=== PATIENT | male | born 1960 | race Caucasian/White ===

== ENCOUNTER 2019-12-11 08:20 | Outpatient (CLI) | payer MEDICARE, OTHER, SELFPAY ==
--- NOTE | 2019-12-11 08:29 | USCV_ITS ---
James Yen Age: 59 Gender: M : 1960 Exam Date: 12/11/2019 08:32 Ordering Phys: Mina Santo MD (Andy) ([email or web address] [place]) Technologist: Ronnie Pak [place] [facility] [place]: STEN[place] Risk Factors: Previous Vascular Surgery: Right Brachial BP: / Left Brachial BP: / Right Left Velocity (cm/s) Spectral Plaque Velocity (cm/s) Spectral Plaque Syst/Diast Broadening Syst/Diast Broadening 109.20/36.40 Prox CCA / 120.20/43.00 Mid CCA / 170.90/53.90 Distal CCA / 232.10/102.50 Prox ICA / 206.90/88.10 Mid ICA / 124.10/52.20 Distal ICA / 140.70 ECA 1.93 ICA/CCA Antegrade Vertebral Antegrade 25.20/ 5.00 cm/s 63.10/ 18.40 cm/s Tri Subclavian Tri 64.10 99.10 FINDINGS Comparison:. 05/04/19 Known occluded left CCA and ICA. Elevated velocities and mild turbulence right carotid artery. Slight increase in velocity since the prior exam. Diffuse elevation of velocity therefore probably due to occluded left carotid. Mild atherosclerosis. CONCLUSIONS Known occluded left carotid. Diffuse elevation of velocity on the right, in part due to occluded left carotid. Mild progression since the prior exam. Right ICA stenosis 50-69%. Dr. Rocio Reynolds DO (Electronically Signed) Final Date: 11 December 2019 09:15 S
== END 2019-12-11 08:21 | disposition home or self-care (01) ==
LOC: US 08:24
PROVIDERS: Visit Provider Thoracic Surgery (Cardiothoracic Vascular Surgery)
DX: I65.23 Occlusion and stenosis of bilateral carotid arteries (principal)
CPT/HCPCS: 93880

== ENCOUNTER 2020-02-24 08:02 | Observation (INO) | payer MEDICARE, OTHER, SELFPAY ==
[2020-02-24] VITALS (19 sets, daily range): BP systolic 122–171; BP diastolic 72–119; PULSE 15–94; RESP 16–22; TEMP 36.2–36.9; O2SAT 90–100; BMI 33.4
--- NOTE | 2020-02-24 08:09 | W.ED.ABDPA2 ---
HPI - Abdominal Pain General: Chief Complaint: Abdominal Pain Stated Complaint: ABD PAIN Time Seen by Provider: 02/24/20 08:09 Source: patient Mode of arrival: ambulatory Limitations: no limitations History of Present Illness: HPI narrative: Patient comes in today with right periumbilical abdominal pain x 2days. Patient denies any fever. Patient denies any diarrhea. Patient denies any difficulty with urination. Patient reports nausea due to pain. Patient reports that the pain is colicky at times. Patient has a history of coronary artery disease and atherosclerosis, seasonal allergies, hyperlipidemia, GERD. Patient denies any chest pain or shortness of breath. Last meal was soup at 2100 last evening, had a diet soda this morning. Associated Symptoms: Reports nausea Review of Systems General: Reports: 10 or more systems reviewed and unremarkable except in HPI and below GI: Reports: abdominal pain and nausea PFSH ED PFSH: Social History Smoking and tobacco status: never smoked Alcohol intake: never Physical Exam Const: COMMON NORMALS: no apparent distress and oriented x3 GENERAL APPEARANCE: cooperative HENMT: COMMON NORMALS: normocephalic, TM's normal bilaterally and external nose normal HEAD & SCALP: normal to inspection and normocephalic NOSE: external nose normal TYMPANIC MEMBRANE: TM's normal bilaterally MOUTH: oral and palatal mucosa normal THROAT: posterior oropharynx normal Eye: GENERAL EYE: normal appearance of both eyes Neck/C-Spine: COMMON NORMALS: full ROM Lymph: LYMPHATIC: no lymphadenopathy noted Chest: COMMONS NORMALS: inspection of chest normal Resp: COMMON NORMALS: normal respiratory effort EFFORT & INSPECTION: Yes able to speak in complete sentences Cardio: COMMON NORMALS: regular rate and regular rhythm RATE: regular rate RHYTHM: regular rhythm GI: AUSCULTATION: Yes normoactive bowel sounds PALPATION: Yes tender Details: RLQ : COMMON NORMALS: Yes no CVA tenderness BLADDER/KIDNEY EXAM: Yes no CVA tenderness Back/Pelvis: COMMON NORMALS: no CVA tenderness and thoracic and lumbar spine normal to inspection Extremity: COMMON NORMALS: normal to inspection Neuro: COMMON NORMALS: oriented x3 and moves all extremities Psych: COMMON NORMALS: mental status grossly normal and cooperative Skin: COMMON NORMALS: no rashes or lesions noted GENERAL SKIN EXAM: no rashes or lesions noted Course ED course: 929, reviewed patient CT scan with Dr. Rehman after discussion with Mr. Yen. Patient needs further evaluation of surgery for acute appendicitis. wjw Vital Signs: Vital signs: Vital Signs Temperature 98.3 F 02/24/20 08:10 Pulse Rate 94 02/24/20 08:10 Respiratory Rate 16 02/24/20 08:19 Blood Pressure 138/84 02/24/20 08:10 Pulse Oximetry 97 02/24/20 08:10 MDM - Abdominal Pain MDM Narrative: Medical decision making narrative: Patient comes in with right periumbilical abdominal pain for the last 2 days. Patient came in today due to the pain persisting and him starting to feel nauseous. Patient reports poor appetite. Exam notes right periumbilical tenderness on palpation. Vital signs are normal. Differential diagnosis includes prostatitis, urinary tract infection, appendicitis, colitis. Laboratory values noted a 12,000 white count, some renal dysfunction with a creatinine 1.5, urinalysis with positive white and red blood cells. CT scan of the abdomen and pelvis noted a tender left with inflamed acute appendicitis. Patient needs surgical evaluation with further treatment. Dr. Cruz was consulted and agreed with plan and will see patient for admission. Lab Data: Labs: Lab Results 02/24/20 02/24/20 02/24/20 Range/Units 08:15 08:15 08:20 WBC 12.8 H (4.0-10.0) 10^3/ uL RBC 5.13 (4.1-5.3) 10^6/u L Hgb 15.5 (11.7-16.6) g/dL Hct 47.1 (42.0-52.0) % MCV 91.8 (80-94) fL MCH 30.2 (28.0-34.0) pg MCHC 32.9 (30.0-36.0) g/dL RDW 12.2 (12.1-15.1) % Plt Count 242 (130-400) 10^3/c mm MPV 10.1 (7.4-10.4) fL Neut % (Auto) 74.5 % Lymph % (Auto) 15.1 % [place] % (Auto) 8.5 % Eos % (Auto) 1.0 % Baso % (Auto) 0.5 % Neut # (Auto) 9.5 H (1.8-7.7) 10^3/u L Lymph # (Auto) 1.9 (0.8-4.8) 10^3/u L [place] # (Auto) 1.1 H (0.2-0.9) 10^3/u L Eos # (Auto) 0.1 (0.0-0.8) 10^3/u L Baso # (Auto) 0.1 (0.0-0.1) 10^3/u L Nucleated RBC % (a uto) 0 % Nucleated RBCs # 0.0 /100WBC Sodium 139 (136-145) mmol/L Potassium 4.6 (3.5-5.1) mmol/L Chloride 103 (98-107) mmol/L Carbon Dioxide 23 (22-29) mmol/L Anion Gap 17.6 (5-19) BUN 14 (8-23) mg/dL Creatinine 1.5 H (0.7-1.2) mg/dL GFR Calculation 47.7 L (90-130) mL/min Glucose 111 (65-115) mg/dL Calculated Osmolal ity 285 (285-295) mOsm/k g Calcium 9.8 (8.5-10.5) mg/dL Total Bilirubin 0.5 (0.15-1.2) mg/dL AST 15 (0-40) U/L ALT 13 (0-41) U/L Alkaline Phosphata se 107 (40-130) IU/L Total Protein 8.1 (6.6-8.7) g/dL Albumin 4.3 (3.5-5.2) g/dL Globulin 3.8 (1.3-4.6) g/dL Lipase 23 (13-60) U/L Urine Color Dark yellow (Yellow) Urine Appearance Clear (CLEAR) Urine pH 5 (5-7) Ur Specific Gravit y 1.020 (1.005-1.030) Urine Protein 1+ H (Negative) Urine Glucose (UA) Norm (Normal) Urine Ketones Negative (Negative) Urine Blood 3+ H (Negative) Urine Nitrate Negative (Negative) Urine Bilirubin 1+ H (NEGATIVE) Urine Urobilinogen 1 H (Negative) mg/dL Ur Leukocyte Bernadette ase Negative (Negative) Urine RBC 5-10 H (0-2) /hpf Urine WBC 5-10 H (0-5) /hpf Ur Squamous Epith Cells None (0-5) Urine Bacteria Trace (NONE) Urine Mucus 3+ Discharge Plan Discharge Prescriptions: No Action ranolazine [Ranexa] 500 mg tablet extended release 12 hr 500 mg PO BID RF: 0 clopidogrel [Plavix] 75 mg tablet 75 mg PO DAILY RF: 0 rosuvastatin [Crestor] 20 mg tablet 20 mg PO DAILY RF: 0 loratadine 10 mg tablet 10 mg PO DAILY RF: 0 omeprazole 40 mg capsule,delayed release(DR/EC) 40 mg PO DAILY RF: 0 topiramate 100 mg capsule,extended release 24hr 100 mg PO DAILY RF: 0 fluticasone propion-salmeterol [Advair Diskus] 250-50 mcg/dose blister with device 1 inh INHALATION BID RF: 0 olopatadine [Pataday] 0.1 % drops 1 drop ophthalmic (eye) BID RF: 0 olopatadine [Patanase] 0.6 % spray,non-aerosol 2 spray INTRANASAL BID RF: 0 ropinirole 1 mg tablet 1 mg PO DAILY RF: 0 montelukast [Singulair] 10 mg tablet 10 mg PO DAILY RF: 0 aspirin 325 mg tablet 325 mg PO DAILY RF: 0 ezetimibe 10 mg tablet 10 mg PO DAILY RF: 0 albuterol sulfate [Ventolin HFA] 90 mcg/actuation HFA aerosol inhaler 2 puff INHALATION Q6H PRNRF: 0 Entresto 49-51 mg tablet 1 tab PO BID 30 Days Qty: 60 RF: 5 Coding Level of Care Code ED Computer Numerical Control Grinder for Chg Fwd Exam Comprehensive
[2020-02-24 08:20] LABS: Basophils # 0.1 10^3/uL (0.0-0.1); Basophils % 0.5 %; Eosinophils # 0.1 10^3/uL (0.0-0.8); Hematocrit 47.1 % (42.0-52.0); Hemoglobin 15.5 g/dL (11.7-16.6); Lymphocytes # 1.9 10^3/uL (0.8-4.8); Lymphocytes % 15.1 %; Mean Corpuscular HGB Conc 32.9 g/dL (30.0-36.0); Mean Corpuscular Hemoglobin 30.2 pg (28.0-34.0); Mean Corpuscular Volume 91.8 fL (80-94); Mean Platelet Volume 10.1 fL (7.4-10.4); Monocytes # 1.1 10^3/uL (0.2-0.9); Monocytes % 8.5 %; Neutrophils # 9.5 10^3/uL (1.8-7.7); Neutrophils % 74.5 %; Nucleated Red Blood Cells % 0 %; Platelet Count 242 10^3/cmm (130-400); Red Blood Count 5.13 10^6/uL (4.1-5.3); Red Cell Distribution Width 12.2 % (12.1-15.1); White Blood Count 12.8 10^3/uL (4.0-10.0)
--- NOTE | 2020-02-24 08:20 | CTR_ITS ---
PROCEDURE INFORMATION: Exam: CT Abdomen And Pelvis Without Contrast Exam date and time: 02/24/2020 8:29 AM Age: 59 years old Clinical indication: Abdominal pain; Localized; Right lower quadrant (rlq); Additional info: Right periumbilical pain, nausea TECHNIQUE: Imaging protocol: Computed tomography of the abdomen and pelvis without contrast. Radiation optimization: All CT scans at this facility use at least one of these dose optimization techniques: automated exposure control; mA and/or kV adjustment per patient size (includes targeted exams where dose is matched to clinical indication); or iterative reconstruction. COMPARISON: No relevant prior studies available. RADIATION DOSE METRICS: Total DLP: 1615.96 mGy-cm FINDINGS: Detailed evaluation of the abdominal and pelvic viscera is somewhat limited in the absence of intravenous contrast. Lungs: Interstitial prominence and mild left lower lobe airspace disease. 4 mm left lower lobe nodule.For patients at low risk (minimal or absent history of smoking and of other known risk factors), no routine follow-up is indicated. For patients at high risk (history of smoking or of other known risk factors), consider optional CT Chest at 12 months. [place] H, Fleischner Society, 2017. AICD. Liver: Fatty infiltration of the liver. Gallbladder and bile ducts: No cholelithiasis or biliary ductal dilatation. Pancreas: No pancreatic mass or ductal dilatation. Spleen: No splenomegaly. Adrenals: 13 mm right adrenal adenoma. Kidneys and ureters: 1- 2 mm nonobstructing bilateral renal calculi. Mild bilateral infiltration of perinephric fat. Stomach and bowel: Mild wall thickening in the nondistended stomach. No significant small bowel dilatation. Prominent stool and diverticula, without pericolonic inflammation. Appendix: Appendicolith in the enlarged appendix measuring 14 mm in maximum diameter with prominent infiltration of periappendiceal fat, consistent with acute appendicitis. Intraperitoneal space: Trace free fluid in the right lower quadrant. Vasculature: Vascular calcification. Normal caliber of the abdominal aorta. Lymph nodes: Subcentimeter lymph nodes. Bladder: Circumferential wall thickening in the nondistended bladder. Reproductive: Unremarkable as visualized. Bones/joints: Schmorl's nodes, degenerative change, and disc bulging. CT/CT kidney stone [id number] IMPRESSION: 1. Appendicolith in the enlarged appendix measuring 14 mm in maximum diameter with prominent infiltration of periappendiceal fat, consistent with acute appendicitis. 2. 1- 2 mm nonobstructing bilateral renal calculi. 3. Additional findings as described above. COMMENTS: Consistent with the [employer]'s Incidental Findings Committee white paper (J Am Kathy Radiol 2017): For any incidental adrenal lesion greater than 1.0 cm but less than or equal to 4.0 cm classified in this report as benign or likely benign (including classification as an adenoma or myelolipoma), no follow-up imaging is recommended per consensus recommendations based on imaging criteria. Further lab evaluation could be pursued if warranted based on clinical findings. Radiation Dose CTDIVOL = (mGy): DLP = 1615.96 (mGy-cm)
[2020-02-24 08:35] LABS: Alanine Aminotransferase 13 U/L (0-41); Albumin Level 4.3 g/dL (3.5-5.2); Alkaline Phosphatase 107 IU/L (40-130); Anion Gap 17.6 (5-19); Aspartate Amino Transferase 15 U/L (0-40); Blood Urea Nitrogen 14 mg/dL (8-23); Calcium 9.8 mg/dL (8.5-10.5); Carbon Dioxide 23 mmol/L (22-29); Chloride 103 mmol/L (98-107); Globulin 3.8 g/dL (1.3-4.6); Glomerular Filtration Rate 47.7 mL/min (90-130); Glucose 111 mg/dL (65-115); Lipase 23 U/L (13-60); Osmolality Calculated 285 mOsm/kg (285-295); Potassium 4.6 mmol/L (3.5-5.1); Sodium 139 mmol/L (136-145); Total Bilirubin 0.5 mg/dL (0.15-1.2); Total Protein 8.1 g/dL (6.6-8.7)
[2020-02-24 08:39] LABS: Add Urine Microscopic? YES; Bilirubin Urine 1+ (NEGATIVE); Blood Urine 3+ (Negative); Glucose Urine UA Norm (Normal); Ketones Urine Negative (Negative); Leukocyte Esterase Urine Negative (Negative); Nitrate Urine Negative (Negative); Protein Urine 1+ (Negative); Urine Appearance Clear (CLEAR); Urine Color Dark Yellow (Yellow); Urobilinogen Urine 1 mg/dL (Negative); pH Urine 5 (5-7)
[2020-02-24 08:40] LABS: Add Urine Culture? No; Bacteria Urine TRACE; Mucus Urine 3+
--- NOTE | 2020-02-24 09:30 | ECG_ITS ---
Measurements Intervals [place]ahan Rate: 88 P: 5 CO: 161 QRS: -18 QRSD: 118 T: 86 QT: 348 QTc: 422 SINUS RHYTHM MINIMAL VOLTAGE CRITERIA FOR LVH, CONSIDER NORMAL VARIANT [MEETS CRITERIA IN ONE OF: R(aVL), S(V1), R(V5), R(V5/V6)+S(V1)] INFERIOR MYOCARDIAL INFARCTION , PROBABLY OLD WITH POSTERIOR EXTENSION [40+ ms WAVE AND/OR ST/T ABNORMALITY IN II/aVFPROMINE Compared to ECG 07/15/2017 13:29:02 T-wave abnormality no longer present Possible ischemia no longer present Myocardial infarct finding still present Electronically Signed On 02-24-2020 16:20:50 CDT by Dalton Mireles M.D. [email or web address]
--- NOTE | 2020-02-24 09:30 | XRR_ITS ---
PROCEDURE INFORMATION: Exam: XR Chest, 1 View Exam date and time: 02/24/2020 9:31 AM Age: 59 years old Clinical indication: Other: Rlq pain; Prior surgery; Surgery date: 6+ months; Surgery type: Pacemaker, heart; Additional info: Appendacitis TECHNIQUE: Imaging protocol: XR of the chest Views: 1 view. COMPARISON: CR Chest 2 views* [id number] 09/25/2018 11:33 AM FINDINGS: Lungs: Emphysematous change and mild interstitial prominence. Pleural space: Stable blunting of the left costophrenic angle. Heart/Mediastinum: No cardiomegaly. AICD. Bones/joints: Median sternotomy. Degenerative change. Soft tissues: Surgical clips overlying the left thyroid. When correlating with the previous study, no significant interval changes are present. XR/XR chest 1V portable [id number] IMPRESSION: Stable appearance of the chest, not significantly changed from 09/25/18.
[2020-02-24] MEDS: sodium chloride 0.9% 1,000 ML 999 ML IV (09:45)
[2020-02-24] MEDS: piperacillin-tazobactam 3.375 GM in sodium chloride 0.9% (plus) 50 ML IV ×3 (09:45→23:05)
[2020-02-24] MEDS: morphine 4 mg/mL SDV 1 mL 2 MG IVP ×2 (09:53→17:19)
[2020-02-24] MEDS: ondansetron 2 mg/ML SDV 2 mL 4 MG IVP (09:53)
[2020-02-24] MEDS: sodium chlor 0.9% + KCl 20 mEq 20 MEQ/1,000 ML BAG 125 MEQ IV (10:37)
--- NOTE | 2020-02-24 10:41 | P.ANESASSM_ITS ---
Pre-Anesthetic Assessment Pre-Anesthetic Assessment: Height/Weight: Height 1.73 m Weight 99.79 kg Temp Pulse Resp BP Pulse Ox 98.3 F 94 17 138/84 96 02/24/20 08:10 02/24/20 08:10 02/24/20 09:53 02/24/20 08:10 02/24/20 09:53 Preop Diagnosis: acute appendicitis Proposed Procedure: Operation Date: 02/24/20 10:50 Proposed Procedures p Laparoscopic Appendectomy(Not Applicable) - Isaiah Michelle MD Familial anesthetic complications: None Was Beta Luis Alfredo taken within 24 hours: N/A Last intake: Intake Dr. Bajwa at 729 Last Liquid Date 02/24/20 Last Liquid Time 07:30 Last Solid Date 02/23/20 Last Solid Time 20:30 Social: Social History: No alcohol and No tobacco Exam: Pre-Anes Outpt Exam: alert, oriented x 3, clear to auscultation bilaterally and regular rate & rhythm Airway: Cervical ROM: WNL MP: 3 Additional comments: chipped, missing, dentures Pulmonary: Pulmonary: COPD Comments: 2nd hand smoke exposure on inhalers CV/HEM: CV/HEM: CAD, HTN and MN Comments: CABG X2 Mitral valve repair CHF/cardiomyopathy EF 36% ICD Plavix 2 days ago > 4 METS achievable - can walk up 5 or 6 flights of stairs : Comments: Scr 1.5 Hepatic: Hepatic: None reported GI: GI: GERD Metabolic: Metabolic: Hyperlipidemia Musc/skel: Musc/skel: None reported Neuropsych: Comments: B/L carotid artery stenosis - totally occluded LICA after CEA Anesthetic Plan: ASA status: 4E Anesthesia: General Risk of > 500 ml blood loss (7ml/kg in children): No Meds/Allergies Current Medications: Current Medications Generic Name Dose Route Start Last Admin Trade Name Freq PRN Reason Stop Dose Admin Potassium Chloride /Sodium Chloride 20 meq in 1,000 m ls @ 125 mls/hr 02/24/20 09:45 02/24/20 10:37 Sodium Chlor 0.9 % + Kcl 20 Meq IV 125 mls/hr .Q8H SARAH Administration PFSH Anesthesia PFSH: Social History Smoking and tobacco status: never smoked Alcohol intake: never Data Anesthesia CBC & Chem 7: 02/24/20 08:15 02/24/20 08:15 Other Labs: Laboratory Results - last 48 hr 02/24/20 02/24/20 02/24/20 08:15 08:15 08:20 WBC 12.8 H RBC 5.13 Hgb 15.5 Hct 47.1 MCV 91.8 MCH 30.2 MCHC 32.9 RDW 12.2 Plt Count 242 MPV 10.1 Neut % (Auto) 74.5 Lymph % (Auto) 15.1 [place] % (Auto) 8.5 Eos % (Auto) 1.0 Baso % (Auto) 0.5 Neut # (Auto) 9.5 H Lymph # (Auto) 1.9 [place] # (Auto) 1.1 H Eos # (Auto) 0.1 Baso # (Auto) 0.1 Nucleated RBC % (auto) 0 Nucleated RBCs # 0.0 Sodium 139 Potassium 4.6 Chloride 103 Carbon Dioxide 23 Anion Gap 17.6 BUN 14 Creatinine 1.5 H GFR Calculation 47.7 L Glucose 111 Calculated Osmolality 285 Calcium 9.8 Total Bilirubin 0.5 AST 15 ALT 13 Alkaline Phosphatase 107 Total Protein 8.1 Albumin 4.3 Globulin 3.8 Lipase 23 Urine Color Dark yellow Urine Appearance Clear Urine pH 5 Ur Specific [place] 1.020 Urine Protein 1+ H Urine Glucose (UA) Norm Urine Ketones Negative Urine Blood 3+ H Urine Nitrate Negative Urine Bilirubin 1+ H Urine Urobilinogen 1 H Ur Leukocyte Esterase Negative Urine RBC 5-10 H Urine WBC 5-10 H Ur Squamous Epith Cells None Urine Bacteria Trace Urine Mucus 3+ Cardiac Studies: No Data to Display
[2020-02-24] MEDS: sodium chloride 0.9% 1,000 ML 30 ML IV (10:47)
--- NOTE | 2020-02-24 10:54 | P.HP_ITS ---
Providers/Chief Complaint Admitting Physician: Dr. Michelle Chief Complaint: APPENDECTOMY History of Present Illness James Yen is a 59 year old male who presented to the ER with 1 week history of right lower quadrant pain and nausea but no vomiting. Patient states that his pain progressively got worse yesterday and he had a low-grade fever and therefore he presented to the ER for further evaluation. No prior abdominal surgeries in the past. No prior colonoscopy. He has had a CABG and mitral valve replacement and carotid endarterectomy in the past and is currently on aspirin and Plavix. Review of Systems General: Reports: 10 or more systems reviewed and unremarkable except in HPI and below Medications/Allergies Home Medications Medication Instructions Recorded Confirmed Last Taken Type albuterol sulfate 90 mcg/actuation 2 puff INHALATION Q6H PRN 02/19/20 02/24/20 Unknown History aerosol inhaler aspirin 325 mg tablet 325 mg PO DAILY 02/19/20 02/24/20 02/23/20 History clopidogrel 75 mg tablet 75 mg PO DAILY 02/19/20 02/24/20 02/23/20 History fluticasone 250 mcg-salmeterol 50 1 inh INHALATION BID 02/19/20 02/24/20 02/23/20 History mcg/dose blistr powdr for inhalation montelukast 10 mg tablet 10 mg PO DAILY 02/19/20 02/24/20 02/23/20 History omeprazole 40 mg capsule,delayed 40 mg PO DAILY 02/19/20 02/24/20 02/22/20 History release ranolazine 500 mg tablet,extended 500 mg PO BID 02/19/20 02/24/20 02/23/20 H istory release,12 hr rosuvastatin 20 mg tablet 20 mg PO DAILY 02/19/20 02/24/20 02/22/20 History sacubitril 49 mg-valsartan 51 mg 1 tab PO BID 30 Days #60 tab 02/19/20 02/24/20 02/23/20 Rx tablet topiramate 100 mg capsule,extended 100 mg PO DAILY 02/19/20 02/24/20 02/23/20 History release 24 hr Allergies Allergy/AdvReac Type Severity Reaction Status Date / Time No Known Allergies Allergy Unverified 02/24/20 08:12 PFSH Acute PFSH: Medical History ASHD (arteriosclerotic heart disease) Bilateral carotid artery stenosis Cardiomyopathy CHF (congestive heart failure) GERD (gastroesophageal reflux disease) HTN (hypertension), benign Hyperlipidemia ICD (implantable cardioverter-defibrillator) in place Surgical History H/O right wrist surgery History of ankle surgery History of CEA (carotid endarterectomy) History of mitral valve repair Hx of CABG Family History Other CAD (coronary artery disease) Hypertension Social History Smoking and tobacco status: never smoked Alcohol intake: never Vitals/I&O/Wt Last Vital Signs Temp 98.3 F 02/24/20 08:10 Pulse 15 L 02/24/20 10:41 Resp 16 02/24/20 10:41 BP 124/73 02/24/20 10:41 Pulse Ox 96 02/24/20 10:41 02/23/20 02/24/20 02/24/20 22:59 06:59 14:59 Intake Total 1050 / 1050 Balance 1050 / 1050 Weight last 48 hrs Weight 220 lb Physical Exam Narrative: EXAM NARRATIVE: HEENT: Normocephalic Eye: Sclera /conjunctiva normal Respiratory and chest: Bilateral clear breath sounds on auscultation Cardiovascular: Normal S1 and S2 heart sounds Abdomen: Soft to palpation, tender right lower quadrant, no guarding or rigidity Neurological: Oriented to place person and time Skin: Intact, no lesions appreciated on gross exam Data : 02/24/20 08:15 02/24/20 08:15 CT Abd/Pel: Radiologist's impression: 1. Appendicolith in the enlarged appendix measuring 14 mm in maximum diameter with prominent infiltration of periappendiceal fat, consistent with acute appendicitis. 2. 1- 2 mm nonobstructing bilateral renal calculi. 3. Additional findings as described above. A&P Assessment and plan (1) Acute appendicitis: 59-year-old gentleman with 1 week history of lower abdominal pain currently on aspirin and Plavix due to significant cardiac history. CT abdomen pelvis today showed acute appendicitis no evidence of perforation. Patient is hemodynamically stable with no peritonitis Plan for laparoscopic possible open appendectomy today Procedure, risks, benefits and alternatives have been discussed with the patient who wishes to proceed with surgery. Status: Acute Attestations Medical Necessity Statement*: Acute appendicitis Coding Level of Care Code Acute Patient Transport Orderly for [facility] Claudia Diagnoses Acute appendicitis K35.80
[2020-02-24] MEDS: fentaNYL 50 mcg/mL INJ 2mL 100 MCG IVP (12:35)
[2020-02-24] MEDS: labetalol 5 mg/mL SDV 20mL IVP (12:39)
--- NOTE | 2020-02-24 12:39 | P.OP_ITS ---
Operative Report Date of procedure: February 24, 2020 Pre-op Diagnosis: acute appendicitis Post-op Diagnosis: Acute perforated appendicitis Procedure Done: Laparoscopic appendectomy Specimens removed/disposition: Appendix Surgeon: Isaiah Michelle Anesthesia: General Estimated blood loss (mL): 10 Condition: stable Disposition: PACU Procedure: The patient was taken to the Operating Room and intubated under ge neral anesthesia after antibiotic had been administered. Using a 15 blade, a 1- cm infraumbilical incision was made and using open Rosemary technique, the peritoneal cavity was entered. A 12mm port with balloon was placed and 14 mm of pneumoperitoneum was created and 10-mm 30 degree scope was introduced. Two separate 5mm ports were placed in the left and right lower quadrant under direct visualization. The appendix was noted in the right lower quadrant and appeared acutely inflamed with suppuration.. Using [place] forceps, an opening was made in the mesoappendix near the base of the appendix. An Endo FERMIN stapler 45mm long 3.5mm blue load was introduced to divide the appendix at it's base. Using electrocautery, the mesoappendix including the appendicular artery was divided. And the level of the appendicolith there appeared to be a small perforation. There was no bleeding noted and the staple line appeared intact. The right lower quadrant was irrigated with saline and an EndoCatch bag was introduced to remove the appendix and appendicolith. All three ports were removed under direct visualization and there was no bleeding noted on the port sites. 10cc of 0.5% Marcaine was infiltrated at the port sites. The fascia at the umbilical port was closed using figure of eight 0-Vicryl sutures and subcutaneous tissue was approximated using 3-0 Vicryl and skin at all 3 port sites was closed using 4-0 Monocryl and Dermabond.
--- NOTE | 2020-02-24 13:44 | SUR.PHASEI ---
1226 pt awakes on arrival to pacu oral airway out pt drowsy restless states (i need to pee) 1235 pt now complains of abd pain of 7 see med given pt also given urinal, unable to void at this time.pt BP remains elevated 1239 see Labetol ivip given as ordered 1250 pt BP much improved. 1304 pt awake alert talkative denie pain and nausea, pt unable to use urinal, wants to get up to BR. pt taking sips of sprite, report called to floor and pt has his cell phone , the only belonging he had from ER. pt to floor per cart 1320 pt up and walked to bed no complaints , pt talkative to staff in room. bp 143/87, hr 77, resp 18, sats 96% on RA.
[2020-02-24] MEDS: topiramate 100 mg Tablet PO (14:10)
[2020-02-24] MEDS: lactated ringers 1,000 ML 75 ML IV (14:10)
[2020-02-24] MEDS: HYDROcodone-acetaminophen 5-325 mg Tablet 1 TAB PO (14:10)
[2020-02-24] MEDS: montelukast sodium 10 mg Tablet PO (14:10)
[2020-02-24] MEDS: docusate sodium 100 mg Capsule PO (17:42)
[2020-02-24] MEDS: ranolazine (12HR) 500 mg Tablet PO (17:43)
[2020-02-24] MEDS: sacubitril/valsartan 24-26 mg Tablet 1 EACH PO (17:43)
--- NOTE | 2020-02-24 19:02 | PC.NURSE ---
patient has only urinated a small amount since surgery, bladder scan showed 365mL. patient stated that he did not want to be straight cathed. he asked that we wait about 20 minutes and let him try to pee. passed on to night nurse
--- NOTE | 2020-02-24 21:05 | PC.NURSE ---
Patient walked three laps around the med/surg floor. Had no pain afterwards, wanting to walk more laps throughout the night. Still having pain while urination, has the urge to urinate, but does not want to.
[2020-02-24] MEDS: lidocaine 2% Urojet 20 mL TOPICAL (21:25)
[2020-02-25] MEDS: lactated ringers 1,000 ML 75 ML IV (04:17)
[2020-02-25 07:58] VITALS: BP 152/90; PULSE 83; RESP 17; TEMP 36.3; O2SAT 93
[2020-02-25] MEDS: piperacillin-tazobactam 3.375 GM in sodium chloride 0.9% (plus) 50 ML IV (08:10)
[2020-02-25] MEDS: sacubitril/valsartan 24-26 mg Tablet 1 EACH PO (08:10)
[2020-02-25] MEDS: ranolazine (12HR) 500 mg Tablet PO (08:10)
[2020-02-25] MEDS: montelukast sodium 10 mg Tablet PO (08:10)
[2020-02-25] MEDS: docusate sodium 100 mg Capsule PO (08:11)
[2020-02-25] MEDS: atorvastatin 40 mg Tablet 80 MG PO (08:11)
[2020-02-25] MEDS: pantoprazole DR 40 mg Tablet PO (08:11)
[2020-02-25] MEDS: topiramate 100 mg Tablet PO (08:11)
[2020-02-25] MEDS: albuterol 8 gm MDI 2 PUFF INHALATION (09:14)
[2020-02-25 09:16] VITALS: PULSE 63; RESP 18; O2SAT 96
--- NOTE | 2020-02-25 10:48 | PC.NURSE ---
Pt refused cardiac monitoring, removed leads, reported to Dr. Michelle
[2020-02-25 11:01] VITALS: BP 130/78; PULSE 81; RESP 17; TEMP 36.8; O2SAT 92
[2020-02-25 11:57] VITALS: BP 130/78; PULSE 81; RESP 17; TEMP 36.8; O2SAT 92
[2020-02-25 12:00] VITALS: BP 142/70; PULSE 98; RESP 18; TEMP 36.7; O2SAT 93
--- NOTE | 2020-02-25 12:08 | P.PN_ITS ---
Subjective Subjective: Interval history: Patient has been doing well, no nausea or vomiting still complaining of pain with urination Vitals/I&O/Wt Last Vital Signs Temp 98.3 F 02/25/20 11:57 Pulse 81 02/25/20 11:57 Resp 17 02/25/20 11:57 BP 130/78 02/25/20 11:57 Pulse Ox 92 02/25/20 11:57 02/24/20 02/25/20 02/25/20 22:59 06:59 14:59 Intake Total 410 / 2990 1530 / 2990 Output Total 620 / 1855 1025 / 1855 Balance -210 / 1135 505 / 1135 Weight last 48 hrs Weight 220 lb Physical Exam Narrative: EXAM NARRATIVE: Abdomen: Soft, minimally tender, incision clean dry and intact Urinary Catheter Management^: [place]: Cath Placed During This Visit: yes, but has since been removed by the nurse Urinary Catheter Date of Insertion: 02/24/20 Urinary Catheter Time of Insertion: 11:15 Date Urinary Catheter Removed: 02/24/20 Time Urinary Catheter Discontinued: 12:25 Data : 02/24/20 08:15 02/24/20 08:15 A&P Assessment and plan (1) S/P laparoscopic appendectomy: Status post laparoscopic appendectomy doing well DC home today Status: Acute Attestations Medical Necessity Statement*: Acute appendicitis DC home today Coding Level of Care Code Acute Dip Stand Loader for Crystal Taylor Diagnoses S/P laparoscopic appendectomy Z90.49
--- NOTE | 2020-02-25 12:09 | PM.DCS ---
Discharge Providers Date of Admission: 02/24/20 12:08 Date of Discharge: February 25, 2020 Attending Provider at Admission: Isaiah Michelle MD Attending Provider at Discharge: Isaiah Michelle MD Primary Care Provider: Roger Howe PA-C Diagnoses at Discharge Discharge Diagnosis (1) S/P laparoscopic appendectomy: Status: Acute Reason for Visit Reason for Visit: Reason For Visit: APPENDECTOMY Hospital Course Hospital Course: This is a 59-year-old male who presented to the ER with 1 week history of right lower quadrant pain and CT scan showed acute appendicitis. Patient underwent laparoscopic appendectomy. He was admitted overnight for IV antibiotics since there was concern for possible perforation. Patient also has significant cardiac comorbidities and therefore was monitored overnight. At time of discharge is tolerating a regular diet, ambulating and his pain is well controlled. His vital signs are stable. Physical Exam Narrative: EXAM NARRATIVE: Abdomen: Soft, minimally tender, nondistended, incisions clean dry and intact Urinary Catheter Management^: [place]: Cath Placed During This Visit: yes, but has since been removed by the nurse Urinary Catheter Date of Insertion: 02/24/20 Urinary Catheter Time of Insertion: 11:15 Date Urinary Catheter Removed: 02/24/20 Time Urinary Catheter Discontinued: 12:25 Discharge Data Data Completed and Pending: Completed Studies During Hospitalization Category Date Time Status CT kidney stone 7 4176 Urgent Cat Scan 02/24/20 08:20 Completed XR chest 1V nikolay ble [id number] Stat Exams 02/24/20 09:30 Completed Pending at discharge Category Date Time Status ES surgery / GI i mages Routine Exams 02/24/20 11:14 Taken Pathology: Surgic al [PTH] Routine Pth 02/24/20 12:14 Ordered Vitals: Last Vital Signs Temp 98.3 F 02/25/20 11:57 Pulse 81 02/25/20 11:57 Resp 17 02/25/20 11:57 BP 130/78 02/25/20 11:57 Pulse Ox 92 02/25/20 11:57 Discharge Plan Discharge Patient Disposition: Home, Self-Care Condition: Stable Prescriptions: [place] 5-325 mg tablet 1 tab PO Q6H 7 Days Qty: 20 RF: 0 Colace 100 mg capsule 100 mg PO BID Qty: 30 RF: 0 Continued ranolazine [Ranexa] 500 mg tablet extended release 12 hr 500 mg PO BID RF: 0 clopidogrel [Plavix] 75 mg tablet 75 mg PO DAILY RF: 0 rosuvastatin [Crestor] 20 mg tablet 20 mg PO DAILY RF: 0 omeprazole 40 mg capsule,delayed release(DR/EC) 40 mg PO DAILY RF: 0 topiramate 100 mg capsule,extended release 24hr 100 mg PO DAILY RF: 0 fluticasone propion-salmeterol [Advair Diskus] 250-50 mcg/dose blister with device 1 inh INHALATION BID RF: 0 montelukast [Singulair] 10 mg tablet 10 mg PO DAILY RF: 0 aspirin 325 mg tablet 325 mg PO DAILY RF: 0 albuterol sulfate [Ventolin HFA] 90 mcg/actuation HFA aerosol inhaler 2 puff INHALATION Q6H PRN (Reason: Shortness Of Breath) RF: 0 Entresto 49-51 mg tablet 1 tab PO BID 30 Days Qty: 60 RF: 5 Discharge Orders: Discharge Order (Routine); Ordered 02/25/20 Ordered By: Isaiah Michelle Referrals: Isaiah Michelle MD [Physician] - 2 weeks Activity Restrictions/Additional Instructions: 1. Up and walking as tolerated. 2. Ok to shower in 48 hours after surgery. 3. Remove Dermabond dressing in 7-10 days. 4. Do not lift more than 10 pounds. 5. Do not operate heavy machinery or drive while using pain medications. 6. Advised to return to ER or contact my office if there are any signs of infection like, increasing pain, fevers, chills, redness or drainage of pus. Discharge Attestations Time Spent in Discharge Care*: less than 30 min Quality Metrics Clinical Quality Measures During this hospital stay, did patient experience: None Coding Level of Care Code Acute Geospatial Technician for Chg Fwd Diagnoses S/P laparoscopic appendectomy Z90.49
--- NOTE | 2020-02-25 13:25 | PC.NURSE ---
Discharge Discharge instructions given and reviewed with patient, patient signed release paperwork, verbalized understanding. IV removed, tip intact, patient tolerated well, scripts sent to pharmacy. Went to patients room to walk him down to his ride and he was no longer in there.
== END 2020-02-25 13:32 | disposition home or self-care (01) ==
LOC: ER 09:50 → OPS 09:52 → MEDSURG 13:32
PROVIDERS: Nurse Practitioner Family; Admitting Provider Surgery; Emergency Provider Family Medicine; Visit Provider Surgery
PROC: 0DTJ4ZZ Resection of Appendix, Percutaneous Endoscopic Approach (ICD-10-PCS; CPT 44970; principal; 2020-02-24 10:50)
DX: K35.80 Unspecified acute appendicitis (principal); Z79.82 Long term (current) use of aspirin; J44.9 Chronic obstructive pulmonary disease, unspecified; I11.0 Hypertensive heart disease with heart failure; I25.10 Atherosclerotic heart disease of native coronary artery without angina pectoris; I25.2 Old myocardial infarction; Z95.1 Presence of aortocoronary bypass graft; Z79.02 Long term (current) use of antithrombotics/antiplatelets; K21.9 Gastro-esophageal reflux disease without esophagitis; E78.5 Hyperlipidemia, unspecified
CPT/HCPCS: 44970; 12345; 51702; 71045; 74176; 80053; 81001; 83690; 85025; 88304; 93005; 94640; 96361; 96365; 96366; 96375; 99283; 99285; A9270; G0378; J1100; J2001; J2250; J2270; J2370; J2405; J2543; J3010; J3490; J7030

== ENCOUNTER → 2020-02-28 13:14 | Outpatient (BNVA) | payer MEDICARE, OTHER, SELFPAY | PROVIDERS: Visit Provider Emergency Medicine | DX: Z90.49 Acquired absence of other specified parts of digestive tract (principal); R05 Cough | CPT/HCPCS: 71046 ==

== ENCOUNTER 2020-02-29 18:41 | Emergency (ER) | payer MEDICARE, OTHER, SELFPAY ==
[2020-02-29 18:43] VITALS: BMI 31.0
--- NOTE | 2020-02-29 18:45 | W.ED.ABDPA2 ---
HPI - Abdominal Pain General: Chief Complaint: Abdominal Pain Stated Complaint: UPPER ABD PAIN Time Seen by Provider: 02/29/20 18:45 Source: patient Mode of arrival: ambulatory Limitations: no limitations History of Present Illness: HPI narrative: Patient comes in for reevaluation of some increased shortness of breath and chest congestion status post surgery 1 week ago. Patient recently gone under procedure for a appendicitis. Patient reports no fever or chills. Patient was seen at primary care today and diagnosed with bronchitis but had some increased difficulty with breathing and some chest discomfort and was recommended to come to the emergency room for further evaluation. Patient appears well. Patient appears in no pain at rest. Patient states that the pain is under his right rib area and seems worse when he is laying on that side. Patient does not appear in significant pain at this time. Review of Systems General: Reports: 10 or more systems reviewed and unremarkable except in HPI and below Card: Reports: chest pain Resp: Reports: shortness of breath (mild) PFS ED PFSH: Medical History (Updated 02/29/20 @ 21:36 by RONAN Lorenzo) ASHD (arteriosclerotic heart disease) Bilateral carotid artery stenosis Bronchitis after surgery Cardiomyopathy CHF (congestive heart failure) GERD (gastroesophageal reflux disease) HTN (hypertension), benign Hyperlipidemia ICD (implantable cardioverter-defibrillator) in place Surgical History H/O right wrist surgery History of ankle surgery History of CEA (carotid endarterectomy) History of mitral valve repair Hx of CABG S/P laparoscopic appendectomy (~02/24/20) Social History Smoking and tobacco status: never smoked Alcohol intake: never Physical Exam Const: COMMON NORMALS: no apparent distress and oriented x3 GENERAL APPEARANCE: cooperative HENMT: COMMON NORMALS: normocephalic, TM's normal bilaterally and external nose normal HEAD & SCALP: normal to inspection and normocephalic NOSE: external nose normal TYMPANIC MEMBRANE: TM's normal bilaterally MOUTH: oral and palatal mucosa normal THROAT: posterior oropharynx normal Eye: GENERAL EYE: normal appearance of both eyes Neck/C-Spine: COMMON NORMALS: full ROM Lymph: LYMPHATIC: no lymphadenopathy noted Chest: COMMONS NORMALS: inspection of chest normal Resp: COMMON NORMALS: normal respiratory effort EFFORT & INSPECTION: Yes able to speak in complete sentences Cardio: COMMON NORMALS: regular rate and regular rhythm RATE: regular rate RHYTHM: regular rhythm GI: COMMON NORMALS: non-tender : COMMON NORMALS: Yes no CVA tenderness BLADDER/KIDNEY EXAM: Yes no CVA tenderness Back/Pelvis: COMMON NORMALS: no CVA tenderness and thoracic and lumbar spine normal to inspection Extremity: COMMON NORMALS: normal to inspection Neuro: COMMON NORMALS: oriented x3 and moves all extremities Psych: COMMON NORMALS: mental status grossly normal and cooperative Skin: COMMON NORMALS: no rashes or lesions noted GENERAL SKIN EXAM: no rashes or lesions noted Course Vital Signs: Vital signs: Vital Signs Temperature 98.3 F 02/29/20 18:46 Pulse Rate 92 02/29/20 21:52 Respiratory Rate 20 H 02/29/20 21:52 Blood Pressure 108/69 02/29/20 21:52 Pulse Oximetry 96 02/29/20 21:52 MDM - Abdominal Pain MDM Narrative: Medical decision making narrative: Patient comes in today for concerns of right side chest discomfort and shortness of breath. Patient states that he is 1 week postop for appendicitis. Patient is seen his primary care today and he recommended that he come to the emergency room for further evaluation, to rule out possible PE. Exam notes lungs clear to auscultation. Vital signs are normal. Skin is warm and dry. Abdomen soft nontender to palpation. Differential diagnosis includes PE, postsurgical pain, ACS. CT scan of the chest for PE protocol was negative for PE, patient did show some bowel gas that may be secondary to surgery. Laboratory values noted a white count of 14,000, glucose 134, sodium 141 and potassium 4.5. Troponin was less than 15 on the first and less than 15 on the second draw. EKG showed no significant changes. Feel that pain is probably due to abdominal gas secondary to surgery. Recommended patient drink plenty of fluids and stay as active as possible and use Tylenol as needed for pain. Patient was accepting of the diagnosis at this time. Recommend return to the ER for high fever or worsening pain. Patient reported understanding agreed to plan. Lab Data: Labs: Lab Results 02/29/20 02/29/20 02/29/20 Range/Units 19:08 19:08 19:08 WBC 14.6 H (4.0-10.0) 10^3/ uL RBC 4.58 (4.1-5.3) 10^6/u L Hgb 14.3 (11.7-16.6) g/dL Hct 42.6 (42.0-52.0) % MCV 93.0 (80-94) fL MCH 31.2 (28.0-34.0) pg MCHC 33.6 (30.0-36.0) g/dL RDW 12.2 (12.1-15.1) % Plt Count 348 (130-400) 10^3/c mm MPV 10.3 (7.4-10.4) fL Neut % (Auto) 87.1 % Lymph % (Auto) 7.2 % Stone % (Auto) 4.0 % Eos % (Auto) 0.5 % Baso % (Auto) 0.3 % Neut # (Auto) 12.8 H (1.8-7.7) 10^3/u L Lymph # (Auto) 1.1 (0.8-4.8) 10^3/u L Stone # (Auto) 0.6 (0.2-0.9) 10^3/u L Eos # (Auto) 0.1 (0.0-0.8) 10^3/u L Baso # (Auto) 0.1 (0.0-0.1) 10^3/u L Nucleated RBC % (a uto) 0 % Nucleated RBCs # 0.0 /100WBC Sodium 141 (136-145) mmol/L Potassium 4.5 (3.5-5.1) mmol/L Chloride 108 H (98-107) mmol/L Carbon Dioxide 22 (22-29) mmol/L Anion Gap 15.5 (5-19) BUN 19 (8-23) mg/dL Creatinine 1.1 (0.7-1.2) mg/dL GFR Calculation 68.3 L (90-130) mL/min Glucose 134 H (65-115) mg/dL Calculated Osmolal ity 290 (285-295) mOsm/k g Calcium 9.7 (8.5-10.5) mg/dL Total Bilirubin 0.2 (0.15-1.2) mg/dL AST 27 (0-40) U/L ALT 27 (0-41) U/L Alkaline Phosphata se 102 (40-130) IU/L Troponin T Baselin e 14 (0-15) ng/mL Troponin T 120 Min nadya (0-15) ng/mL Delta Troponin T (0-10) ABS# Total Protein 7.2 (6.6-8.7) g/dL Albumin 3.7 (3.5-5.2) g/dL Globulin 3.5 (1.3-4.6) g/dL Urine Color (Yellow) Urine Appearance (CLEAR) Urine pH (5-7) Ur Specific Gravit y (1.005-1.030) Urine Protein (Negative) Urine Glucose (UA) (Normal) Urine Ketones (Negative) Urine Blood (Negative) Urine Nitrate (Negative) Urine Bilirubin (NEGATIVE) Urine Urobilinogen (Negative) mg/dL Ur Leukocyte Bernadette ase (Negative) Urine RBC (0-2) /hpf Urine WBC (0-5) /hpf Ur Squamous Epith Cells (0-5) Ur Transition Epit h Cell /hpf Urine Bacteria (NONE) 02/29/20 02/29/20 Range/Units 20:44 21:23 WBC (4.0-10.0) 10^3/ uL RBC (4.1-5.3) 10^6/u L Hgb (11.7-16.6) g/dL Hct (42.0-52.0) % MCV (80-94) fL MCH (28.0-34.0) pg MCHC (30.0-36.0) g/dL RDW (12.1-15.1) % Plt Count (130-400) 10^3/c mm MPV (7.4-10.4) fL Neut % (Auto) % Lymph % (Auto) % Stone % (Auto) % Eos % (Auto) % Baso % (Auto) % Neut # (Auto) (1.8-7.7) 10^3/u L Lymph # (Auto) (0.8-4.8) 10^3/u L Stone # (Auto) (0.2-0.9) 10^3/u L Eos # (Auto) (0.0-0.8) 10^3/u L Baso # (Auto) (0.0-0.1) 10^3/u L Nucleated RBC % (a uto) % Nucleated RBCs # /100WBC Sodium (136-145) mmol/L Potassium (3.5-5.1) mmol/L Chloride (98-107) mmol/L Carbon Dioxide (22-29) mmol/L Anion Gap (5-19) BUN (8-23) mg/dL Creatinine (0.7-1.2) mg/dL GFR Calculation (90-130) mL/min Glucose (65-115) mg/dL Calculated Osmolal ity (285-295) mOsm/k g Calcium (8.5-10.5) mg/dL Total Bilirubin (0.15-1.2) mg/dL AST (0-40) U/L ALT (0-41) U/L Alkaline Phosphata se (40-130) IU/L Troponin T Baselin e (0-15) ng/mL Troponin T 120 Min nadya 12.29 (0-15) ng/mL Delta Troponin T -1.71 L (0-10) ABS# Total Protein (6.6-8.7) g/dL Albumin (3.5-5.2) g/dL Globulin (1.3-4.6) g/dL Urine Color Yellow (Yellow) Urine Appearance Clear (CLEAR) Urine pH 7 (5-7) Ur Specific Gravit y 1.005 (1.005-1.030) Urine Protein 1+ H (Negative) Urine Glucose (UA) Norm (Normal) Urine Ketones Negative (Negative) Urine Blood 2+ H (Negative) Urine Nitrate Negative (Negative) Urine Bilirubin Neg (NEGATIVE) Urine Urobilinogen 1 H (Negative) mg/dL Ur Leukocyte Bernadette ase Negative (Negative) Urine RBC 0-4 H (0-2) /hpf Urine WBC Rare (0-5) /hpf Ur Squamous Epith Cells Rare (0-5) Ur Transition Epit h Cell Rare /hpf Urine Bacteria Trace (NONE) EKG Data ^: EKG 1: Attestation: I personally reviewed and interpreted this EKG as follows: (1899, regular rate 89 bpm, no ectopy noted, no ST elevation noted) EKG 2: Attestation: I personally reviewed and interpreted this EKG as follows: (2035, 86 bpm regular rate, no ectopy, no ST elevation, no change from prior ekg. wjw) Discharge Plan Discharge Patient Disposition: Home, Self-Care Clinical Impression: Atypical chest pain Condition: Stable Prescriptions: No Action ranolazine [Ranexa] 500 mg tablet extended release 12 hr 500 mg PO BID RF: 0 clopidogrel [Plavix] 75 mg tablet 75 mg PO DAILY RF: 0 rosuvastatin [Crestor] 20 mg tablet 20 mg PO DAILY RF: 0 omeprazole 40 mg capsule,delayed release(DR/EC) 40 mg PO DAILY RF: 0 topiramate 100 mg capsule,extended release 24hr 100 mg PO DAILY RF: 0 fluticasone propion-salmeterol [Advair Diskus] 250-50 mcg/dose blister with device 1 inh INHALATION BID RF: 0 montelukast [Singulair] 10 mg tablet 10 mg PO DAILY RF: 0 aspirin 325 mg tablet 325 mg PO DAILY RF: 0 albuterol sulfate [Ventolin HFA] 90 mcg/actuation HFA aerosol inhaler 2 puff INHALATION Q6H PRN (Reason: Shortness Of Breath) RF: 0 Entresto 49-51 mg tablet 1 tab PO BID 30 Days Qty: 60 RF: 5 amoxicillin-pot clavulanate 875-125 mg tablet 1 tab PO BID 7 Days Qty: 14 RF: 0 guaifenesin 600 mg tablet extended release 12hr 600 mg PO Q12H Qty: 20 RF: 0 prednisone 10 mg tablet 10 mg PO DAILY 5 Days Qty: 5 RF: 0 [place] 5-325 mg tablet 1 tab PO Q6H 7 Days Qty: 20 RF: 0 Colace 100 mg capsule 100 mg PO BID Qty: 30 RF: 0 Discharge Orders: Discharge Order (Routine); Ordered 02/29/20 Ordered By: Mina Taylor Discharge Diet: Usual diet Discharge Activity: Increase activity as tolerated Patient Instructions: Chest Pain (ED) Activity Restrictions/Additional Instructions: Drink plenty of water. Activity as tolerated. Use acetaminophen as needed for pain. Healthy diet. Monitor for fever. Follow-up with primary care in 1 week. Return to the ER with worsening chest pain and shortness of breath, high fever, or new concerns. Discharge Date/Time: 02/29/20 21:54 Coding Level of Care Code ED Experiential Therapist for Crystal Fwd Exam Comprehensive
[2020-02-29 18:46] VITALS: BP 132/83; PULSE 88; RESP 16; TEMP 36.8; O2SAT 96
--- NOTE | 2020-02-29 18:46 | XR_ITS ---
WS: [id number] XR chest 1V portable [id number] REASON FOR EXAM: upper abd pain, cough FINDINGS: No free air under the diaphragms. Single electrode pacemaker extends from the left side of the electrode is satisfactory. Previous coronary bypass. No pneumonia, pleural effusion, pulmonary edema. XR/XR chest 1V portable [id number] IMPRESSION: Previous coronary bypass. Single electrode pacemaker extends from the left Negative chest for active pathology.
--- NOTE | 2020-02-29 18:47 | ECG_ITS ---
Measurements Intervals [place] Rate: 86 P: 0 DC: 161 QRS: -27 QRSD: 114 T: 124 QT: 362 QTc: 434 SINUS RHYTHM VOLTAGE CRITERIA FOR LVH INFERIOR MYOCARDIAL INFARCTION , OF INDETERMINATE AGE MODERATE T-WAVE ABNORMALITY, CONSIDER LATERAL ISCHEMIA Compared to ECG 02/24/2020 09:49:04 No significant changes Electronically Signed On 03-01-2020 15:23:26 CDT by Deja Szymanski M.D. [email or web address]
--- NOTE | 2020-02-29 19:07 | CTR_ITS ---
PROCEDURE INFORMATION: Exam: CT Angiography Chest With Contrast Exam date and time: 02/29/2020 7:20 PM Age: 59 years old Clinical indication: Shortness of breath; Right-sided chest pain; Prior surgery; Surgery date: 3-7 days post-operative; Surgery type: Gb last sat. , Also previous surgery for open heart and pacer; Additional info: Chest pain, mild dyspnea, S/P surger 1 week TECHNIQUE: Imaging protocol: Computed tomographic angiography of the chest with intravenous contrast. 3D rendering: MIP and/or 3D reconstructed images were created by the technologist. Radiation optimization: All CT scans at this facility use at least one of these dose optimization techniques: automated exposure control; mA and/or kV adjustment per patient size (includes targeted exams where dose is matched to clinical indication); or iterative reconstruction. Contrast material: VISI 320; Contrast volume: 76 ml; Contrast route: IV; COMPARISON: CR XR chest 1V portable [id number] 02/29/2020 6:53 PM FINDINGS: The the patient is status post median sternotomy. There are degenerative changes of the spine. There is a pacemaker over the left hemithorax causing streak artifact. There is scarring and atelectasis within the lung bases. There is some scarring throughout the left lower lobe. There is no focal consolidation. There is no pleural effusion. There is no pneumothorax. There are no suspicious pulmonary nodules. The central airways are normal in caliber. The thyroid gland is unremarkable. There is no axillary adenopathy. There is no mediastinal adenopathy. There is no hilar adenopathy. Interrogation of the pulmonary arteries in multiple planes shows no evidence for pulmonary embolism. The aorta is normal in caliber with no evidence for aneurysm or dissection. The heart is normal in size. There is no evidence for right heart failure. There is a 16 mm right adrenal adenoma similar to the previous CT of the abdomen. The history states recent gallbladder surgery. There does appear to be a cystic structure in the gallbladder fossa which may represent a gallbladder. No surgical clips are seen. There is a small amount of air and fat stranding within the soft tissues near the gallbladder fundus. Did the patient have previous cholecystostomy? CT/CT angio chest PE protcl [id number] IMPRESSION: 1. No evidence for pulmonary embolism. 2. No focal infiltrates. Scarring atelectasis within the lung bases. 3. What is thought to be a contracted gallbladder is seen in the gallbladder fossa. There is also some fat stranding as well as some extraluminal air adjacent to the gallbladder fossa. Did the patient have prior cholecystostomy? Please correlate clinically. Radiation Dose CTDIVOL = (mGy): DLP = 1218.43 (mGy-cm)
[2020-02-29] MEDS: iodixanol 320 mg/mL 100mL Btl IV (19:31)
[2020-02-29 19:37] LABS: Basophils # 0.1 10^3/uL (0.0-0.1); Basophils % 0.3 %; Eosinophils # 0.1 10^3/uL (0.0-0.8); Eosinophils % 0.5 %; Hematocrit 42.6 % (42.0-52.0); Hemoglobin 14.3 g/dL (11.7-16.6); Lymphocytes # 1.1 10^3/uL (0.8-4.8); Lymphocytes % 7.2 %; Mean Corpuscular HGB Conc 33.6 g/dL (30.0-36.0); Mean Corpuscular Hemoglobin 31.2 pg (28.0-34.0); Mean Platelet Volume 10.3 fL (7.4-10.4); Monocytes # 0.6 10^3/uL (0.2-0.9); Neutrophils # 12.8 10^3/uL (1.8-7.7); Neutrophils % 87.1 %; Nucleated Red Blood Cells % 0 %; Platelet Count 348 10^3/cmm (130-400); Red Blood Count 4.58 10^6/uL (4.1-5.3); Red Cell Distribution Width 12.2 % (12.1-15.1); White Blood Count 14.6 10^3/uL (4.0-10.0)
[2020-02-29 20:03] LABS: Alanine Aminotransferase 27 U/L (0-41); Albumin Level 3.7 g/dL (3.5-5.2); Alkaline Phosphatase 102 IU/L (40-130); Anion Gap 15.5 (5-19); Aspartate Amino Transferase 27 U/L (0-40); Blood Urea Nitrogen 19 mg/dL (8-23); Calcium 9.7 mg/dL (8.5-10.5); Carbon Dioxide 22 mmol/L (22-29); Chloride 108 mmol/L (98-107); Globulin 3.5 g/dL (1.3-4.6); Glomerular Filtration Rate 68.3 mL/min (90-130); Glucose 134 mg/dL (65-115); Osmolality Calculated 290 mOsm/kg (285-295); Potassium 4.5 mmol/L (3.5-5.1); Sodium 141 mmol/L (136-145); Total Bilirubin 0.2 mg/dL (0.15-1.2); Total Protein 7.2 g/dL (6.6-8.7)
[2020-02-29 20:37] LABS: Troponin(5th) Baseline 14 ng/mL (0-15)
--- NOTE | 2020-02-29 20:47 | ECG_ITS ---
Measurements Intervals [place] Rate: 89 P: 10 NH: 162 QRS: -27 QRSD: 113 T: 120 QT: 351 QTc: 429 SINUS RHYTHM MODERATE VOLTAGE CRITERIA FOR LVH, CONSIDER NORMAL VARIANT INFERIOR MYOCARDIAL INFARCTION , PROBABLY OLD MODERATE T-WAVE ABNORMALITY, CONSIDER LATERAL ISCHEMIA Compared to ECG 02/24/2020 09:49:04 T-wave abnormality now present Possible ischemia now present Myocardial infarct finding still present Electronically Signed On 03-01-2020 15:27:50 CDT by Deja Szymanski M.D. [email or web address]
[2020-02-29 20:48] VITALS: BP 107/70; PULSE 87; RESP 18; O2SAT 98
[2020-02-29 21:32] LABS: Protein Urine 1+ (Negative); Specific Gravity, Urine 1.005 (1.005-1.030); Urine Appearance Clear (CLEAR); Urine Color Yellow (Yellow); pH Urine 7 (5-7)
[2020-02-29 21:33] LABS: Add Urine Microscopic? YES; Bacteria Urine TRACE; Bilirubin Urine Neg (NEGATIVE); Blood Urine 2+ (Negative); Glucose Urine UA Norm (Normal); Ketones Urine Negative (Negative); Leukocyte Esterase Urine Negative (Negative); Nitrate Urine Negative (Negative); RBC Urine 0-4 /hpf (0-2); Squamous Epithelial Cell Urine RARE (0-5); Transitional Epi Cells Urine RARE /hpf; Urobilinogen Urine 1 mg/dL (Negative); WBC Urine RARE /hpf (0-5)
[2020-02-29 21:42] LABS: Troponin 5 2HR 12.29 ng/mL (0-15)
[2020-02-29 21:44] LABS: Troponin 5 2HR Delta -1.71 ABS# (0-10)
[2020-02-29 21:52] VITALS: BP 108/69; PULSE 92; RESP 20; O2SAT 96
== END 2020-02-29 21:54 | disposition home or self-care (01) ==
PROVIDERS: Emergency Provider Nurse Practitioner Family
DX: R07.89 Other chest pain (principal); Z79.82 Long term (current) use of aspirin; I11.0 Hypertensive heart disease with heart failure; I50.9 Heart failure, unspecified; E78.5 Hyperlipidemia, unspecified; Z95.810 Presence of automatic (implantable) cardiac defibrillator; Z95.1 Presence of aortocoronary bypass graft
CPT/HCPCS: 12345; 36415; 71045; 71275; 80053; 81001; 84484; 85025; 93005; 99283; Q9967

== ENCOUNTER → 2020-03-20 10:39 | Outpatient (BNVA) | payer MEDICARE, OTHER, SELFPAY | PROVIDERS: Visit Provider Emergency Medicine | DX: E78.2 Mixed hyperlipidemia (principal); I50.22 Chronic systolic (congestive) heart failure; R10.9 Unspecified abdominal pain; Z90.49 Acquired absence of other specified parts of digestive tract; R11.0 Nausea; R50.9 Fever, unspecified | CPT/HCPCS: 80053; 80061; 83880; 85025 ==

== ENCOUNTER 2020-03-26 12:12 | Emergency (ER) | payer MEDICARE, OTHER, SELFPAY ==
[2020-03-26] VITALS (9 sets, daily range): BP systolic 72–112; BP diastolic 40–61; PULSE 71–103; RESP 14–22; TEMP 36.7; O2SAT 18–97; BMI 28.8
--- NOTE | 2020-03-26 13:11 | CT_ITS ---
WS: [id number] CT abdomen pelvis w con* [id number] REASON FOR EXAM: abdominal pain s/p appendectomy IV CONTRAST ADMINISTERED: Omnipaque 300, 95 mL TOTAL EXAM DLP: 792.[address] scans at [facility] use at least one of these dose optimization techniques: automat ed exposure control; mA and/or kV adjustment per patient size (includes targeted exams where dose is matched to clinical indication); or iterative reconstruction. FINDINGS: Lower lung shows scattered benign nodules centimeters previous coronary bypass changes. Along the superior surface of the right lobe of the liver is a hypodense lesion with edema surroundin g the lesion there is a small amount of air in the surface of the lesion and abscesses to be excluded . The gallbladder wasn't adjacent to this area appeared to be normal. The pancreas was normal. The spleen was normal The stomach showed no abnormalities. Right adrenal gland shows a hypodense mass measures 1.65 cm. The left side was normal. The right and left kidneys are normal. There is again noted small calculi in both kidneys. The appendix is enlarged but shows no Interval inflammatory changes. There is a calcified area in the region of the appendix. The colon showed no definite lesions. The bladder was normal. The prostate measured 4.65 cm. IMPRESSION: A prominent mass is seen over the right lobe of the liver appears to be predominantly along the surfa ce the liver most likely an abscess although a neoplasm could produce similar findings. The appendix shows a little calcified density and is slightly prominent but no periappendiceal fluid is seen. Note the abscess changes in the liver were not seen on previous exam of February 24, 2020.
--- NOTE | 2020-03-26 13:13 | ED_ITS ---
HPI - General Adult General: Chief complaint: General Medical Stated complaint: sent by dr andersen Time Seen by Provider: 03/26/20 12:53 Source: patient Mode of arrival: ambulatory Limitations: no limitations History of Present Illness: HPI narrative: Patient is a 59-year-old gentleman who had an appendectomy about a month ago and has not gotten over his illness since then. He has been feeling increasing fatigue, low-grade fevers, nausea which started yesterday, no vomiting, no change in his bowel habits. He was apparently also recently diagnosed with congestive heart failure and has been on Lasix for a few days. His main issues today right-sided abdominal pain, low-grade fever, extreme fatigue. He has had several tick bites. MD complaint: abdominal pain Associated symptoms: Reports nausea; Deny dyspnea, headache(s), rash, palpitations or vomiting Review of Systems General: Reports: 10 or more systems reviewed and unremarkable except in HPI and below Const: Reports: fever(s) and fatigue; Denies: chills or body aches Eyes: Denies: change in vision or blurry vision ENMT: Denies: throat pain, enlarged tonsils, odynophagia, hoarseness, mouth pain or swelling of lips/tongue Card: Denies: palpitations, irregular heart rhythm, edema or swelling of feet/ankles Resp: Denies: dyspnea, productive cough or non-productive cough GI: Reports: abdominal pain and nausea; Denies: vomiting : Denies: flank pain, dysuria, urinary frequency, urinary urgency or urinary hesitancy Musc: Denies: neck pain, back pain or extremity swelling Skin/Breast: Denies: rash, pruritus or erythema Neuro: Denies: headache(s), numbness in extremities or weakness in extremities Endo: Denies: polyuria, polydipsia or tired all the time PFSH ED PFSH: Medical History (Updated 03/26/20 @ 16:31 by Jade Bingham MD, [facility] – [place], [place]) ASHD (arteriosclerotic heart disease) Bilateral carotid artery stenosis Bronchitis after surgery Cardiomyopathy CHF (congestive heart failure) GERD (gastroesophageal reflux disease) HTN (hypertension), benign Hyperlipidemia ICD (implantable cardioverter-defibrillator) in place Surgical History H/O right wrist surgery History of ankle surgery History of CEA (carotid endarterectomy) History of mitral valve repair Hx of CABG S/P laparoscopic appendectomy (~02/24/20) Family History Other CAD (coronary artery disease) Hypertension Social History Smoking and tobacco status: never smoked Alcohol intake: never Physical Exam Const: COMMON NORMALS: no acute distress, average body habitus, patient oriented x3, no limitations, healthy appearing, alert and well nourished HENMT: COMMON NORMALS: normocephalic, atraumatic and moist oral mucous membranes HEAD & SCALP: normocephalic and atraumatic Eye: COMMON NORMALS: Equal, round and reactive pupils present, EOMs intact bilaterally, conjunctivae normal and no scleral icterus CONJUNCTIVA: Yes conjunctivae normal PUPIL: Yes Equal, round and reactive pupils present Neck/C-Spine: COMMON NORMALS: full ROM, supple, no meningeal signs, no JVD and No carotid bruits Chest: COMMONS NORMALS: normal inspection of the chest and normal palpation of entire chest wall Resp: COMMON NORMALS: normal respiratory effort, No retractions, No use of accessory muscles, clear to auscultation bilaterally and percussion normal AUSCULTATION: clear to auscultation bilaterally PERCUSSION: percussion normal Cardio: COMMON NORMALS: no JVD, regular rate, regular rhythm, S1 normal heart sound present, S2 normal heart sound present, No gallops present (Cardio), No clicks present (Cardio), No murmurs present (Cardio), No rub (Cardio) and Peripheral pulses 2+ throughout RATE: regular rate RHYTHM: regular rhythm HEART SOUNDS: S1 normal heart sound present and S2 normal heart sound present PERIPHERAL PULSES: Peripheral pulses 2+ throughout GI: COMMON NORMALS: Normal to inspection, nondistended, normoactive bowel sounds present, Soft to palpation, non-tender, No hepatosplenomegaly present, no masses and no bruits PALPATION: Yes Soft to palpation and Yes No hepatosplenomegaly present : COMMON NORMALS: Yes no CVA tenderness BLADDER/KIDNEY EXAM: Yes no CVA tenderness Back/Pelvis: COMMON NORMALS: no CVA tenderness Extremity: COMMON NORMALS: normal to inspection, full ROM, capillary refill normal, no calf tenderness and no pedal edema Neuro: COMMON NORMALS: patient oriented x3 SENSORIUM/ORIENTATION: Yes alert MENINGEAL SIGNS: Yes no meningeal signs Skin: COMMON NORMALS: no rashes or lesions noted, no wounds, turgor normal, no jaundice, no petechiae and no mottling GENERAL SKIN EXAM: no rashes or lesions noted and turgor normal Course ED course: 14:25 - call Dr. Cowan, surgeon station gateman for this patient with a liver abscess. Since he is within the 90 day global surgery period, he asked me to consult the surgeon who performed the appendectomy 15:02 - Called Dr. Michelle who performed the first surgery. Will admit but needs IR for drainage. Since we don't have IR, she should be transferred. 15:15 - spoke to the patient about y discussions with the surgeons. He would prefer to be transferred to [facility] in [place] since he has had cardiac evaluation done there in the past. 15:29 - contact [facility] Transfer center. Will call back when they have a doctor. Consultations: Consultation #1: Dr. Lua, hospitalist at [facility] in [place]. Since the patient is hypotensive and has acute kidney injury it would be best to transfer the patient to the emergency department. Time: 16:16 Consultation #2: Dr. Butt, ED physician at [facility]. She kindly accepted the patient to her service. Time: 16:25 Vital Signs: Vital signs: Vital Signs Temperature 98.0 F 03/26/20 12:28 Pulse Rate 93 03/26/20 17:30 Respiratory Rate 21 H 03/26/20 17:30 Blood Pressure 104/61 03/26/20 17:30 Pulse Oximetry 95 03/26/20 17:30 MDM - General Adult MDM Narrative: Medical decision making narrative: 59-year-old male who has a liver abscess likely secondary to an appendectomy he had about a month ago. Patient was hypotensive here requiring fluid resuscitation and he also had acute kidney injury. Because of these he is transferred to the emergency department at [facility] as he will need interventional radiology to drain the abscess. We do not have interventional radiology at this point in this facility. Medical Records: Attestation: I reviewed the patient's medical records. Lab Data: Attestation: I reviewed the patient's lab results. Labs: Lab Results 03/26/20 03/26/20 03/26/20 Range/Units 13:30 13:30 13:30 WBC 16.5 H (4.0-10.0) 10^3/ uL RBC 3.96 L (4.1-5.3) 10^6/u L Hgb 11.8 (11.7-16.6) g/dL Hct 36.7 L (42.0-52.0) % MCV 92.7 (80-94) fL MCH 29.8 (28.0-34.0) pg MCHC 32.2 (30.0-36.0) g/dL RDW 12.6 (12.1-15.1) % Plt Count 431 H (130-400) 10^3/c mm MPV 10.1 (7.4-10.4) fL Neut % (Auto) 83.5 % Lymph % (Auto) 7.3 % [place] % (Auto) 8.2 % Eos % (Auto) 0.1 % Baso % (Auto) 0.2 % Neut # (Auto) 13.8 H (1.8-7.7) 10^3/u L Lymph # (Auto) 1.2 (0.8-4.8) 10^3/u L [place] # (Auto) 1.4 H (0.2-0.9) 10^3/u L Eos # (Auto) 0.0 (0.0-0.8) 10^3/u L Baso # (Auto) 0.0 (0.0-0.1) 10^3/u L Nucleated RBC % (a uto) 0 % Nucleated RBCs # 0.0 /100WBC Sodium 132 L (136-145) mmol/L Potassium 4.6 (3.5-5.1) mmol/L Chloride 98 (98-107) mmol/L Carbon Dioxide 21 L (22-29) mmol/L Anion Gap 17.6 (5-19) BUN 19 (8-23) mg/dL Creatinine 2.5 H (0.7-1.2) mg/dL GFR Calculation 26.5 L (90-130) mL/min Glucose 120 H (65-115) mg/dL Calculated Osmolal ity 272 L (285-295) mOsm/k g Lactate 1.4 (0.5-2.2) mmol/L Calcium 9.4 (8.5-10.5) mg/dL Total Bilirubin 0.3 (0.15-1.2) mg/dL AST 21 (0-40) U/L ALT 25 (0-41) U/L Alkaline Phosphata se 93 (40-130) IU/L C-Reactive Protein 157.2 H (0.0-4.9) mg/L NT-Pro-B Natriuret Pep 692 H (0-125) pg/mL Total Protein 7.1 (6.6-8.7) g/dL Albumin 2.9 L (3.5-5.2) g/dL Globulin 4.2 (1.3-4.6) g/dL Lipase 37 (13-60) U/L Urine Color (Yellow) Urine Appearance (CLEAR) Urine pH (5-7) Ur Specific Gravit y (1.005-1.030) Urine Protein (Negative) Urine Glucose (UA) (Normal) Urine Ketones (Negative) Urine Blood (Negative) Urine Nitrate (Negative) Urine Bilirubin (NEGATIVE) Urine Urobilinogen (Negative) mg/dL Ur Leukocyte Bernadette ase (Negative) Urine RBC (0-2) /hpf Urine WBC (0-5) /hpf Ur Squamous Epith Cells (0-5) Urine Bacteria (NONE) Hyaline Casts Urine Mucus 03/26/20 Range/Units 14:56 WBC (4.0-10.0) 10^3/ uL RBC (4.1-5.3) 10^6/u L Hgb (11.7-16.6) g/dL Hct (42.0-52.0) % MCV (80-94) fL MCH (28.0-34.0) pg MCHC (30.0-36.0) g/dL RDW (12.1-15.1) % Plt Count (130-400) 10^3/c mm MPV (7.4-10.4) fL Neut % (Auto) % Lymph % (Auto) % [place] % (Auto) % Eos % (Auto) % Baso % (Auto) % Neut # (Auto) (1.8-7.7) 10^3/u L Lymph # (Auto) (0.8-4.8) 10^3/u L [place] # (Auto) (0.2-0.9) 10^3/u L Eos # (Auto) (0.0-0.8) 10^3/u L Baso # (Auto) (0.0-0.1) 10^3/u L Nucleated RBC % (a uto) % Nucleated RBCs # /100WBC Sodium (136-145) mmol/L Potassium (3.5-5.1) mmol/L Chloride (98-107) mmol/L Carbon Dioxide (22-29) mmol/L Anion Gap (5-19) BUN (8-23) mg/dL Creatinine (0.7-1.2) mg/dL GFR Calculation (90-130) mL/min Glucose (65-115) mg/dL Calculated Osmolal ity (285-295) mOsm/k g Lactate (0.5-2.2) mmol/L Calcium (8.5-10.5) mg/dL Total Bilirubin (0.15-1.2) mg/dL AST (0-40) U/L ALT (0-41) U/L Alkaline Phosphata se (40-130) IU/L C-Reactive Protein (0.0-4.9) mg/L NT-Pro-B Natriuret Pep (0-125) pg/mL Total Protein (6.6-8.7) g/dL Albumin (3.5-5.2) g/dL Globulin (1.3-4.6) g/dL Lipase (13-60) U/L Urine Color Yellow (Yellow) Urine Appearance Sl cloudy A (CLEAR) Urine pH 5 (5-7) Ur Specific Gravit y 1.015 (1.005-1.030) Urine Protein Neg (Negative) Urine Glucose (UA) Norm (Normal) Urine Ketones Negative (Negative) Urine Blood 3+ H (Negative) Urine Nitrate Negative (Negative) Urine Bilirubin 1+ H (NEGATIVE) Urine Urobilinogen 1 H (Negative) mg/dL Ur Leukocyte Bernadette ase Negative (Negative) Urine RBC 15-25 H (0-2) /hpf Urine WBC 0-4 H (0-5) /hpf Ur Squamous Epith Cells 0-4 H (0-5) Urine Bacteria 1+ H (NONE) Hyaline Casts 0-4 H Urine Mucus 2+ Critical Care Time Critical Care Time: Critical Care Time: Yes Total Critical Care Time: 45 Attestation: This case had a high probability of a clinically significant, sudden, or life threatening deterioration of this patient's condition which required my full and direct attention, intervention and personal management. Discharge Plan Discharge Patient Disposition: Xfer Short-Term Hosp Clinical Impression: Abscess of liver, HAYDEN (acute kidney injury), Acute hypotension Condition: Stable Discharge Orders: Transfer Out of Facility (Order); Ordered 03/26/20 Ordered By: Jade Bingham Discharge Date/Time: 03/26/20 17:56 Coding Level of Care Code ED Balling Machine Operator for Chg Fwd Exam Comprehensive
--- NOTE | 2020-03-26 13:22 | CT_ITS ---
WS: [id number] CT head wo con* [id number] REASON FOR EXAM: headache, blurred vision right eye IV CONTRAST ADMINISTERED: None. TOTAL EXAM DLP: 784.[address] scans at [facility] use at least one of these dose optimization techniques: automat ed exposure control; mA and/or kV adjustment per patient size (includes targeted exams where dose is matched to clinical indication); or iterative reconstruction. FINDINGS: Mata and white matter interfaces are normal. No hemorrhage, mass effect or infarction. The ventricles are normal in size and configuration. No paraventricular lesions. The orbits were normal. The veronica and cerebellum and posterior fossa are normal. The paranasal sinuses are all normal. The temporal cells are normal. CT/CT head wo con* [id number] IMPRESSION: Normal CT of the brain
[2020-03-26] MEDS: sodium chloride 0.9% 1,000 ML 500 ML IV (13:23)
[2020-03-26 13:42] LABS: Basophils % 0.2 %; Eosinophils % 0.1 %; Hematocrit 36.7 % (42.0-52.0); Hemoglobin 11.8 g/dL (11.7-16.6); Lymphocytes # 1.2 10^3/uL (0.8-4.8); Lymphocytes % 7.3 %; Mean Corpuscular HGB Conc 32.2 g/dL (30.0-36.0); Mean Corpuscular Hemoglobin 29.8 pg (28.0-34.0); Mean Corpuscular Volume 92.7 fL (80-94); Mean Platelet Volume 10.1 fL (7.4-10.4); Monocytes # 1.4 10^3/uL (0.2-0.9); Monocytes % 8.2 %; Neutrophils # 13.8 10^3/uL (1.8-7.7); Neutrophils % 83.5 %; Nucleated Red Blood Cells % 0 %; Platelet Count 431 10^3/cmm (130-400); Red Blood Count 3.96 10^6/uL (4.1-5.3); Red Cell Distribution Width 12.6 % (12.1-15.1); White Blood Count 16.5 10^3/uL (4.0-10.0)
[2020-03-26] MEDS: iohexol 300 mg/mL 100 mL Btl IV (14:01)
[2020-03-26 14:04] LABS: Lactate (Lactic Acid level) 1.4 mmol/L (0.5-2.2)
[2020-03-26 14:13] LABS: Alanine Aminotransferase 25 U/L (0-41); Albumin Level 2.9 g/dL (3.5-5.2); Alkaline Phosphatase 93 IU/L (40-130); Anion Gap 17.6 (5-19); Aspartate Amino Transferase 21 U/L (0-40); Blood Urea Nitrogen 19 mg/dL (8-23); Calcium 9.4 mg/dL (8.5-10.5); Carbon Dioxide 21 mmol/L (22-29); Chloride 98 mmol/L (98-107); Globulin 4.2 g/dL (1.3-4.6); Glomerular Filtration Rate 26.5 mL/min (90-130); Glucose 120 mg/dL (65-115); Lipase 37 U/L (13-60); NT Pro B Type Natriuretic Pept 692 pg/mL (0-125); Osmolality Calculated 272 mOsm/kg (285-295); Potassium 4.6 mmol/L (3.5-5.1); Sodium 132 mmol/L (136-145); Total Bilirubin 0.3 mg/dL (0.15-1.2); Total Protein 7.1 g/dL (6.6-8.7)
[2020-03-26 14:34] LABS: C Reactive Protein 157.2 mg/L (0.0-4.9)
[2020-03-26 15:29] LABS: Urine Color Yellow (Yellow); pH Urine 5 (5-7)
[2020-03-26 15:30] LABS: Add Urine Microscopic? YES; Bilirubin Urine 1+ (NEGATIVE); Blood Urine 3+ (Negative); Glucose Urine UA Norm (Normal); Ketones Urine Negative (Negative); Leukocyte Esterase Urine Negative (Negative); Nitrate Urine Negative (Negative); Protein Urine Neg (Negative); Specific Gravity, Urine 1.015 (1.005-1.030); Urobilinogen Urine 1 mg/dL (Negative)
[2020-03-26] MEDS: piperacillin-tazobactam 3.375 GM in sodium chloride 0.9% (plus) 50 ML IV (15:37)
[2020-03-26 15:40] LABS: RBC Urine 15-25 /hpf (0-2)
[2020-03-26 15:41] LABS: Bacteria Urine 1+; Mucus Urine 2+; Squamous Epithelial Cell Urine 0-4 (0-5); WBC Urine 0-4 /hpf (0-5)
[2020-03-26 15:42] LABS: Add Urine Culture? Yes; Hyaline Casts Urine 0-4
[2020-03-27 15:40] LABS: Lyme AB Screen <0.90 index
[2020-03-29 17:15] LABS: RMSF IGG NOT DETECTED; RMSF IGM NOT DETECTED
[2020-03-29 22:01] LABS: E. Chaffeensis AB IGG <1:64; E. Chaffeensis AB IGM <1:20
== END 2020-03-26 17:56 | disposition short-term general hospital (02) ==
PROVIDERS: Emergency Provider Family Medicine
DX: K75.0 Abscess of liver (principal); N17.9 Acute kidney failure, unspecified; I95.9 Hypotension, unspecified; I11.0 Hypertensive heart disease with heart failure; I50.9 Heart failure, unspecified; E78.5 Hyperlipidemia, unspecified
CPT/HCPCS: 12345; 36415; 70450; 74177; 80053; 81001; 83605; 83690; 83880; 85025; 86140; 87086; 96360; 96361; 96365; 99283; 99285; J2543; J7030; Q9967

== ENCOUNTER 2020-04-05 07:57 | Outpatient (CLI) | payer MEDICARE, OTHER, SELFPAY ==
--- NOTE | 2020-04-05 09:30 | CT_ITS ---
WS: [id number] CT ABDOMEN PELVIS TECHNIQUE: Noncontrast CT of the abdomen and pelvis with coronal and sagittal reformatted images. CLINICAL INFORMATION: abdominal pain COMPARISON: March 26, 2020 DLP: 1176.[address] scans at [facility] use at least one of these dose optimization techniques: automat ed exposure control; mA and/or kV adjustment per patient size (includes targeted exams where dose is matched to clinical indication); or iterative reconstruction. FINDINGS: Since the prior examination interval placement of pigtail catheter into the subcapsular liver abscess . This is significantly decreased in size and essentially resolved. Normal-appearing adjacent gallbla dder. No new drainable fluid collections. Noncontrast liver otherwise unremarkable. Normal noncontrast spleen. Normal GE junction. Normal nonco ntrast pancreas. Stable 16 mm right adrenal adenoma. Normal left adrenal gland. Normal caliber abdomi nal aorta. Aortic calcification. Mild sigmoid constipation. No evidence of small or large bowel obstruction. No abdominal lymphadenopa thy. No inguinal lymphadenopathy. Mild spondylitic changes lumbar spine. IMPRESSION: 1. Interval placement of right pigtail catheter into the subcapsular liver abscess which has essenti ally resolved. No new abscess. 2. Otherwise no significant changes from previous. 3. Mild sigmoid constipation. 4. Stable right adrenal adenoma. 5. No other significant findings.
== END 2020-04-05 07:58 | disposition home or self-care (01) ==
LOC: RADWPI 08:03
PROVIDERS: Visit Provider Emergency Medicine
DX: R10.9 Unspecified abdominal pain (principal); Z46.6 Encounter for fitting and adjustment of urinary device; K59.00 Constipation, unspecified; D35.01 Benign neoplasm of right adrenal gland
CPT/HCPCS: 74176

== ENCOUNTER 2020-04-06 10:06 | Outpatient (CLI) | payer MEDICARE, OTHER, SELFPAY ==
[2020-04-06 10:17] LABS: Basophils # 0.1 10^3/uL (0.0-0.1); Basophils % 0.9 %; Eosinophils # 0.2 10^3/uL (0.0-0.8); Eosinophils % 1.9 %; Hematocrit 34.7 % (42.0-52.0); Hemoglobin 10.9 g/dL (11.7-16.6); Lymphocytes % 26.4 %; Mean Corpuscular HGB Conc 31.4 g/dL (30.0-36.0); Mean Corpuscular Hemoglobin 28.8 pg (28.0-34.0); Mean Corpuscular Volume 91.6 fL (80-94); Mean Platelet Volume 10.5 fL (7.4-10.4); Monocytes # 0.5 10^3/uL (0.2-0.9); Neutrophils # 4.8 10^3/uL (1.8-7.7); Neutrophils % 62.5 %; Nucleated Red Blood Cells % 0 %; Platelet Count 334 10^3/cmm (130-400); Red Blood Count 3.79 10^6/uL (4.1-5.3); Red Cell Distribution Width 14.1 % (12.1-15.1); White Blood Count 7.7 10^3/uL (4.0-10.0)
[2020-04-06 10:51] LABS: Alanine Aminotransferase 13 U/L (0-41); Albumin Level 3.3 g/dL (3.5-5.2); Alkaline Phosphatase 73 IU/L (40-130); Blood Urea Nitrogen 12 mg/dL (8-23); Carbon Dioxide 22 mmol/L (22-29); Chloride 106 mmol/L (98-107); Globulin 3.3 g/dL (1.3-4.6); Glomerular Filtration Rate 68.3 mL/min (90-130); Glucose 143 mg/dL (65-115); Osmolality Calculated 285 mOsm/kg (285-295); Sodium 138 mmol/L (136-145); Total Bilirubin 0.2 mg/dL (0.15-1.2); Total Protein 6.6 g/dL (6.6-8.7)
[2020-04-06 11:04] LABS: Aspartate Amino Transferase 20 U/L (0-40)
== END 2020-04-06 10:07 | disposition home or self-care (01) ==
PROVIDERS: Visit Provider Internal Medicine Infectious Disease
DX: K75.0 Abscess of liver (principal)
CPT/HCPCS: 80053; 85025

== ENCOUNTER 2020-04-12 11:16 | Outpatient (CLI) | payer MEDICARE, OTHER, SELFPAY ==
[2020-04-12 11:27] LABS: Basophils # 0.1 10^3/uL (0.0-0.1); Basophils % 0.7 %; Eosinophils # 0.3 10^3/uL (0.0-0.8); Eosinophils % 3.6 %; Hematocrit 36.1 % (42.0-52.0); Hemoglobin 11.5 g/dL (11.7-16.6); Lymphocytes # 2.1 10^3/uL (0.8-4.8); Lymphocytes % 30.6 %; Mean Corpuscular HGB Conc 31.9 g/dL (30.0-36.0); Mean Corpuscular Hemoglobin 28.9 pg (28.0-34.0); Mean Corpuscular Volume 90.7 fL (80-94); Mean Platelet Volume 10.9 fL (7.4-10.4); Monocytes # 0.7 10^3/uL (0.2-0.9); Neutrophils # 3.8 10^3/uL (1.8-7.7); Neutrophils % 54.8 %; Nucleated Red Blood Cells % 0 %; Platelet Count 263 10^3/cmm (130-400); Red Blood Count 3.98 10^6/uL (4.1-5.3); Red Cell Distribution Width 14.1 % (12.1-15.1); White Blood Count 6.9 10^3/uL (4.0-10.0)
[2020-04-12 11:50] LABS: Alanine Aminotransferase 14 U/L (0-41); Albumin Level 3.7 g/dL (3.5-5.2); Alkaline Phosphatase 75 IU/L (40-130); Anion Gap 15.1 (5-19); Aspartate Amino Transferase 21 U/L (0-40); Blood Urea Nitrogen 10 mg/dL (8-23); Calcium 9.2 mg/dL (8.5-10.5); Carbon Dioxide 24 mmol/L (22-29); Chloride 104 mmol/L (98-107); Globulin 3.3 g/dL (1.3-4.6); Glomerular Filtration Rate 98.3 mL/min (90-130); Glucose 87 mg/dL (65-115); Osmolality Calculated 283 mOsm/kg (285-295); Potassium 4.1 mmol/L (3.5-5.1); Sodium 139 mmol/L (136-145); Total Bilirubin 0.2 mg/dL (0.15-1.2)
== END 2020-04-12 11:17 | disposition home or self-care (01) ==
LOC: LAB 11:19
PROVIDERS: Visit Provider Internal Medicine Infectious Disease
DX: K75.0 Abscess of liver (principal)
CPT/HCPCS: 80053; 85025

== ENCOUNTER 2020-04-19 10:31 | Outpatient (CLI) | payer MEDICARE, OTHER, SELFPAY ==
[2020-04-19 10:55] LABS: Basophils # 0.1 10^3/uL (0.0-0.1); Basophils % 0.8 %; Eosinophils # 0.5 10^3/uL (0.0-0.8); Eosinophils % 6.1 %; Hematocrit 39.3 % (42.0-52.0); Hemoglobin 12.8 g/dL (11.7-16.6); Lymphocytes # 2.7 10^3/uL (0.8-4.8); Mean Corpuscular HGB Conc 32.6 g/dL (30.0-36.0); Mean Platelet Volume 11.3 fL (7.4-10.4); Monocytes # 0.6 10^3/uL (0.2-0.9); Monocytes % 8.1 %; Neutrophils # 3.6 10^3/uL (1.8-7.7); Neutrophils % 48.6 %; Nucleated Red Blood Cells % 0 %; Platelet Count 247 10^3/cmm (130-400); Red Blood Count 4.27 10^6/uL (4.1-5.3); Red Cell Distribution Width 14.7 % (12.1-15.1); White Blood Count 7.4 10^3/uL (4.0-10.0)
[2020-04-19 11:08] LABS: Alanine Aminotransferase 20 U/L (0-41); Alkaline Phosphatase 99 IU/L (40-130); Anion Gap 16.1 (5-19); Aspartate Amino Transferase 22 U/L (0-40); Blood Urea Nitrogen 13 mg/dL (8-23); Calcium 9.2 mg/dL (8.5-10.5); Carbon Dioxide 22 mmol/L (22-29); Chloride 102 mmol/L (98-107); Globulin 3.1 g/dL (1.3-4.6); Glomerular Filtration Rate 85.8 mL/min (90-130); Glucose 98 mg/dL (65-115); Osmolality Calculated 278 mOsm/kg (285-295); Potassium 4.1 mmol/L (3.5-5.1); Sodium 136 mmol/L (136-145); Total Bilirubin 0.2 mg/dL (0.15-1.2); Total Protein 7.1 g/dL (6.6-8.7)
== END 2020-04-19 10:32 | disposition home or self-care (01) ==
LOC: LAB 10:34
PROVIDERS: Visit Provider Internal Medicine Infectious Disease
DX: K75.0 Abscess of liver (principal)
CPT/HCPCS: 80053; 85025

== ENCOUNTER 2020-04-25 15:46 | Outpatient (CLI) | payer MEDICARE, OTHER, SELFPAY ==
[2020-04-25 16:47] LABS: Basophils # 0.1 10^3/uL (0.0-0.1); Basophils % 0.9 %; Eosinophils # 0.3 10^3/uL (0.0-0.8); Eosinophils % 4.8 %; Hematocrit 35.8 % (42.0-52.0); Hemoglobin 11.8 g/dL (11.7-16.6); Lymphocytes # 2.1 10^3/uL (0.8-4.8); Lymphocytes % 32.9 %; Mean Corpuscular Hemoglobin 29.9 pg (28.0-34.0); Mean Corpuscular Volume 90.6 fL (80-94); Mean Platelet Volume 10.9 fL (7.4-10.4); Monocytes # 0.7 10^3/uL (0.2-0.9); Monocytes % 10.7 %; Neutrophils # 3.2 10^3/uL (1.8-7.7); Neutrophils % 50.1 %; Nucleated Red Blood Cells % 0 %; Platelet Count 259 10^3/cmm (130-400); Red Blood Count 3.95 10^6/uL (4.1-5.3); Red Cell Distribution Width 14.9 % (12.1-15.1); White Blood Count 6.4 10^3/uL (4.0-10.0)
[2020-04-26 03:21] LABS: Alanine Aminotransferase 17 U/L (0-41); Alkaline Phosphatase 85 IU/L (40-130); Anion Gap 16.8 (5-19); Aspartate Amino Transferase 19 U/L (0-40); Blood Urea Nitrogen 11 mg/dL (8-23); Carbon Dioxide 23 mmol/L (22-29); Chloride 108 mmol/L (98-107); Globulin 3.4 g/dL (1.3-4.6); Glomerular Filtration Rate 61.6 mL/min (90-130); Glucose 88 mg/dL (65-115); Osmolality Calculated 293 mOsm/kg (285-295); Potassium 3.8 mmol/L (3.5-5.1); Sodium 144 mmol/L (136-145); Total Bilirubin 0.2 mg/dL (0.15-1.2); Total Protein 7.4 g/dL (6.6-8.7)
== END 2020-04-25 15:47 | disposition home or self-care (01) ==
LOC: LAB 15:50
PROVIDERS: PCP Family Medicine; Visit Provider Internal Medicine Infectious Disease
DX: K75.0 Abscess of liver (principal)
CPT/HCPCS: 80053; 85025

== ENCOUNTER 2020-05-03 11:23 | Outpatient (CLI) | payer MEDICARE, OTHER, SELFPAY ==
[2020-05-03 13:03] LABS: Basophils # 0.1 10^3/uL (0.0-0.1); Basophils % 1.2 %; Eosinophils # 0.2 10^3/uL (0.0-0.8); Eosinophils % 3.2 %; Hematocrit 38.3 % (42.0-52.0); Hemoglobin 12.5 g/dL (11.7-16.6); Lymphocytes # 1.9 10^3/uL (0.8-4.8); Lymphocytes % 38.4 %; Mean Corpuscular HGB Conc 32.6 g/dL (30.0-36.0); Mean Corpuscular Hemoglobin 29.6 pg (28.0-34.0); Mean Corpuscular Volume 90.5 fL (80-94); Mean Platelet Volume 10.9 fL (7.4-10.4); Monocytes # 0.6 10^3/uL (0.2-0.9); Monocytes % 12.2 %; Neutrophils # 2.25 10^3/uL (1.8-7.7); Neutrophils % 44.8 %; Nucleated Red Blood Cells % 0 %; Platelet Count 221 10^3/cmm (130-400); Red Blood Count 4.23 10^6/uL (4.1-5.3); Red Cell Distribution Width 14.6 % (12.1-15.1)
[2020-05-03 13:17] LABS: Alanine Aminotransferase 15 U/L (0-41); Albumin Level 4.4 g/dL (3.5-5.2); Alkaline Phosphatase 84 IU/L (40-130); Aspartate Amino Transferase 21 U/L (0-40); Blood Urea Nitrogen 9 mg/dL (8-23); Calcium 9.6 mg/dL (8.5-10.5); Carbon Dioxide 24 mmol/L (22-29); Chloride 105 mmol/L (98-107); Globulin 2.9 g/dL (1.3-4.6); Glomerular Filtration Rate 85.8 mL/min (90-130); Glucose 103 mg/dL (65-115); Osmolality Calculated 288 mOsm/kg (285-295); Sodium 141 mmol/L (136-145); Total Bilirubin 0.3 mg/dL (0.15-1.2); Total Protein 7.3 g/dL (6.6-8.7)
[2020-05-03 13:43] LABS: Anion Gap 15.7 (5-19); Potassium 3.7 mmol/L (3.5-5.1)
== END 2020-05-03 11:24 | disposition home or self-care (01) ==
LOC: LAB 11:27
PROVIDERS: PCP Family Medicine; Visit Provider Internal Medicine Infectious Disease
DX: K76.0 Fatty (change of) liver, not elsewhere classified (principal)
CPT/HCPCS: 80053; 85025

== ENCOUNTER 2020-05-10 15:20 | Outpatient (CLI) | payer MEDICARE, OTHER, SELFPAY ==
[2020-05-10 16:01] LABS: Basophils % 0.9 %; Eosinophils # 0.2 10^3/uL (0.0-0.8); Eosinophils % 3.3 %; Hematocrit 37.9 % (42.0-52.0); Hemoglobin 12.2 g/dL (11.7-16.6); Lymphocytes # 1.7 10^3/uL (0.8-4.8); Lymphocytes % 37.6 %; Mean Corpuscular HGB Conc 32.2 g/dL (30.0-36.0); Mean Corpuscular Hemoglobin 29.8 pg (28.0-34.0); Mean Corpuscular Volume 92.4 fL (80-94); Mean Platelet Volume 10.5 fL (7.4-10.4); Monocytes # 0.5 10^3/uL (0.2-0.9); Monocytes % 9.9 %; Neutrophils # 2.19 10^3/uL (1.8-7.7); Neutrophils % 48.1 %; Nucleated Red Blood Cells % 0 %; Platelet Count 202 10^3/cmm (130-400); Red Cell Distribution Width 14.9 % (12.1-15.1); White Blood Count 4.6 10^3/uL (4.0-10.0)
[2020-05-10 16:59] LABS: Alanine Aminotransferase 17 U/L (0-41); Albumin Level 4.2 g/dL (3.5-5.2); Alkaline Phosphatase 87 IU/L (40-130); Anion Gap 15.3 (5-19); Aspartate Amino Transferase 17 U/L (0-40); Blood Urea Nitrogen 12 mg/dL (8-23); Calcium 8.9 mg/dL (8.5-10.5); Carbon Dioxide 25 mmol/L (22-29); Chloride 105 mmol/L (98-107); Globulin 2.7 g/dL (1.3-4.6); Glomerular Filtration Rate 68.1 mL/min (90-130); Glucose 90 mg/dL (65-115); Osmolality Calculated 290 mOsm/kg (285-295); Potassium 3.3 mmol/L (3.5-5.1); Sodium 142 mmol/L (136-145); Total Bilirubin 0.2 mg/dL (0.15-1.2); Total Protein 6.9 g/dL (6.6-8.7)
== END 2020-05-10 15:21 | disposition home or self-care (01) ==
PROVIDERS: PCP Family Medicine; Visit Provider Family Medicine
DX: K75.0 Abscess of liver (principal); I25.5 Ischemic cardiomyopathy
CPT/HCPCS: 80053; 85025

== ENCOUNTER → 2020-07-30 16:11 | Outpatient (BNVA) | payer MEDICARE, OTHER, SELFPAY | PROVIDERS: PCP Family Medicine; Visit Provider Nurse Practitioner Family | DX: M54.9 Dorsalgia, unspecified (principal); Z23 Encounter for immunization; R39.9 Unspecified symptoms and signs involving the genitourinary system | CPT/HCPCS: 81000 ==

== ENCOUNTER → 2020-08-01 11:15 | Outpatient (BNVA) | payer MEDICARE, OTHER, SELFPAY | PROVIDERS: PCP Family Medicine; Visit Provider Internal Medicine Cardiovascular Disease | DX: R06.02 Shortness of breath (principal); R10.9 Unspecified abdominal pain; Z79.01 Long term (current) use of anticoagulants; I50.22 Chronic systolic (congestive) heart failure | CPT/HCPCS: 80048; 85025 ==

== ENCOUNTER 2020-08-04 19:07 | Emergency (ER) | payer MEDICARE, OTHER, SELFPAY ==
[2020-08-04 19:18] VITALS: BP 154/85; PULSE 92; RESP 18; TEMP 36.7; O2SAT 100; BMI 30.4
[2020-08-04 19:23] VITALS: BP 160/78; PULSE 84; RESP 18; O2SAT 97
--- NOTE | 2020-08-04 19:38 | CTR_ITS ---
PROCEDURE INFORMATION: Exam: CT Abdomen And Pelvis Without Contrast Exam date and time: 08/04/2020 7:41 PM Age: 60 years old Clinical indication: Abdominal pain; Prior surgery; Surgery type: Appy. Liver; Patient HX: Left flank pain. History of nephrolithiasis TECHNIQUE: Imaging protocol: Computed tomography of the abdomen and pelvis without contrast. Radiation optimization: All CT scans at this facility use at least one of these dose optimization techniques: automated exposure control; mA and/or kV adjustment per patient size (includes targeted exams where dose is matched to clinical indication); or iterative reconstruction. COMPARISON: CT abdomen pelvis wo con [id number] 04/05/2020 8:16 AM RADIATION DOSE METRICS: Total DLP (mGy-cm): 1626.43 FINDINGS: Lungs: Left lower lobe 4.6 mm pulmonary nodule. Left lower lobe atelectasis versus some interstitial fibrotic change. Liver: Normal. No mass. Gallbladder and bile ducts: Normal. No calcified stones. No ductal dilation. Pancreas: Normal. No ductal dilation. Spleen: Normal. No splenomegaly. Adrenals: Right adrenal 12 mm low-density nodule likely reflects a benign adenoma Kidneys and ureters: Left kidney demonstrates several nonobstructing renal calyceal stones. Stomach and bowel: Constipation. Diverticulosis without diverticulitis. Appendix: No evidence of appendicitis. Intraperitoneal space: Unremarkable. No free air. No significant fluid collection. Vasculature: Unremarkable. No abdominal aortic aneurysm. Lymph nodes: Unremarkable. No enlarged lymph nodes. Urinary bladder: Unremarkable as visualized. Reproductive: Unremarkable as visualized. Bones/joints: Unremarkable. No acute fracture. Soft tissues: Unremarkable. CT/CT kidney stone [id number] IMPRESSION: 1. Negative for acute inflammatory process in the abdomen or pelvis. 2. Left lower lobe 4.6 mm pulmonary nodule. For patients at low risk (minimal or absent history of smoking and of other known risk factors), no routine follow-up is indicated. For patients at high risk (history of smoking or of other known risk factors), consider optional CT Chest at 12 months. (Reference: Richard) 3. Left lower lobe atelectasis versus some interstitial fibrotic change. 4. Left kidney demonstrates several nonobstructing renal calyceal stones. 5. Constipation. 6. Diverticulosis without diverticulitis. 7. Right adrenal 12 mm low-density nodule likely reflects a benign adenoma. REFERENCES: Richard Fam et al. Guidelines for Management of Incidental Pulmonary Nodules Detected on CT Images: From the Fleischner Society 2017. Radiology. 2017;284(1):228-243. Radiation Dose CTDIVOL = (mGy): DLP = 1626.43 (mGy-cm)
[2020-08-04 20:07] VITALS: BP 154/86; PULSE 88; RESP 16; O2SAT 97
--- NOTE | 2020-08-04 20:17 | W.ED.MALEGU ---
HPI - Male Genitourinary General: Chief complaint: Urogenital-Male Stated complaint: thinks he has a stone Time Seen by Provider: 08/04/20 19:26 History of Present Illness: HPI Narrative: This patient is a 60-year-old male who comes in with left flank pain. He reports a history of kidney stones and said this feels like a kidney stone. He said it started last week and he thought that he passed the stone because the pain had resolved. It started up again today and is quite severe. He feels it where he thinks would be right below his kidney and his back. He has had some dark urine but has not noticed any obvious blood and has not had any difficulty urinating. He denies fevers or vomiting. He was seen by his PCP last week and was given an antibiotic to take. He then saw his senior principal process engineer who told him to not take the antibiotic until he had checked his white blood cell count. Blood was drawn but the patient never heard anything about the blood tests and so has not been taking the antibiotic. The patient also wanted me to know that several months ago he was admitted to the hospital with sepsis from an E. coli infection. Complaint: other (Left flank and back pain) Duration: intermittent Location: left flank Quality: aching and sharp Relieving factors: none Exacerbating factors: none Associated symptoms: Deny nausea or vomiting Review of Systems General: Reports: 10 or more systems reviewed and unremarkable except in HPI and below Const: Denies: fever(s), chills, fatigue or malaise Eyes: Denies: change in vision ENMT: Denies: odynophagia Card: Denies: chest pain or swelling of feet/ankles Resp: Denies: dyspnea, productive cough or non-productive cough GI: Denies: abdominal pain, nausea or vomiting : Denies: flank pain Musc: Denies: neck pain Skin/Breast: Denies: rash Neuro: Denies: headache(s), numbness in extremities or weakness in extremities Riley/Lymph: Denies: easy bruising or easy bleeding PFS ED PFSH: Medical History Abdominal pain ASHD (arteriosclerotic heart disease) Asthma Bilateral carotid artery stenosis Bronchitis after surgery Cardiomyopathy CHF (congestive heart failure) Chronic migraine GERD (gastroesophageal reflux disease) HTN (hypertension), benign Hyperlipidemia ICD (implantable cardioverter-defibrillator) in place Patient's ICD was interrogated today. There was no ICD discharges. The pacing function appears to be appropriate. Restless leg syndrome Surgical History H/O right wrist surgery History of ankle surgery History of CEA (carotid endarterectomy) History of mitral valve repair Hx of CABG S/P laparoscopic appendectomy (~02/24/20) Family History Other CAD (coronary artery disease) Hypertension Social History Smoking and tobacco status: never smoked Alcohol intake: never Physical Exam Const: COMMON NORMALS: patient oriented x3, no limitations and alert GENERAL APPEARANCE: cooperative HENMT: HEAD & SCALP: normal to inspection FACE & SINUS: normal facial exam Eye: GENERAL EYE: appearance normal, both eyes and all related structures Neck/C-Spine: COMMON NORMALS: supple, no meningeal signs and no JVD Chest: COMMONS NORMALS: normal inspection of the chest Resp: COMMON NORMALS: normal respiratory effort, No use of accessory muscles and clear to auscultation bilaterally AUSCULTATION: clear to auscultation bilaterally Cardio: COMMON NORMALS: no JVD, regular rate, regular rhythm and No murmurs present (Cardio) RATE: regular rate RHYTHM: regular rhythm GI: COMMON NORMALS: Normal to inspection, nondistended, normoactive bowel sounds present, Soft to palpation and non-tender INSPECTION: Yes normal to inspection AUSCULTATION: Yes normoactive bowel sounds PALPATION: Yes Soft to palpation Back/Pelvis: COMMON NORMALS: thoracic and lumbar spine normal to inspection Extremity: COMMON NORMALS: normal to inspection Neuro: COMMON NORMALS: patient oriented x3, moves all extremities, no focal motor deficits and no sensory deficits noted SENSORIUM/ORIENTATION: Yes alert MENINGEAL SIGNS: Yes no meningeal signs Psych: COMMON NORMALS: mental status grossly normal, cooperative and normal affect Skin: COMMON NORMALS: no rashes or lesions noted and turgor normal GENERAL SKIN EXAM: no rashes or lesions noted and turgor normal Course ED course: Patient with left-sided back and flank pain. He said it feels lower than where his typical kidney stone pain is. This been intermittent. He said he has been taking the Macrobid that was prescribed for him and also took some metronidazole that he had at home left over from his E. coli infection. His urine shows no infection today but of course he has been on antibiotics. CT was done and showed nothing as far as an explanation for his symptoms. I suppose it is possible that he could have some inflammation in the colon that could be causing his pain although there is no diverticulitis on the CT. He could be having some symptoms related to a partially treated UTI. I will have him stop the Macrobid and the metronidazole and I will put him on levofloxacin. He does have some stones in the kidney and I referred him to Dr. Recio for that. He is very concerned about the possibility of an E. coli sepsis and requested that blood cultures be sent so those have been drawn and sent. He did have a pulmonary nodule on his CT however given his history is a non-smoker the recommendation was that it did not require follow-up. He also had a benign-appearing adenoma. He will follow-up with his primary care doctor for further evaluation. Vital Signs: Vital signs: Vital Signs Temperature 98.1 F 08/04/20 19:18 Pulse Rate 86 08/04/20 21:00 Respiratory Rate 18 08/04/20 21:00 Blood Pressure 136/86 08/04/20 21:00 Pulse Oximetry 99 08/04/20 21:00 MDM - Male Lab Data: Labs: Lab Results 08/04/20 08/04/20 08/04/20 Range/Units 20:15 20:15 20:50 WBC 7.8 (4.0-10.0) 10^3/ uL RBC 4.82 (4.1-5.3) 10^6/u L Hgb 14.8 (11.7-16.6) g/dL Hct 44.6 (42.0-52.0) % MCV 92.5 (80-94) fL MCH 30.7 (28.0-34.0) pg MCHC 33.2 (30.0-36.0) g/dL RDW 11.9 L (12.1-15.1) % Plt Count 192 (130-400) 10^3/c mm MPV 9.8 (7.4-10.4) fL Neut % (Auto) 53.7 % Lymph % (Auto) 33.8 % Buchanan % (Auto) 9.8 % Eos % (Auto) 1.5 % Baso % (Auto) 0.6 % Neut # (Auto) 4.17 (1.8-7.7) 10^3/u L Lymph # (Auto) 2.6 (0.8-4.8) 10^3/u L Buchanan # (Auto) 0.8 (0.2-0.9) 10^3/u L Eos # (Auto) 0.1 (0.0-0.8) 10^3/u L Baso # (Auto) 0.1 (0.0-0.1) 10^3/u L Nucleated RBC % (a uto) 0 % Nucleated RBCs # 0.0 /100WBC Sodium 141 (136-145) mmol/L Potassium 4.0 (3.5-5.1) mmol/L Chloride 105 (98-107) mmol/L Carbon Dioxide 25 (22-29) mmol/L Anion Gap 15.0 (5-19) BUN 13 (8-23) mg/dL Creatinine 1.1 (0.7-1.2) mg/dL GFR Calculation 68.1 L (90-130) mL/min Glucose 83 (65-115) mg/dL Calculated Osmolal ity 291 (285-295) mOsm/k g Calcium 9.2 (8.5-10.5) mg/dL Total Bilirubin 0.2 (0.15-1.2) mg/dL AST 20 (0-40) U/L ALT 22 (0-41) U/L Alkaline Phosphata se 93 (40-130) IU/L Total Protein 7.0 (6.6-8.7) g/dL Albumin 4.2 (3.5-5.2) g/dL Globulin 2.8 (1.3-4.6) g/dL Urine Color Yellow (Yellow) Urine Appearance Clear (CLEAR) Urine pH 5 (5-7) Ur Specific Gravit y 1.015 (1.005-1.030) Urine Protein Neg (Negative) Urine Glucose (UA) Norm (Normal) Urine Ketones Negative (Negative) Urine Blood Neg (Negative) Urine Nitrate Negative (Negative) Urine Bilirubin Neg (Negative) Urine Urobilinogen Norm (Negative) mg/dL Ur Leukocyte Bernadette ase Negative (Negative) Discharge Plan Discharge Patient Disposition: Home Clinical Impression: Acute left flank pain Condition: Stable Prescriptions: New levofloxacin 750 mg tablet 750 mg PO DAILY 5 Days Qty: 5 RF: 0 Discontinued metronidazole 500 mg tablet 500 mg PO .Q4 hours RF: 0 nitrofurantoin macrocrystal 100 mg capsule 100 mg PO BID 7 Days Qty: 14 RF: 0 No Action ranolazine [Ranexa] 500 mg tablet extended release 12 hr 500 mg PO BID RF: 0 clopidogrel [Plavix] 75 mg tablet 75 mg PO DAILY RF: 0 rosuvastatin [Crestor] 20 mg tablet 20 mg PO DAILY RF: 0 omeprazole 40 mg capsule,delayed release(DR/EC) 40 mg PO DAILY RF: 0 topiramate 100 mg capsule,extended release 24hr 100 mg PO DAILY RF: 0 fluticasone propion-salmeterol [Advair Diskus] 250-50 mcg/dose blister with device 1 inh INHALATION BID RF: 0 montelukast [Singulair] 10 mg tablet 10 mg PO DAILY RF: 0 aspirin 325 mg tablet 325 mg PO DAILY RF: 0 albuterol sulfate [Ventolin HFA] 90 mcg/actuation HFA aerosol inhaler 2 puff INHALATION Q6H PRN (Reason: Shortness Of Breath) RF: 0 guaifenesin 600 mg tablet extended release 12hr 600 mg PO Q12H Qty: 20 RF: 0 ondansetron 4 mg tablet,disintegrating 4 mg PO Q6H PRN (Reason: nausea and vomiting) Qty: 12 RF: 0 omega-3 fatty acids [Fish Oil Concentrate] 1,000 mg capsule 1,000 mg PO TID RF: 0 metoprolol succinate 25 mg tablet extended release 24 hr 25 mg PO DAILY 30 Days Qty: 30 RF: 2 olopatadine [Patanase] 0.6 % spray,non-aerosol 2 spray INTRANASAL BID RF: 0 loratadine [Claritin] 10 mg tablet 10 mg PO DAILY RF: 0 Discharge Orders: Discharge Order (Routine); Ordered 08/04/20 Ordered By: Digna Castano Referrals: Altaf Recio MD [Physician] - 7-10 days Kateryna Alberts MD [Primary Care Provider] - Discharge Diet: Usual diet Discharge Activity: Resume usual activity Patient Instructions: Abdominal Pain (ED) Activity Restrictions/Additional Instructions: The cause of the pain in your side is not clear today. We will change your antibiotics to levofloxacin which will cover urine and also intra-abdominal infections. Blood cultures are pending. We recommend that you follow-up with your primary care doctor and you have also been given a referral to Dr. Recio, urologist. Please return to the emergency room if you feel like you are getting worse in any way. Coding Level of Care Code ED Chief Nurse Executive for Crystal Fwd Exam Comprehensive
[2020-08-04 20:28] LABS: Basophils # 0.1 10^3/uL (0.0-0.1); Basophils % 0.6 %; Eosinophils # 0.1 10^3/uL (0.0-0.8); Eosinophils % 1.5 %; Hematocrit 44.6 % (42.0-52.0); Hemoglobin 14.8 g/dL (11.7-16.6); Lymphocytes # 2.6 10^3/uL (0.8-4.8); Lymphocytes % 33.8 %; Mean Corpuscular HGB Conc 33.2 g/dL (30.0-36.0); Mean Corpuscular Hemoglobin 30.7 pg (28.0-34.0); Mean Corpuscular Volume 92.5 fL (80-94); Mean Platelet Volume 9.8 fL (7.4-10.4); Monocytes # 0.8 10^3/uL (0.2-0.9); Monocytes % 9.8 %; Neutrophils # 4.17 10^3/uL (1.8-7.7); Neutrophils % 53.7 %; Nucleated Red Blood Cells % 0 %; Platelet Count 192 10^3/cmm (130-400); Red Blood Count 4.82 10^6/uL (4.1-5.3); Red Cell Distribution Width 11.9 % (12.1-15.1); White Blood Count 7.8 10^3/uL (4.0-10.0)
[2020-08-04 20:50] LABS: Alanine Aminotransferase 22 U/L (0-41); Albumin Level 4.2 g/dL (3.5-5.2); Alkaline Phosphatase 93 IU/L (40-130); Aspartate Amino Transferase 20 U/L (0-40); Blood Urea Nitrogen 13 mg/dL (8-23); Calcium 9.2 mg/dL (8.5-10.5); Carbon Dioxide 25 mmol/L (22-29); Chloride 105 mmol/L (98-107); Globulin 2.8 g/dL (1.3-4.6); Glomerular Filtration Rate 68.1 mL/min (90-130); Glucose 83 mg/dL (65-115); Osmolality Calculated 291 mOsm/kg (285-295); Sodium 141 mmol/L (136-145); Total Bilirubin 0.2 mg/dL (0.15-1.2)
[2020-08-04] MEDS: ondansetron 2 mg/ML SDV 2 mL 4 MG IVP (20:57)
[2020-08-04] MEDS: morphine 4 mg/mL SDV 1 mL IVP (20:57)
[2020-08-04] MEDS: ketorolac 30 mg/mL INJ 15 MG IVP (20:58)
[2020-08-04 21:00] VITALS: BP 136/86; PULSE 86; RESP 18; O2SAT 99
[2020-08-04 21:00] LABS: Add Urine Microscopic? NO
[2020-08-04 21:14] LABS: Bilirubin Urine Neg (Negative); Blood Urine Neg (Negative); Glucose Urine UA Norm (Normal); Ketones Urine Negative (Negative); Leukocyte Esterase Urine Negative (Negative); Nitrate Urine Negative (Negative); Protein Urine Neg (Negative); Specific Gravity, Urine 1.015 (1.005-1.030); Urine Appearance Clear (CLEAR); Urine Color Yellow (Yellow); Urobilinogen Urine Norm (Negative); pH Urine 5 (5-7)
[2020-08-04 22:42] VITALS: BP 132/70; PULSE 80; RESP 16; TEMP 36.6; O2SAT 96
--- NOTE | 2020-08-07 10:23 | DCPLANNER ---
customer technical services manager had message to schedule a follow up appointment for patient with Dr. Recio. customer technical services manager called the office of Dr. Recio, spoke with Leanna, gave clinic patients information. Case manage was told that patients information would be printed and reviewed. Clinic will call patient with appointment information.
--- NOTE | 2020-08-09 08:35 | DCPLANNER ---
Patient has a follow up appointment scheduled for Wednesday, August 14, 2020 at 3:[address] Recio. Clinic will call patient with appointment information.
--- NOTE | 2020-08-16 15:55 | DCPLANNER ---
Patient had a follow up appointment scheduled for 08.14.[address] Recio - patient did attend appointment.
== END 2020-08-04 22:40 | disposition home or self-care (01) ==
PROVIDERS: Emergency Provider Emergency Medicine; PCP Family Medicine
DX: R10.9 Unspecified abdominal pain (principal); Z79.02 Long term (current) use of antithrombotics/antiplatelets; Z79.82 Long term (current) use of aspirin; I11.0 Hypertensive heart disease with heart failure; I50.9 Heart failure, unspecified; E78.5 Hyperlipidemia, unspecified; Z95.1 Presence of aortocoronary bypass graft
CPT/HCPCS: 12345; 36415; 74176; 80053; 81003; 85025; 87040; 96374; 96375; 99283; J1885; J2270; J2405

== ENCOUNTER 2020-08-14 14:20 | Outpatient (CLI) | payer MEDICARE, OTHER, SELFPAY ==
--- NOTE | 2020-08-14 14:30 | XRR_ITS ---
PROCEDURE INFORMATION: Exam: XR Abdomen, 1 View Exam date and time: 08/14/2020 2:36 PM Age: 60 years old Clinical indication: Condition or disease; Kidney or ureter condition; Calculus (stone) in kidney; Prior surgery; Surgery type: Appy, drain; Additional info: Renal stones TECHNIQUE: Imaging protocol: XR of the abdomen. Views: Frontal supine view of the abdomen. 1 View. COMPARISON: CT kidney stone [id number] 08/04/2020 7:59 PM FINDINGS: Gastrointestinal tract: Normal. No bowel dilation. Organs: Faint densities are seen in the projection of the left kidney consistent with kidney stones . These findings were present on prior CT examination of the abdomen and pelvis Bones/joints: There is osteoarthritis with sclerosis in the lower lumbar spine XR/XR KUB [id number] IMPRESSION: 1. No acute GI abnormality. 2. Multiple small renal stones left kidney 3. 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
== END 2020-08-14 14:21 | disposition home or self-care (01) ==
LOC: RAD 14:24
PROVIDERS: PCP Family Medicine; Visit Provider Nurse Practitioner Family
DX: N20.0 Calculus of kidney (principal); M47.816 Spondylosis without myelopathy or radiculopathy, lumbar region
CPT/HCPCS: 74018; 81003

== ENCOUNTER 2020-09-02 08:59 | Outpatient (CLI) | payer MEDICARE, OTHER, SELFPAY ==
--- NOTE | 2020-09-02 08:45 | USCV_ITS ---
Yovana James Age: 60 Gender: M : 1960 Exam Date: 09/02/2020 09:08 Ordering Phys: Mina Santo MD (Andy) ([email or web address] [place] [facility]) Technologist: Akiko Saeed Exam Location: [facility] [place] Indication: STENOSIS Risk Factors: known lt cca occlusion Previous Vascular Surgery: Right Brachial BP: / Left Brachial BP: / Right Left Velocity (cm/s) Spectral Plaque Velocity (cm/s) Spectral Plaque Syst/Diast Broadening Syst/Diast Broadening 82.70/ 24.30 Prox CCA / 110.30/30.90 Mid CCA / 126.80/36.40 Distal CCA / 144.10/58.40 Prox ICA / 133.20/49.30 Mid ICA / 94.60/ 43.60 Distal ICA / 103.60 ECA 1.31 ICA/CCA Antegrade Vertebral 43.70/ 16.50 cm/s / cm/s Tri Subclavian 35.40 CONCLUSIONS Right ICA stenosis 50-69%. Mild atheromatous plaque right carotid bulb/ICA. Normal antegrade Doppler flow noted in the right vertebral artery. Abilio Wyman MD (Electronically Signed) Final Date: 02 September 2020 17:06 S
== END 2020-09-02 09:00 | disposition home or self-care (01) ==
PROVIDERS: PCP Family Medicine; Visit Provider Thoracic Surgery (Cardiothoracic Vascular Surgery)
DX: I65.21 Occlusion and stenosis of right carotid artery (principal)
CPT/HCPCS: 93880

== ENCOUNTER → 2020-09-25 13:28 | Outpatient (BNVA) | payer MEDICARE, OTHER, SELFPAY | PROVIDERS: PCP Family Medicine; Visit Provider Urology | DX: R35.1 Nocturia (principal); R39.9 Unspecified symptoms and signs involving the genitourinary system; N20.0 Calculus of kidney | CPT/HCPCS: 81003 ==

== ENCOUNTER → 2020-09-27 15:41 | Outpatient (BNVA) | payer MEDICARE, OTHER, SELFPAY | PROVIDERS: PCP Family Medicine; Referring Provider Surgery; Visit Provider Surgery | DX: Z20.828 Contact with and (suspected) exposure to other viral communicable diseases (principal); Z12.11 Encounter for screening for malignant neoplasm of colon | CPT/HCPCS: 87635 ==

== ENCOUNTER → 2020-10-04 09:19 | Outpatient (BNVA) | payer MEDICARE, OTHER, SELFPAY | PROVIDERS: PCP Family Medicine; Visit Provider Surgery | DX: Z12.11 Encounter for screening for malignant neoplasm of colon (principal) | CPT/HCPCS: 87635 ==

== ENCOUNTER 2020-10-10 10:37 | Day surgery (SDC) | payer MEDICARE, OTHER, SELFPAY ==
[2020-10-08 10:26] VITALS: BMI 29.6
--- NOTE | 2020-10-10 10:59 | P.HP_ITS ---
Same Day Surgery H&P Indication for Procedure/HPI DATE OF PROCEDURE: October 10, 2020 CHIEF COMPLAINT/INDICATIONFOR SURGICAL PROCEDURE: screening PREOP DIAGNOSIS: screening colonoscopy PLANNED PROCEDRUE: Operation Date: 10/10/20 11:30 Proposed Procedures p Colonoscopy 80048 z12.11(Not Applicable) - Isaiah Michelle MD Medications/Allergies* Home Medications Medication Instructions Recorded Confirmed Type albuterol sulfate 90 mcg/actuation 2 puff INHALATION Q6H PRN 02/19/20 10/08/20 History aerosol inhaler aspirin 325 mg tablet 325 mg PO DAILY 02/19/20 10/08/20 History clopidogrel 75 mg tablet 75 mg PO DAILY 02/19/20 10/08/20 History fluticasone 250 mcg-salmeterol 50 1 inh INHALATION BID 02/19/20 10/08/20 History mcg/dose blistr powdr for inhalation montelukast 10 mg tablet 10 mg PO DAILY 02/19/20 10/08/20 History omeprazole 40 mg capsule,delayed 40 mg PO DAILY 02/19/20 10/08/20 History release ranolazine 500 mg tablet,extended 500 mg PO BID 02/19/20 10/08/20 History release,12 hr rosuvastatin 20 mg tablet 20 mg PO DAILY 02/19/20 10/08/20 History topiramate 100 mg capsule,extended 100 mg PO DAILY 02/19/20 10/08/20 History release 24 hr omega-3 fatty acids 1,000 mg 1,000 mg PO TID cap 04/03/20 10/08/20 History capsule loratadine 10 mg tablet 10 mg PO DAILY 07/30/20 10/08/20 History olopatadine 0.6 % nasal spray 2 spray INTRANASAL BID 07/30/20 10/08/20 History Allergies/Adverse Reactions Allergy/AdvReac Type Severity Reaction Status Date / Time No Known Allergies Allergy Verified 10/10/20 10:53 Pertinent History/Comorbid Conditions* Medical History (Updated 09/25/20 @ 14:10 by Cristal Renner APRN) Abdominal pain ASHD (arteriosclerotic heart disease) Asthma Bilateral carotid artery stenosis Bilateral renal stones Bronchitis after surgery Cardiomyopathy CHF (congestive heart failure) Chronic migraine GERD (gastroesophageal reflux disease) HTN (hypertension), benign Hyperlipidemia ICD (implantable cardioverter-defibrillator) in place Patient's ICD was interrogated today. There was no ICD discharges. The pacing function appears to be appropriate. Lower urinary tract symptoms Nocturia Restless leg syndrome Surgical History (Updated 08/14/20 @ 16:36 by Cristal Renner APRN) H/O right wrist surgery History of ankle surgery History of CEA (carotid endarterectomy) History of mitral valve repair Hx of CABG S/P extracorporeal shock wave therapy S/P laparoscopic appendectomy (~02/24/20) Family History (Updated 08/20/20 @ 15:25 by ADRIENNE Weathers) CAD (coronary artery disease) Hypertension Denies family history of Anesthesia complication Bleeding disorder Social History Smoking and tobacco status: never smoked Alcohol intake: never Marital status: Current occupational status: retired Pertinent Exam Findings alert, oriented x 3 and regular rate & rhythm Recommendations Surgery/Procedure today Coding Level of Care Code Acute Operations Project Manager for Crystal Taylor
[2020-10-10 11:10] VITALS: BP 111/76; PULSE 80; RESP 18; TEMP 36.6; O2SAT 97
--- NOTE | 2020-10-10 11:12 | ANES.PREANE2 ---
Pre-Anesthetic Assessment Pre-Anesthetic Assessment: Height/Weight: Height 1.73 m Weight 88.451 kg Temp Pulse Resp BP Pulse Ox 97.9 F 80 18 111/76 97 10/10/20 11:10 10/10/20 11:10 10/10/20 11:10 10/10/20 11:10 10/10/20 11:10 Preop Diagnosis: screening colonoscopy Proposed Procedure: Operation Date: 10/10/20 11:30 Proposed Procedures p Colonoscopy 73591 z12.11(Not Applicable) - Isaiah Michelle MD Was Beta Luis Alfredo taken within 24 hours: Yes Last intake: Intake Last Liquid Date 10/10/20 Last Liquid Time 03:00 Last Solid Date 10/08/20 Last Solid Time 20:00 Social: Social History: No alcohol and No tobacco Exam: Pre-Anes Outpt Exam: alert, oriented x 3, clear to auscultation bilaterally and regular rate & rhythm Airway: Submandibular: WNL Cervical ROM: WNL MP: 2 Dentition: Chipped Pulmonary: Pulmonary: None reported CV/HEM: CV/HEM: Arrythmia, CAD and MT Comments: Defibrillator Placed after CABG/MVRpr : : Chronic renal Insufficiency Hepatic: Hepatic: None reported GI: GI: GERD Metabolic: Metabolic: Hyperlipidemia Musc/skel: Musc/skel: None reported Neuropsych: Neuropsych: None reported Anesthetic Plan: ASA status: 3 Anesthesia: MAC PFSH Anesthesia PFSH: Medical History Abdominal pain ASHD (arteriosclerotic heart disease) Asthma Bilateral carotid artery stenosis Bilateral renal stones Bronchitis after surgery Cardiomyopathy CHF (congestive heart failure) Chronic migraine GERD (gastroesophageal reflux disease) HTN (hypertension), benign Hyperlipidemia ICD (implantable cardioverter-defibrillator) in place Patient's ICD was interrogated today. There was no ICD discharges. The pacing function appears to be appropriate. Lower urinary tract symptoms Nocturia Restless leg syndrome Surgical History H/O right wrist surgery History of ankle surgery History of CEA (carotid endarterectomy) History of mitral valve repair Hx of CABG S/P extracorporeal shock wave therapy S/P laparoscopic appendectomy (~02/24/20) Family History Other CAD (coronary artery disease) Hypertension Denies family history of Anesthesia complication Bleeding disorder Social History Smoking and tobacco status: never smoked Alcohol intake: never Marital status: Current occupational status: retired Data Anesthesia Cardiac Studies: No Data to Display
[2020-10-10] MEDS: sodium chloride 0.9% 1,000 ML 30 ML IV (11:36)
[2020-10-10 12:24] VITALS: BP 151/91; PULSE 74; RESP 16; TEMP 36.4; O2SAT 100
--- NOTE | 2020-10-10 16:30 | ANE.PACU2 ---
Inpatient post-anesthesia follow up: Airway intact: Yes Vital signs: Temperature 97.6 F Pulse Rate 74 Respiratory Rate 16 Blood Pressure 151/91 Pulse Oximetry 100 Oxygen Delivery Me thod Room Air Oxygen Flow Rate Fraction of Inspir ed Oxygen Hydration adequate: Yes Nausea and vomiting: No Pain level: 2 Mental status: Baseline
== END 2020-10-10 12:56 | disposition home or self-care (01) ==
PROVIDERS: PCP Family Medicine; Visit Provider Surgery
PROC: 0DJD8ZZ Inspection of Lower Intestinal Tract, Via Natural or Artificial Opening Endoscopic (ICD-10-PCS; CPT 45378; principal; 2020-10-10 11:30)
DX: Z12.11 Encounter for screening for malignant neoplasm of colon (principal); K64.8 Other hemorrhoids; Z79.82 Long term (current) use of aspirin; I11.0 Hypertensive heart disease with heart failure; I50.9 Heart failure, unspecified; J45.909 Unspecified asthma, uncomplicated; K21.9 Gastro-esophageal reflux disease without esophagitis; E78.5 Hyperlipidemia, unspecified; Z95.1 Presence of aortocoronary bypass graft; Z82.49 Family history of ischemic heart disease and other diseases of the circulatory system; I25.2 Old myocardial infarction
CPT/HCPCS: 12345; G0121; J7030

== ENCOUNTER → 2020-11-14 10:54 | Outpatient (BNVA) | payer MEDICARE, OTHER, SELFPAY | PROVIDERS: PCP Family Medicine; Visit Provider Emergency Medicine | DX: R07.9 Chest pain, unspecified (principal); R05 Cough; R06.02 Shortness of breath; R68.89 Other general symptoms and signs | CPT/HCPCS: 71046; 87400; 87635 ==

== ENCOUNTER 2020-11-18 13:47 | Emergency (ER) | payer MEDICARE, OTHER, SELFPAY ==
[2020-11-18] VITALS (8 sets, daily range): BP systolic 107–117; BP diastolic 63–78; PULSE 73–86; RESP 14–23; TEMP 36.7; O2SAT 93–98; BMI 28.0
--- NOTE | 2020-11-18 14:51 | ECG_ITS ---
[facility] Test Date: 2020-11-18 Pat Name: James Yen Department: Room: Gender: Male Circuit [employer] Judge: : 1960 Requested By: Anand Cramer Order Number: [id number] Reading MD: MIRELLA PERKINS Measurements Intervals [place] Rate: 81 P: 17 AK: 157 QRS: -11 QRSD: 121 T: 151 QT: 360 QTc: 418 Interpretive Statements SINUS RHYTHM WITH SINUS ARRHYTHMIA ANTEROLATERAL MYOCARDIAL INFARCTION [40+ ms Q WAVE IN I/aVL/V3-V6], OF INDETERMINATE AGE Compared to ECG 02/29/2020 20:38:31 Left ventricular hypertrophy no longer present T-wave abnormality no longer present Possible ischemia no longer present Myocardial infarct finding still present Electronically Signed On 11-18-2020 18:31:54 HEAD ANIMAL KEEPER by MIRELLA PERKINS [id number]
--- NOTE | 2020-11-18 16:51 | ECG_ITS ---
[facility] Test Date: 2020-11-18 Pat Name: James Yen Department: Room: Gender: Male Cribber: : 1960 Requested By: Anand Cramer Order Number: [id number] Angi MD: MIRELLA PERKINS Measurements Intervals [place] Rate: 79 P: 16 VA: 160 QRS: -14 QRSD: 120 T: 141 QT: 371 QTc: 426 Interpretive Statements ELECTRONIC VENTRICULAR PACEMAKER ABNORMAL RHYTHM ECG Compared to ECG 11/18/2020 15:24:00 Sinus rhythm no longer present Sinus arrhythmia no longer present Myocardial infarct finding no longer present Electronically Signed On 11-18-2020 18:37:07 PART MAKER by MIRELLA PERKINS [id number]
--- NOTE | 2020-11-18 17:12 | XR_ITS ---
WS: [id number] Exam: XR chest 1V portable [id number] Date/Time of Exam: 11/18/2020 5:27 PM Reason For Exam: chest pain Comparison 11/14/2020. The lungs are fully expanded. No acute infiltrates. Mild chronic plaque atelectasis in the right lowe r lung zone. Heart size is normal. The mediastinum is not widened. Signs of previous median sternotom y. An ICD superimposes the left chest. XR/XR chest 1V portable [id number] IMPRESSION: 1. No acute cardiopulmonary finding.
[2020-11-18 18:02] LABS: Basophils # 0.1 10^3/uL (0.0-0.1); Basophils % 0.6 %; Eosinophils % 0.3 %; Hematocrit 44.5 % (42.0-52.0); Hemoglobin 14.6 g/dL (11.7-16.6); Lymphocytes # 2.5 10^3/uL (0.8-4.8); Lymphocytes % 25.4 %; Mean Corpuscular HGB Conc 32.8 g/dL (30.0-36.0); Mean Corpuscular Hemoglobin 30.7 pg (28.0-34.0); Mean Corpuscular Volume 93.5 fL (80-94); Monocytes # 0.9 10^3/uL (0.2-0.9); Monocytes % 8.9 %; Neutrophils # 6.11 10^3/uL (1.8-7.7); Neutrophils % 61.2 %; Nucleated Red Blood Cells % 0 %; Platelet Count 243 10^3/cmm (130-400); Red Blood Count 4.76 10^6/uL (4.1-5.3)
[2020-11-18 18:41] LABS: D Dimer 1.46 ug/mIFEU (0-0.59)
--- NOTE | 2020-11-18 19:09 | CTR_ITS ---
PROCEDURE INFORMATION: Exam: CT Angiography Chest With Contrast Exam date and time: 11/18/2020 7:15 PM Age: 60 years old Clinical indication: Shortness of breath; Prior surgery; Surgery type: Bypass, d-fib; Additional info: SOB, covid + TECHNIQUE: Imaging protocol: Computed tomographic angiography of the chest with intravenous contrast. 3D rendering (Not supervised by radiologist): MIP and/or 3D reconstructed images were created by the technologist. Radiation optimization: All CT scans at this facility use at least one of these dose optimization techniques: automated exposure control; mA and/or kV adjustment per patient size (includes targeted exams where dose is matched to clinical indication); or iterative reconstruction. Contrast material: OMNI 350; Contrast volume: 95 ml; Contrast route: INTRAVENOUS (IV); COMPARISON: Unspecified CT 02/29/2020 7:19 PM RADIATION DOSE METRICS: Total DLP (mGy-cm): 572.19 FINDINGS: Tubes, catheters and devices: Permanent pacemaker/AICD noted. Pulmonary arteries: Pulmonary arteries are well opacified. Pulmonary arteries are normal in caliber. No filling defects are demonstrated. No evidence of pulmonary embolism. Aorta: Mild atherosclerosis of the thoracic aorta. No aortic aneurysm or dissection. Thickening of the left ventricular myocardium suggesting systemic hypertension. Lungs: Patchy areas of ground-glass infiltrate throughout both lungs, consistent with COVID-19 pneumonia. Pleural space: No pneumothorax. No pleural effusion. Heart: No cardiomegaly noted. Lymph nodes: Unremarkable. No enlarged lymph nodes. Kidneys and ureters: Nonobstructing bilateral renal calculi up to 3 mm. The Bones/joints: Median sternotomy noted. Degenerative spine changes are noted. No acute osseous abnormality. Soft tissues: The soft tissues appear unremarkable. CT/CT angio chest PE protcl [id number] IMPRESSION: 1. Pulmonary arteries appear unremarkable. No evidence of pulmonary embolism. 2. No evidence of thoracic aortic aneurysm or dissection. 3. Patchy areas of ground-glass infiltrate throughout both lungs, consistent with COVID-19 pneumonia. Radiation Dose CTDIVOL = (mGy): DLP = 572.19 (mGy-cm)
[2020-11-18 19:30] LABS: Alanine Aminotransferase 13 U/L (0-41); Albumin Level 3.4 g/dL (3.5-5.2); Alkaline Phosphatase 74 IU/L (40-130); Aspartate Amino Transferase 13 U/L (0-40); Blood Urea Nitrogen 20 mg/dL (8-23); Calcium 8.8 mg/dL (8.5-10.5); Carbon Dioxide 25 mmol/L (22-29); Chloride 106 mmol/L (98-107); Globulin 2.5 g/dL (1.3-4.6); Glomerular Filtration Rate 61.6 mL/min (90-130); Glucose 81 mg/dL (65-115); Osmolality Calculated 292 mOsm/kg (285-295); Sodium 140 mmol/L (136-145); Total Bilirubin 0.2 mg/dL (0.15-1.2); Total Protein 5.9 g/dL (6.6-8.7)
[2020-11-18 19:33] LABS: Troponin(5th) Baseline 23 ng/L (0-15)
[2020-11-18 19:56] LABS: Anion Gap 13.5 (5-19); Potassium 4.5 mmol/L (3.5-5.1)
[2020-11-18] MEDS: iohexol 350 mg/mL 100 mL Btl IV (20:04)
--- NOTE | 2020-11-18 20:51 | ECG_ITS ---
[facility] Test Date: 2020-11-18 Pat Name: James Yen Department: Room: Gender: Male Progressive Care Unit Registered Nurse: : 1960 Requested By: Anand Cramer Order Number: [id number] Angi MD: Hemant Ruiz M.D. Measurements Intervals [place] Rate: 77 P: 20 WV: 165 QRS: -7 QRSD: 115 T: 142 QT: 370 QTc: 420 Interpretive Statements SINUS RHYTHM WITH SINUS ARRHYTHMIA INFERIOR MYOCARDIAL INFARCTION , OF INDETERMINATE AGE [40+ ms Q WAVE AND/OR ST/T ABNORMALITY IN II/aVF] MODERATE T-WAVE ABNORMALITY, CONSIDER LATERAL ISCHEMIA [-0.1+ mV T WAVE IN I/aVL/V5/V6] Compared to ECG 11/18/2020 17:32:06 Myocardial infarct finding now present T-wave abnormality now present Possible ischemia now present Ventricular-paced complex(es) or rhythm no longer present Electronically Signed On 11-19-2020 17:14:49 LABORER MARINE TERMINAL by Hemant Ruiz M.D. [email or web address]
[2020-11-18 21:02] LABS: Troponin 5 2HR 23.92 ng/L (0-15); Troponin 5 2HR Delta 0.92 ABS# (0-10)
--- NOTE | 2020-11-18 22:45 | ED_ITS ---
HPI - COVID General: Chief Complaint: COVID symptoms Stated Complaint: sob, dizziness Time Seen by Provider: 11/18/20 16:35 Source: patient Mode of arrival: ambulatory Limitations: no limitations Triage information: Has fever, cough or shortness of breath . Exposure to COVID + person last 14 days History of Present Illness: HPI Narrative: Patient has been feeling unwell for about a week now tested positive for COVID-19 4 days ago. The patient still feels weak and has some shortness of breath and now chest pain so he was sent by his primary care provider to be evaluated in the emergency department and to see if he was a candidate for a monoclonal antibody infusion. The patient has a history of hypertension, congestive heart failure, coronary artery disease. MD complaint: known COVID positive Prior covid testing: yes, results known Prior testing date: 11/14/20 COVID 19 common symptoms: positive dyspnea, fatigue and body aches; negative fever(s), chills, cough, non-productive cough, productive cough, headache(s), loss of sense of smell and/or taste, throat pain, nasal congestion, nausea, vomiting or diarrhea COVID 19 other sytmptoms: positive chest pain; negative chest pressure, pleuritic pain, requiring oxygen, requiring more oxygen, respiratory distress, cyanosis, lethargy or confusion Pertinent comorbid conditions: hypertension and heart disease COVID Results: SARS-CoV-2 RNA (RT-PCR) Pending 09/27/20 15:41 09/27/20 Nasal/Oral Coronavirus 2019 PCR Detected H 11/14/20 10:37 11/14/20 Review of Systems General: Reports: 10 or more systems reviewed and unremarkable except in HPI and below Const: Reports: body aches and fatigue; Denies: fever(s) or chills Eyes: Denies: change in vision or blurry vision ENMT: Denies: throat pain or nasal congestion Card: Reports: chest pain Resp: Reports: dyspnea; Denies: productive cough or non-productive cough GI: Denies: nausea, vomiting or diarrhea : Denies: flank pain, dysuria, urinary frequency, urinary urgency or urinary hesitancy Musc: Denies: neck pain, back pain or extremity swelling Skin/Breast: Denies: rash, pruritus or erythema Neuro: Denies: headache(s) or confusion Endo: Denies: polyuria, polydipsia or tired all the time PFSH ED PFSH: Medical History Abdominal pain ASHD (arteriosclerotic heart disease) Asthma Bilateral carotid artery stenosis Bilateral renal stones Bronchitis after surgery Cardiomyopathy CHF (congestive heart failure) Chronic migraine GERD (gastroesophageal reflux disease) HTN (hypertension), benign Hyperlipidemia ICD (implantable cardioverter-defibrillator) in place Patient's ICD was interrogated today. There was no ICD discharges. The pacing function appears to be appropriate. Lower urinary tract symptoms Nocturia Restless leg syndrome Surgical History H/O right wrist surgery History of ankle surgery History of CEA (carotid endarterectomy) History of mitral valve repair Hx of CABG S/P extracorporeal shock wave therapy S/P laparoscopic appendectomy (~02/24/20) Status post colonoscopy (10/10/20) repeat in 10 years Family History Other CAD (coronary artery disease) Hypertension Denies family history of Anesthesia complication Bleeding disorder Social History Smoking and tobacco status: never smoked Alcohol intake: never Marital status: Current occupational status: retired Physical Exam Const: COMMON NORMALS: no acute distress, average body habitus, patient oriented x3, no limitations, healthy appearing, alert and well nourished Neck/C-Spine: COMMON NORMALS: no meningeal signs and no JVD Resp: COMMON NORMALS: normal respiratory effort, No retractions, No use of accessory muscles, clear to auscultation bilaterally and percussion normal AUSCULTATION: clear to auscultation bilaterally PERCUSSION: percussion normal Cardio: COMMON NORMALS: no JVD, regular rate, regular rhythm, S1 normal heart sound present, S2 normal heart sound present, No gallops present (Cardio), No clicks present (Cardio), No murmurs present (Cardio), No rub (Cardio) and Peripheral pulses 2+ throughout RATE: regular rate RHYTHM: regular rhythm HEART SOUNDS: S1 normal heart sound present and S2 normal heart sound present PERIPHERAL PULSES: Peripheral pulses 2+ throughout GI: COMMON NORMALS: Normal to inspection, nondistended, normoactive bowel sounds present, Soft to palpation, non-tender, No hepatosplenomegaly present, no masses and no bruits PALPATION: Yes Soft to palpation and Yes No hepatosplenomegaly present Extremity: COMMON NORMALS: normal to inspection, full ROM, capillary refill normal, no calf tenderness and no pedal edema Neuro: COMMON NORMALS: patient oriented x3 SENSORIUM/ORIENTATION: Yes alert MENINGEAL SIGNS: Yes no meningeal signs Skin: COMMON NORMALS: no rashes or lesions noted, no wounds, turgor normal, no jaundice, no petechiae and no mottling GENERAL SKIN EXAM: no rashes or lesions noted and turgor normal Course Reevaluation(s): Reevaluation #1: Discussed his lab and imaging findings with him. Also discussed that he meets the clinical antibody infusion. Discussed the risks and benefits of the monoclonal antibody and the patient consented to take it. Discussed that it is under an emergency use authorization and he voiced understanding. He will take the infusion and be discharged home after that. Time: 21:00 Vital Signs: Vital signs: Vital Signs Temperature 98.1 F 11/18/20 14:17 Pulse Rate 76 11/18/20 22:57 Respiratory Rate 16 11/18/20 22:57 Blood Pressure 114/76 11/18/20 22:57 Pulse Oximetry 96 11/18/20 22:57 MDM - COVID MDM Narrative: Medical decision making narrative: 60-year-old male with multiple medical comorbidities who presents to the emergency department with complaints of chest pain or shortness of breath. He was recently diagnosed with COVID-19. He admits the criteria for monoclonal antibody infusion and he will receive it in the emergency department today. Evaluation in the ED was unremarkable. He is discharged home to follow-up with his primary care provider. Medical Records: Attestation: I reviewed the patient's medical records. Lab Data: Attestation: I reviewed the patient's lab results. Labs: Lab Results 11/18/20 11/18/20 11/18/20 Range/Units 17:21 17:21 17:21 WBC 10.0 (4.0-10.0) 10^3/ uL RBC 4.76 (4.1-5.3) 10^6/u L Hgb 14.6 (11.7-16.6) g/dL Hct 44.5 (42.0-52.0) % MCV 93.5 (80-94) fL MCH 30.7 (28.0-34.0) pg MCHC 32.8 (30.0-36.0) g/dL RDW 12.0 L (12.1-15.1) % Plt Count 243 (130-400) 10^3/c mm MPV 11.0 H (7.4-10.4) fL Neut % (Auto) 61.2 % Lymph % (Auto) 25.4 % Grundy % (Auto) 8.9 % Eos % (Auto) 0.3 % Baso % (Auto) 0.6 % Neut # (Auto) 6.11 (1.8-7.7) 10^3/u L Lymph # (Auto) 2.5 (0.8-4.8) 10^3/u L Grundy # (Auto) 0.9 (0.2-0.9) 10^3/u L Eos # (Auto) 0.0 (0.0-0.8) 10^3/u L Baso # (Auto) 0.1 (0.0-0.1) 10^3/u L Nucleated RBC % (a uto) 0 % Nucleated RBCs # 0.0 /100WBC PT Cancelled INR Cancelled D-Dimer Sodium Cancelled Potassium Cancelled Chloride Cancelled Carbon Dioxide Cancelled Anion Gap Cancelled BUN Cancelled Creatinine Cancelled GFR Calculation Cancelled Glucose Cancelled Calculated Osmolal ity Cancelled Calcium Cancelled Total Bilirubin Cancelled AST Cancelled ALT Cancelled Alkaline Phosphata se Cancelled Troponin T Baselin e Troponin T 120 Min coquille (0-15) ng/L Delta Troponin T (0-10) ABS# Total Protein Cancelled Albumin Cancelled Globulin Cancelled 11/18/20 11/18/20 11/18/20 Range/Units 17:21 17:21 18:20 WBC (4.0-10.0) 10^3/ uL RBC (4.1-5.3) 10^6/u L Hgb (11.7-16.6) g/dL Hct (42.0-52.0) % MCV (80-94) fL MCH (28.0-34.0) pg MCHC (30.0-36.0) g/dL RDW (12.1-15.1) % Plt Count (130-400) 10^3/c mm MPV (7.4-10.4) fL Neut % (Auto) % Lymph % (Auto) % Grundy % (Auto) % Eos % (Auto) % Baso % (Auto) % Neut # (Auto) (1.8-7.7) 10^3/u L Lymph # (Auto) (0.8-4.8) 10^3/u L Grundy # (Auto) (0.2-0.9) 10^3/u L Eos # (Auto) (0.0-0.8) 10^3/u L Baso # (Auto) (0.0-0.1) 10^3/u L Nucleated RBC % (a uto) % Nucleated RBCs # /100WBC PT 12.40 INR 0.90 D-Dimer Cancelled 1.46 H Sodium Potassium Chloride Carbon Dioxide Anion Gap BUN Creatinine GFR Calculation Glucose Calculated Osmolal ity Calcium Total Bilirubin AST ALT Alkaline Phosphata se Troponin T Baselin e Cancelled Troponin T 120 Min coquille (0-15) ng/L Delta Troponin T (0-10) ABS# Total Protein Albumin Globulin 11/18/20 11/18/20 11/18/20 Range/Units 18:54 18:54 20:25 WBC (4.0-10.0) 10^3/ uL RBC (4.1-5.3) 10^6/u L Hgb (11.7-16.6) g/dL Hct (42.0-52.0) % MCV (80-94) fL MCH (28.0-34.0) pg MCHC (30.0-36.0) g/dL RDW (12.1-15.1) % Plt Count (130-400) 10^3/c mm MPV (7.4-10.4) fL Neut % (Auto) % Lymph % (Auto) % Grundy % (Auto) % Eos % (Auto) % Baso % (Auto) % Neut # (Auto) (1.8-7.7) 10^3/u L Lymph # (Auto) (0.8-4.8) 10^3/u L Grundy # (Auto) (0.2-0.9) 10^3/u L Eos # (Auto) (0.0-0.8) 10^3/u L Baso # (Auto) (0.0-0.1) 10^3/u L Nucleated RBC % (a uto) % Nucleated RBCs # /100WBC PT INR D-Dimer Sodium 140 Potassium 4.5 Chloride 106 Carbon Dioxide 25 Anion Gap 13.5 BUN 20 Creatinine 1.2 GFR Calculation 61.6 L Glucose 81 Calculated Osmolal ity 292 Calcium 8.8 Total Bilirubin 0.2 AST 13 ALT 13 Alkaline Phosphata se 74 Troponin T Baselin e 23 H Troponin T 120 Min coquille 23.92 H (0-15) ng/L Delta Troponin T 0.92 (0-10) ABS# Total Protein 5.9 L Albumin 3.4 L Globulin 2.5 Imaging Data: CTA Chest: Attestation: I personally reviewed and interpreted this imaging study as follows: Radiologist's impression: [place] [address] CT Scan Report Signed Patient: James Yen #: [id number] : 9Acct#:[id number] Age/Sex: 60 / MADM Date: 11/18/20 Loc: [facility]/Bed: Attending Dr: Ordering Provider/Ordering MD: Jade Bingham MD, [facility] [place] Date of Service: 11/18/20 Procedure(s): CT angio chest PE prot [id number] Accession Number(s): [id number] Report Number: [id number] PROCEDURE INFORMATION: Exam: CT Angiography Chest With Contrast Exam date and time: 11/18/2020 7:15 PM Age: 60 years old Clinical indication: Shortness of breath; Prior surgery; Surgery type: Bypass, d-fib; Additional info: SOB, covid + TECHNIQUE: Imaging protocol: Computed tomographic angiography of the chest with intravenous contrast. 3D rendering (Not supervised by radiologist): MIP and/or 3D reconstructed images were created by the technologist. Radiation optimization: All CT scans at this facility use at least one of these dose optimization techniques: automated exposure control; mA and/or kV adjustment per patient size (includes targeted exams where dose is matched to clinical indication); or iterative reconstruction. Contrast material: OMNI 350; Contrast volume: 95 ml; Contrast route: INTRAVENOUS (IV); COMPARISON: Unspecified CT 02/29/2020 7:19 PM RADIATION DOSE METRICS: Total DLP (mGy-cm): 572.19 FINDINGS: Tubes, catheters and devices: Permanent pacemaker/AICD noted. Pulmonary arteries: Pulmonary arteries are well opacified. Pulmonary arteries are normal in caliber. No filling defects are demonstrated. No evidence of pulmonary embolism. Aorta: Mild atherosclerosis of the thoracic aorta. No aortic aneurysm or dissection. Thickening of the left ventricular myocardium suggesting systemic hypertension. Lungs: Patchy areas of ground-glass infiltrate throughout both lungs, consistent with COVID-19 pneumonia. Pleural space: No pneumothorax. No pleural effusion. Heart: No cardiomegaly noted. Lymph nodes: Unremarkable. No enlarged lymph nodes. Kidneys and ureters: Nonobstructing bilateral renal calculi up to 3 mm. The Bones/joints: Median sternotomy noted. Degenerative spine changes are noted. No acute osseous abnormality. Soft tissues: The soft tissues appear unremarkable. CT/CT angio chest PE protcl [id number] IMPRESSION: 1. Pulmonary arteries appear unremarkable. No evidence of pulmonary embolism. 2. No evidence of thoracic aortic aneurysm or dissection. 3. Patchy areas of ground-glass infiltrate throughout both lungs, consistent with COVID-19 pneumonia. Radiation Dose CTDIVOL = (mGy): DLP = 572.19 (mGy-cm) Dictated By:Davie Quinteros MD Signed By:Davie Quinterosigned Date/Time:11/18/202027 DD/ 25 EKG Data: EKG 1: Attestation: I personally reviewed and interpreted this EKG as follows: EKG interpretation date: 11/18/20 EKG interpretation time: 17:32 Prior EKG tracings: not available for review Interpretation: Electronic ventricular pacemaker. Heart rate [address] changes. EKG 2: Attestation: I personally reviewed and interpreted this EKG as follows: EKG interpretation date: 11/18/20 EKG interpretation time: 22:25 Prior EKG tracings: available for review Interpretation: Sinus rhythm with sinus arrhythmia. Heart rate [address] changes. COVID Results: SARS-CoV-2 RNA (RT-PCR) Pending 09/27/20 15:41 09/27/20 Nasal/Oral Coronavirus 2019 PCR Detected H 11/14/20 10:37 11/14/20 Monoclonal Antibody Treatments Inclusion/Exclusion Criteria weight >/= 40 kg and + direct Sars-Cov-2 test less than 7-10 days ago age >/= 55 and has hypertension and age >/= 55 and has diabetes not requiring hospitalization and not requiring oxygen (if not chronically on oxygen) Patient education patient/family/caregiver received/reviewed fact sheet, Emergency Use Authorization/unapproved drug status discussed with patient/family/caregiver, alternatives to this treatment discussed with patient/family/caregiver, risks and benefits of medication reviewed with patient/family/caregiver, patient/family/caregiver given opportunity for questions, which were answered and patient consents to receiving Monoclonal Antibody Treatment Plan for treatment Meets criteria for Monoclonal Antibody infusion Ordering Monoclonal Antibody infusion for today Discharge Plan Discharge Patient Disposition: Home Clinical Impression: Pneumonia due to 2019 novel coronavirus Condition: Stable Prescriptions: Continued ranolazine [Ranexa] 500 mg tablet extended release 12 hr 500 mg PO BID@799,1999 RF: 0 clopidogrel [Plavix] 75 mg tablet 75 mg PO DAILY@0800 RF: 0 rosuvastatin [Crestor] 20 mg tablet 20 mg PO DAILY@0800 RF: 0 omeprazole 40 mg capsule,delayed release(DR/EC) 40 mg PO DAILY@0800 RF: 0 topiramate 100 mg capsule,extended release 24hr 100 mg PO DAILY@0800 RF: 0 fluticasone propion-salmeterol [Advair Diskus] 250-50 mcg/dose blister with device 1 inh INHALATION BID@799,1999 RF: 0 montelukast [Singulair] 10 mg tablet 10 mg PO DAILY@0800 RF: 0 aspirin 325 mg tablet 325 mg PO DAILY@0800 RF: 0 guaifenesin 600 mg tablet extended release 12hr 600 mg PO Q12H Qty: 20 RF: 0 albuterol sulfate [Ventolin HFA] 90 mcg/actuation HFA aerosol inhaler 2 puff INHALATION Q6H PRN (Reason: Shortness Of Breath) Qty: 8.5 RF: 1 ondansetron 4 mg tablet,disintegrating 4 mg PO Q6H PRN (Reason: nausea and vomiting) Qty: 12 RF: 0 omega-3 fatty acids [Fish Oil Concentrate] 1,000 mg capsule 1,000 mg PO TID@ RF: 0 olopatadine [Patanase] 0.6 % spray,non-aerosol 2 spray INTRANASAL BID@799,1999 RF: 0 loratadine [Claritin] 10 mg tablet 10 mg PO DAILY@0800 RF: 0 prednisone 20 mg tablet 60 mg PO DAILY@799 RF: 0 tamsulosin 0.4 mg capsule 0.4 mg PO BEDTIME@1999 RF: 0 dexamethasone 4 mg tablet 8 mg PO DAILY@799 RF: 0 metoprolol succinate 25 mg tablet extended release 24 hr 25 mg PO DAILY@799 RF: 0 doxycycline hyclate 100 mg tablet 100 mg PO BID@799,1999 RF: 0 Discharge Orders: Discharge ED (Routine); Ordered 11/18/20 Ordered By: Jade Bingham Referrals: Kateryna Alberts MD [Primary Care Provider] - 1-3 days Discharge Diet: Usual diet Discharge Activity: Increase activity as tolerated Patient Instructions: Viral Pneumonia (ED), Viral Syndrome (ED) Activity Restrictions/Additional Instructions: Return for any new or worsening symptoms. Follow-up with your primary care provider within 3 days via telemedicine. Continue your home medications. Coding Level of Care Code ED Shop Superintendent for Chg Fwd Exam Detailed
[2020-11-19 00:43] VITALS: BP 121/71; PULSE 77; RESP 16; TEMP 36.7; O2SAT 97
== END 2020-11-19 00:45 | disposition home or self-care (01) ==
PROVIDERS: Nurse Practitioner Family; Emergency Provider Family Medicine; PCP Family Medicine
DX: U07.1 COVID-19 (principal); J12.82 Pneumonia due to coronavirus disease 2019; Z79.02 Long term (current) use of antithrombotics/antiplatelets; Z79.82 Long term (current) use of aspirin; I11.0 Hypertensive heart disease with heart failure; I50.9 Heart failure, unspecified; E78.5 Hyperlipidemia, unspecified; Z95.1 Presence of aortocoronary bypass graft
CPT/HCPCS: 12345; 36415; 71045; 71275; 80053; 84484; 85025; 85378; 85610; 93005; 96374; 99283; 99284; J7050; Q9967

== ENCOUNTER 2021-03-06 14:08 | Outpatient (CLI) | payer MEDICARE, OTHER, SELFPAY ==
--- NOTE | 2021-03-06 15:00 | USCV_ITS ---
James Yen Age: 60 Gender: M : 1960 Exam Date: 03/06/2021 14:29 Ordering Phys: Cathy Hernandez MD ([email or web address]) Technologist: Exam Location: [facility] [place] Indication: MV REPAIN BP: 140 / 90 HR: 86 Rhythm: Sinus Technical Quality: Fair MEASUREMENTS (Male / Female) Normal Values 2D ECHO LV Diastolic Diameter PLAX 4.8 cm 4.2 - 5.9 / 3.9 - 5.3 cm LV Systolic Diameter PLAX 3.5 cm IVS Diastolic Thickness 1.3 cm 0.6 - 1.0 / 0.6 - 0.9 cm IVS Systolic Thickness 1.4 cm LVPW Diastolic Thickness 0.9 cm 0.6 - 1.0 / 0.6 - 0.9 cm LVPW Systolic Thickness 1.3 cm LVOT Diameter 2.3 cm LV Ejection Fraction 2D Teich 52.7 % LV Ejection Fraction MOD 2C 45.7 % LV Ejection Fraction 2C AL 45.0 % LA Diameter 4.5 cm LA Width 3.9 cm LA Height 4.7 cm RA Width 3.8 cm RA Height 3.6 cm Aorta at Sinotubular Diameter 2.5 cm M-MODE LV Diastolic Diameter MM 4.3 cm 4.2 - 5.9 / 3.9 - 5.3 cm LV Systolic Diameter MM 3.1 cm LV Ejection Fraction MM Teich 54.5 % IVS Diastolic Thickness MM 1.4 cm 0.6 - 1.0 / 0.6 - 0.9 cm IVS Systolic Thickness MM 1.8 cm LVPW Diastolic Thickness MM 1.5 cm 0.6 - 1.0 / 0.6 - 0.9 cm LVPW Systolic Thickness MM 1.5 cm RV Diastolic Diameter MM 2.2 cm Aortic Annulus Diameter 3.4 cm LA Ao Ratio MM 1.3 MV E Point Septal Separation 1.5 cm DOPPLER AV Peak Velocity 153.0 cm/s LVOT Peak Velocity 66.0 cm/s AV Area Cont Eq vti 1.8 cm squared AV Area Cont Eq pk 1.8 cm squared MV Area PHT 5.0 cm squared Mitral E to A Ratio 0.8 MV E' Velocity 70.0 cm/s Mitral E to MV E' Ratio 17.0 Mitral E to LV E' Lateral Ratio 14.9 Mitral E to LV E' Septal Ratio 19.8 TR Peak Velocity 216.5 cm/s TR Peak Gradient 18.7 mmHg Right Atrial Pressure 3.0 mmHg Pulmonary Artery Systolic Pressu 21.7 mmHg PV Peak Velocity 108.0 cm/s FINDINGS Left Ventricle Is hypokinesis of the left ventricle with ejection fraction of around 35 to 40%. The septum and anteroseptal segments were found to be severely hypokinetic and thinned out pacemaker/ICD wire on the right ventricle and right atrium. Mitral annular ring is intact Right Ventricle ICD/pacemaker wire in the right ventricle Right Atrium ICD/pacemaker wire in the right atrium. Left Atrium Mildly increased left atrial size. Mitral Valve Mitral annular ring is intact Aortic Valve Thickened aortic valve. Mild aortic valve calcification. Tricuspid Valve Trace tricuspid valve regurgitation. Pulmonic Valve Gross abnormalities noted Pericardium Normal pericardium without effusion. Aorta Normal ascending aorta dimension. CONCLUSIONS Normal LV size with diminished ejection fraction of 35 to 40%. All motion normalities as mentioned above Mildly increased left atrial size. Pacemaker/ICD wire in the right atrium and right ventricle. Trace tricuspid valve regurgitation. Mitral annular ring appears to be intact. Compared to the study from 06/25/2016, there is slight improvement in the LV systolic function. Dr Cathy Hernandez MD [facility] (Electronically Signed) Final Date: 07 Mar 2021 18:59 S
== END 2021-03-06 14:09 | disposition home or self-care (01) ==
PROVIDERS: PCP Family Medicine; Visit Provider Internal Medicine Cardiovascular Disease
DX: I25.5 Ischemic cardiomyopathy (principal); Z95.0 Presence of cardiac pacemaker
CPT/HCPCS: 93306

== ENCOUNTER 2021-06-19 07:01 | Outpatient (CLI) | payer MEDICARE, OTHER, SELFPAY ==
--- NOTE | 2021-06-19 07:08 | USCV_ITS ---
James Yen Age: 61 Gender: M : 1960 Exam Date: 06/19/2021 07:25 Ordering Phys: Mina Santo MD (Andy) ([email or web address] [place]) Technologist: JOSE L Exam Location: [facility] [place] Indication: OCCLUSION AND STENOSIS OF BILATERAL CAROTID ARTERIES Risk Factors: Previous Vascular Surgery: R CEA, L CEA Right Brachial BP: / Left Brachial BP: / Right Left Velocity (cm/s) Spectral Plaque Velocity (cm/s) Spectral Plaque Syst/Diast Broadening Syst/Diast Broadening 83.50/ 23.60 Prox CCA / 147.70/44.10 Mid CCA / 118.00/36.40 Distal CCA / 172.00/59.70 Prox ICA / 153.50/51.20 Mid ICA / 149.30/49.80 Distal ICA / 220.60 ECA 1.04 ICA/CCA Antegrade Vertebral Antegrade 27.60/ 4.30 cm/s 57.50/ 29.50 cm/s Tri Subclavian Bi 95.50 143.3 0 FINDINGS Comparison:. 09/02/20. Complete occlusion of the left carotid artery is chronic. Bilateral antegrade vertebral arteries. Mild elevation of velocity and atherosclerosis right carotid system. No high grade stenosis. CONCLUSIONS No change seen from prior study. Right ICA stenosis 50-69%. Chronic left carotid occlusion. Dr. Rocio Reynolds DO (Electronically Signed) Final Date: 19 June 2021 10:01 S
== END 2021-06-19 07:02 | disposition home or self-care (01) ==
PROVIDERS: PCP Family Medicine; Visit Provider Thoracic Surgery (Cardiothoracic Vascular Surgery)
DX: I65.23 Occlusion and stenosis of bilateral carotid arteries (principal)
CPT/HCPCS: 93880

== ENCOUNTER 2021-09-30 13:22 | Outpatient (CLI) | payer MEDICARE, OTHER, SELFPAY ==
--- NOTE | 2021-09-30 13:15 | XR_ITS ---
WS: [id number] Exam: XR KUB [id number] Date/Time of Exam: 09/30/2021 1:34 PM Reason For Exam: BILATERAL RENAL STONES Comparison 08/14/2020. Again noted are multiple small calcification superimposing the left renal silhouette suggesting multi ple stones. No bowel obstruction or free air. No sign of organ enlargement. Advanced degenerative ricky nges of the lower lumbar spine. XR/XR KUB [id number] IMPRESSION: 1. Multiple small left renal stones. 2. No acute abdominal process.
== END 2021-09-30 13:23 | disposition home or self-care (01) ==
LOC: RAD 13:25
PROVIDERS: PCP Family Medicine; Visit Provider Urology
DX: N20.0 Calculus of kidney (principal)
CPT/HCPCS: 74018; 81003

== ENCOUNTER 2021-10-13 12:42 | Outpatient (CLI) | payer MEDICARE, OTHER, SELFPAY ==
--- NOTE | 2021-10-13 12:45 | USCV_ITS ---
James Yen Age: 61 Gender: M : 1960 Exam Date: 10/13/2021 13:12 Ordering Phys: Cathy Hernandez MD ([email or web address]) Technologist: Exam Location: [facility] [place] Indication: CHEST PAIN BP: 135 / 75 HR: 92 Rhythm: Sinus Technical Quality: Adequate MEASUREMENTS (Male / Female) Normal Values 2D ECHO LV Diastolic Diameter PLAX 6.0 cm 4.2 - 5.9 / 3.9 - 5.3 cm LV Systolic Diameter PLAX 5.5 cm IVS Diastolic Thickness 1.1 cm 0.6 - 1.0 / 0.6 - 0.9 cm IVS Systolic Thickness 1.4 cm LVPW Diastolic Thickness 0.7 cm 0.6 - 1.0 / 0.6 - 0.9 cm LVPW Systolic Thickness 0.9 cm LVOT Diameter 2.1 cm LV Ejection Fraction 2D Teich 20.7 % LV Ejection Fraction MOD 2C 48.0 % LV Ejection Fraction 2C AL 47.3 % LA Diameter 4.2 cm LA Width 4.4 cm LA Height 5.0 cm RA Width 3.7 cm RA Height 4.6 cm M-MODE Aortic Annulus Diameter 3.5 cm LA Ao Ratio MM 1.2 MV E Point Septal Separation 1.8 cm DOPPLER AV Peak Velocity 143.0 cm/s LVOT Peak Velocity 78.0 cm/s AV Area Cont Eq vti 1.8 cm squared AV Area Cont Eq pk 1.9 cm squared MV Area PHT 5.0 cm squared Mitral E to A Ratio 0.8 MV E' Velocity 66.0 cm/s Mitral E to MV E' Ratio 17.5 Mitral E to LV E' Lateral Ratio 14.8 Mitral E to LV E' Septal Ratio 21.8 TR Peak Velocity 77.0 cm/s TR Peak Gradient 2.4 mmHg Right Atrial Pressure 3.0 mmHg Pulmonary Artery Systolic Pressu 5.4 mmHg FINDINGS Left Ventricle Severe diffuse hypokinesia of the septum, anteroseptum, inferior wall and apical segments. Mildly dilated LV cavity. LV ejection fraction around 35%( visual).Grade I/IV diastolic dysfunction (abnormal relaxation filling pattern), normal to mildly elevated filling pressures. Right Ventricle The right ventricle is normal in size and function. Right Atrium The right atrium is normal in size. Left Atrium Mildly increased left atrial size. Mitral Valve Thickened mitral valve. Moderate mitral annular calcification. Dense calcification of the posterior mitral annulus Aortic Valve Thickened aortic valve. Tricuspid Valve Trace tricuspid valve regurgitation. Pulmonic Valve Pulmonic valve not well visualized. Pericardium Normal pericardium without effusion. Aorta Normal ascending aorta dimension. CONCLUSIONS Severe diffuse hypokinesia of the septum, anteroseptum, inferior wall and apical segments. Mildly dilated LV cavity. LV ejection fraction around 35%(visual). Grade I/IV diastolic dysfunction (abnormal relaxation filling pattern), normal to mildly elevated filling pressures. Mildly increased left atrial size. Thickened mitral valve. Moderate mitral annular calcification. Dense calcification of the posterior mitral annulus Thickened aortic valve. Trace tricuspid valve regurgitation. There is no pericardial effusion. There are no intracardiac masses. Compared to the study from 03/06/2021, there may not be a significant change Dr Cathy Hernandez MD [facility] (Electronically Signed) Final Date: 16 October 2021 10:01 S
== END 2021-10-13 12:43 | disposition home or self-care (01) ==
LOC: RAD 12:45
PROVIDERS: PCP Family Medicine; Visit Provider Internal Medicine Cardiovascular Disease
DX: R06.00 Dyspnea, unspecified (principal); R07.9 Chest pain, unspecified; I08.3 Combined rheumatic disorders of mitral, aortic and tricuspid valves
CPT/HCPCS: 93306

== ENCOUNTER → 2021-11-25 16:21 | Outpatient (BNVA) | payer MEDICARE, OTHER, SELFPAY | PROVIDERS: PCP Family Medicine; Visit Provider Emergency Medicine | DX: R68.89 Other general symptoms and signs (principal); Z20.822 Contact with and (suspected) exposure to COVID-19; J02.9 Acute pharyngitis, unspecified; J45.40 Moderate persistent asthma, uncomplicated; J06.9 Acute upper respiratory infection, unspecified; J40 Bronchitis, not specified as acute or chronic | CPT/HCPCS: 87400; 87635; 87880 ==

== ENCOUNTER → 2022-04-10 11:38 | Outpatient (BNVA) | payer MEDICARE, OTHER, SELFPAY | PROVIDERS: PCP Family Medicine; Visit Provider Internal Medicine Cardiovascular Disease | DX: Z45.02 Encounter for adjustment and management of automatic implantable cardiac defibrillator (principal) | CPT/HCPCS: 93282 ==

== ENCOUNTER → 2022-04-16 10:04 | Outpatient (BNVA) | payer MEDICARE, OTHER, SELFPAY | PROVIDERS: PCP Family Medicine; Visit Provider Internal Medicine Cardiovascular Disease | DX: I25.5 Ischemic cardiomyopathy (principal); I11.0 Hypertensive heart disease with heart failure; I50.22 Chronic systolic (congestive) heart failure; I25.10 Atherosclerotic heart disease of native coronary artery without angina pectoris; E78.2 Mixed hyperlipidemia; I65.23 Occlusion and stenosis of bilateral carotid arteries; Z95.810 Presence of automatic (implantable) cardiac defibrillator | CPT/HCPCS: 99214 ==

== ENCOUNTER → 2022-09-02 11:11 | Outpatient (BNVA) | payer MEDICARE, OTHER, SELFPAY | PROVIDERS: PCP Family Medicine; Visit Provider Emergency Medicine | DX: L25.5 Unspecified contact dermatitis due to plants, except food (principal); I25.5 Ischemic cardiomyopathy; R06.02 Shortness of breath; E78.5 Hyperlipidemia, unspecified; E78.2 Mixed hyperlipidemia; I50.33 Acute on chronic diastolic (congestive) heart failure; I50.22 Chronic systolic (congestive) heart failure | CPT/HCPCS: 80061; 83880 ==

== ENCOUNTER → 2022-10-22 10:40 | Outpatient (BNVA) | payer MEDICARE, OTHER, SELFPAY | PROVIDERS: PCP Family Medicine; Visit Provider Internal Medicine Cardiovascular Disease | DX: I65.23 Occlusion and stenosis of bilateral carotid arteries (principal); Z95.810 Presence of automatic (implantable) cardiac defibrillator; I25.5 Ischemic cardiomyopathy; I11.0 Hypertensive heart disease with heart failure; I50.22 Chronic systolic (congestive) heart failure; E78.2 Mixed hyperlipidemia; I25.10 Atherosclerotic heart disease of native coronary artery without angina pectoris; Z95.1 Presence of aortocoronary bypass graft; F17.200 Nicotine dependence, unspecified, uncomplicated | CPT/HCPCS: 99214 ==

== ENCOUNTER 2022-11-04 15:14 | Outpatient (CLI) | payer MEDICARE, OTHER, SELFPAY ==
[2022-11-04 16:13] LABS: Basophils # 0.1 10^3/uL (0.0-0.1); Basophils % 0.8 %; Eosinophils # 0.3 10^3/uL (0.0-0.8); Eosinophils % 4.3 %; Hematocrit 43.5 % (42.0-52.0); Hemoglobin 14.7 g/dL (11.7-16.6); Lymphocytes # 2.5 10^3/uL (0.8-4.8); Lymphocytes % 32.1 %; Mean Corpuscular HGB Conc 33.8 g/dL (30.0-36.0); Mean Corpuscular Hemoglobin 29.5 pg (28.0-34.0); Mean Corpuscular Volume 87.2 fl (80-94); Mean Platelet Volume 9.7 fL (7.4-10.4); Monocytes # 0.7 10^3/uL (0.2-0.9); Monocytes % 9.7 %; Neutrophils # 4.03 10^3/uL (1.8-7.7); Neutrophils % 52.6 %; Nucleated Red Blood Cells % 0 %; Platelet Count 245 10^3/cmm (130-400); Red Blood Count 4.99 10^6/uL (4.1-5.3); Red Cell Distribution Width 12.9 % (12.1-15.1); White Blood Count 7.7 10^3/uL (4.0-10.0)
[2022-11-04 16:33] LABS: Blood Urine 2+ (Negative); Glucose Urine UA Norm (Normal); Ketones Urine Negative (Negative); Nitrate Urine Negative (Negative); Protein Urine 2+ (Negative); Urine Appearance Clear (CLEAR); Urine Color Yellow (Yellow); pH Urine 5 (5-7)
[2022-11-04 16:34] LABS: Bacteria Urine TRACE /hpf; Bilirubin Urine Neg (Negative); Leukocyte Esterase Urine Negative (Negative); Mucus Urine TRACE /hpf; Squamous Epithelial Cell Urine RARE /hpf (0-5); Urobilinogen Urine Norm (Negative); WBC Urine 0-4 /hpf (0-5)
[2022-11-04 16:46] LABS: Alanine Aminotransferase 18 U/L (0-41); Albumin Level 4.2 g/dL (3.5-5.2); Alkaline Phosphatase 100 U/L (40-130); Anion Gap 14.3 (5-19); Aspartate Amino Transferase 19 U/L (0-40); Blood Urea Nitrogen 14 mg/dL (8-23); Calcium 8.8 mg/dL (8.5-10.5); Carbon Dioxide 24 mmol/L (22-29); Chloride 104 mmol/L (98-107); Globulin 3.3 g/dL (1.3-4.6); Glomerular Filtration Rate 85.2 mL/min (90-130); Glucose 102 mg/dL (65-115); Osmolality Calculated 287 mOsm/kg (285-295); Potassium 4.3 mmol/L (3.5-5.1); Sodium 138 mmol/L (136-145); Total Bilirubin 0.2 mg/dL (0.15-1.2); Total Protein 7.5 g/dL (6.6-8.7)
[2022-11-04 16:58] LABS: Prostate Specific AG Urology 0.35 ng/mL (0-4)
[2022-11-04 17:11] LABS: Hepatitis A Antibody IgM Non-Reactive (Nonreactive); Hepatitis B Core AB, Total Non-Reactive (Nonreactive); Hepatitis B Surface AB 3.5 (11.5-1000); Hepatitis B Surface Antigen Non-Reactive (Nonreactive); Hepatitis C Virus Antibody Non-Reactive (Nonreactive)
[2022-11-05 11:50] LABS: CENTROMERE B ANTIBODY <1.0 NEG AI (<1.0 NEG); JO-1 ANTIBODY <1.0 NEG AI (<1.0 NEG); RNP ANTIBODY <1.0 NEG AI (<1.0 NEG); SCL-70 ANTIBODY <1.0 NEG AI (<1.0 NEG); SJOGREN'S ANTIBODY (SS-A) <1.0 NEG AI (<1.0 NEG); SM ANTIBODY <1.0 NEG AI (<1.0 NEG); SS-B <1.0 NEG AI (<1.0 NEG)
[2022-11-05 14:49] LABS: THYROID PEROXIDASE ANTIBODIES 2 IU/mL (<9)
[2022-11-05 15:45] LABS: ANA SCREEN, IFA NEGATIVE (NEGATIVE)
[2022-11-06 13:48] LABS: COMPLEMENT COMPONENT C3C 188 mg/dL (82-185); COMPLEMENT COMPONENT C4C 38 mg/dL (15-53)
[2022-11-06 14:49] LABS: COMPLEMENT, TOTAL (CH50) >60 U/mL (31-60)
[2022-11-07 16:13] LABS: DNA AB (DS) CRITHIDIA,IFA NEGATIVE (NEGATIVE)
== END 2022-11-04 15:15 | disposition home or self-care (01) ==
LOC: LAB 15:18
PROVIDERS: Urology; PCP Family Medicine; Visit Provider Nurse Practitioner Family
DX: D69.0 Allergic purpura (principal); M31.0 Hypersensitivity angiitis; Z11.59 Encounter for screening for other viral diseases; R35.1 Nocturia
CPT/HCPCS: 36415; 80053; 81001; 84153; 85025; 86160; 86162; 86235; 86255; 86376; 86431; 86705; 86706; 86709; 86803; 87340

== ENCOUNTER 2022-11-10 12:18 | Outpatient (CLI) | payer MEDICARE, OTHER, SELFPAY ==
[2022-11-10 13:31] LABS: Prostate Specific AG Urology 0.31 ng/mL (0-4)
== END 2022-11-10 12:19 | disposition home or self-care (01) ==
LOC: LAB 12:25
PROVIDERS: PCP Family Medicine; Visit Provider Urology
DX: Z12.5 Encounter for screening for malignant neoplasm of prostate (principal); R35.1 Nocturia
CPT/HCPCS: 84153

== ENCOUNTER 2022-11-11 15:36 | Outpatient (CLI) | payer MEDICARE, OTHER, SELFPAY ==
[2022-11-11 16:53] LABS: Bilirubin Urine Neg (Negative); Blood Urine 2+ (Negative); Glucose Urine UA Norm (Normal); Ketones Urine Negative (Negative); Leukocyte Esterase Urine Negative (Negative); Nitrate Urine Negative (Negative); Protein Urine 1+ (Negative); Urine Appearance Clear (CLEAR); Urine Color Light yellow (Yellow); Urobilinogen Urine Neg (Negative); pH Urine 5 (5-7)
[2022-11-11 16:55] LABS: Add Urine Culture? No; RBC Urine RARE /hpf (0-2)
[2022-11-11 17:44] LABS: Alanine Aminotransferase 19 U/L (0-41); Albumin Level 3.8 g/dL (3.5-5.2); Alkaline Phosphatase 83 U/L (40-130); Anion Gap 14.4 (5-19); Aspartate Amino Transferase 22 U/L (0-40); Blood Urea Nitrogen 13 mg/dL (8-23); Calcium 9.5 mg/dL (8.5-10.5); Carbon Dioxide 23 mmol/L (22-29); Chloride 104 mmol/L (98-107); Globulin 3.3 g/dL (1.3-4.6); Glomerular Filtration Rate 67.6 mL/min (90-130); Glucose 92 mg/dL (65-115); Osmolality Calculated 284 mOsm/kg (285-295); Potassium 4.4 mmol/L (3.5-5.1); Sodium 137 mmol/L (136-145); Total Bilirubin 0.2 mg/dL (0.15-1.2); Total Protein 7.1 g/dL (6.6-8.7)
== END 2022-11-11 15:37 | disposition home or self-care (01) ==
LOC: LAB 15:40
PROVIDERS: PCP Family Medicine; Visit Provider Nurse Practitioner Family
DX: D69.0 Allergic purpura (principal); Z79.899 Other long term (current) drug therapy
CPT/HCPCS: 36415; 80053; 81001

== ENCOUNTER 2022-11-17 16:05 | Outpatient (CLI) | payer MEDICARE, OTHER, SELFPAY ==
--- NOTE | 2022-11-17 16:17 | XR_ITS ---
WS: [id number] Exam: XR KUB [id number] Date/Time of Exam: 11/17/2022 4:17 PM Reason For Exam: Urolithiasis Comparison 09/30/2021. No bowel obstruction or free air. No sign of organ enlargement. Numerous small calcifications superim pose the left kidney representing known renal stones. Degenerative changes of the lower lumbar spine and mild levoscoliosis. XR/XR KUB [id number] IMPRESSION: 1. Small calcifications superimposing the left kidney apparently representing k nown renal stones. 2. No acute abdominal finding.
== END 2022-11-17 16:06 | disposition home or self-care (01) ==
PROVIDERS: PCP Family Medicine; Visit Provider Urology
DX: Z12.5 Encounter for screening for malignant neoplasm of prostate (principal); R39.9 Unspecified symptoms and signs involving the genitourinary system; N40.1 Benign prostatic hyperplasia with lower urinary tract symptoms; N20.0 Calculus of kidney; N20.9 Urinary calculus, unspecified
CPT/HCPCS: 51798; 74018; 81003; 99213

== ENCOUNTER → 2023-09-03 10:59 | Outpatient (BNVA) | payer MEDICARE, OTHER, SELFPAY | PROVIDERS: PCP Family Medicine; Visit Provider Internal Medicine Cardiovascular Disease | DX: Z45.02 Encounter for adjustment and management of automatic implantable cardiac defibrillator (principal) | CPT/HCPCS: 93296 ==

== ENCOUNTER → 2023-12-06 09:56 | Outpatient (BNVA) | payer MEDICARE, OTHER, SELFPAY | PROVIDERS: PCP Nurse Practitioner; Visit Provider Nurse Practitioner | DX: I50.22 Chronic systolic (congestive) heart failure (principal); I25.5 Ischemic cardiomyopathy; I10 Essential (primary) hypertension | CPT/HCPCS: 80053; 80061; 84443; 85025 ==

== ENCOUNTER → 2023-12-30 09:20 | Outpatient (BNVA) | payer MEDICARE, OTHER, SELFPAY | PROVIDERS: PCP Nurse Practitioner; Referring Provider Family Medicine; Visit Provider Family Medicine | DX: R73.09 Other abnormal glucose (principal); I65.23 Occlusion and stenosis of bilateral carotid arteries | CPT/HCPCS: 83036 ==

== ENCOUNTER → 2024-02-10 15:47 | Outpatient (BNVA) | payer MEDICARE, OTHER, SELFPAY | PROVIDERS: PCP Nurse Practitioner; Visit Provider Internal Medicine Cardiovascular Disease | DX: R06.02 Shortness of breath (principal) | CPT/HCPCS: 36415; 80048; 83880; 99214 ==

== ENCOUNTER 2024-02-21 15:43 | Outpatient (CLI) | payer MEDICARE, OTHER, SELFPAY | END 2024-02-21 15:44 | disposition home or self-care (01) | LOC: LAB 15:45 | PROVIDERS: PCP Nurse Practitioner; Visit Provider Internal Medicine Cardiovascular Disease | DX: Z45.02 Encounter for adjustment and management of automatic implantable cardiac defibrillator (principal); I50.22 Chronic systolic (congestive) heart failure | CPT/HCPCS: 36415; 80048; 83880; 93296 ==

== ENCOUNTER 2024-03-01 10:06 | Outpatient (CLI) | payer MEDICARE, OTHER, SELFPAY ==
--- NOTE | 2024-03-01 10:11 | USCV_ITS ---
James Yen Age: 63 Gender: M : 1960 Exam Date: 03/01/2024 10:41 Ordering Phys: Cathy Hernandez MD ([email or web address]) Technologist: Exam Location: [facility] – [place] Indication: lt ica occluded Risk Factors: Previous Vascular Surgery: Right Brachial BP: / Left Brachial BP: / Right Left Velocity (cm/s) Spectral Plaque Velocity (cm/s) Spectral Plaque Syst/Diast Broadening Syst/Diast Broadening 80.20/ 28.40 Prox CCA / 118.30/47.90 Mid CCA / 128.40/49.60 Distal CCA / 136.70/73.10 Prox ICA 105.10/ 29.50 146.80/66.10 Mid ICA 79.10 / 22.40 127.10/60.20 Distal ICA 149.90/ 34.20 96.50 ECA 112.20 1.10 ICA/CCA Antegrade Vertebral Antegrade 42.00/ 6.60 cm/s 48.40/ 24.80 cm/s Bi Subclavian Bi 125.1 86.20 0 FINDINGS complete occlusion of the lt cca retrograde ica flow in ica going to positve eca flow on lt Mild diffuse plaque in the right common carotid artery. Moderate to heavy heterogenous plaques at the right bifurcation and the proximal to mid ICA. No flow was detected in the left common carotid artery. Antegrade flow in the left external carotid artery and retrograde flow in the left internal carotid artery. Anterior flow in the vertebral arteries bilaterally. Near normal Doppler flow velocities in the external carotid , subclavian and vertebral arteries bilaterally. CONCLUSIONS 1. Features of total occlusion of the left common carotid artery with retrograde flow in the internal carotid artery possibly through the [place]. 2. Moderate to heavy heterogenous plaques of the right bifurcation and ICA with velocity elevation suggesting 50 to 69% stenosis 3. Mild diffuse plaque in the right common carotid artery. Compared to the study from 06/19/2021, there may not be a significant Dr Cathy Hernandez MD [facility] (Electronically Signed) Final Date: 06 Mar 2024 08:46 S
--- NOTE | 2024-03-01 10:32 | USCV_ITS ---
James Yen Age: 63 Gender: M : 1960 Exam Date: 03/01/2024 11:04 Ordering Phys: Cathy Hernandez MD ([email or web address]) Technologist: Exam Location: [facility] – [place] Indication: hx mi BP: 130 / 73 HR: 110 Rhythm: Sinus Technical Quality: Adequate MEASUREMENTS (Male / Female) Normal Values 2D ECHO LV Diastolic Diameter PLAX 6.5 cm 4.2 - 5.9 / 3.9 - 5.3 cm IVS Diastolic Thickness 1.2 cm 0.6 - 1.0 / 0.6 - 0.9 cm IVS Systolic Thickness 1.1 cm LVPW Diastolic Thickness 1.0 cm 0.6 - 1.0 / 0.6 - 0.9 cm LVPW Systolic Thickness 1.3 cm LVOT Diameter 2.0 cm LV Ejection Fraction 2D Teich 18.6 % LV Ejection Fraction MOD 2C 24.6 % LV Ejection Fraction 2C AL 24.5 % LA Diameter 3.7 cm RA Systolic Volume 4C AL 33.2 ml RA Systolic Volume 4C MOD 32.7 ml LA Sys Volume AL 63.0 cm cubed LA Sys Volume Index AL 29.0 cm cubed/m squared Aorta at Sinotubular Diameter 2.2 cm IVC Diameter 1.8 cm M-MODE LA Ao Ratio MM 1.2 AV Cusp Separation MM 1.8 cm DOPPLER AV Peak Velocity 192.0 cm/s LVOT Peak Velocity 88.0 cm/s AV Area Cont Eq vti 1.5 cm squared AV Area Cont Eq pk 1.4 cm squared MV Peak Velocity 137.0 cm/s MV Area PHT 3.6 cm squared Mitral E to A Ratio 0.8 TR Peak Velocity 133.0 cm/s TR Peak Gradient 7.1 mmHg TV Peak E Velocity 104.0 cm/s Right Atrial Pressure 3.0 mmHg Pulmonary Artery Systolic Pressu 10.1 mmHg PV Peak Velocity 98.0 cm/s FINDINGS Left Ventricle Moderately dilated LV cavity. Diffuse hypokinesis of the left ventricular ejection fraction of 25%.Grade III/IV diastolic dysfunction (restrictive filling pattern), severely elevated filling pressures. Right Ventricle The right ventricle is normal in size and function. Right Atrium The right atrium is normal in size. Left Atrium Mildly increased left atrial size. Mitral Valve Moderate mitral annular calcification. Trace mitral valve regurgitation. Aortic Valve Thickened aortic valve. Trace to mild aortic valve regurgitation. Tricuspid Valve Minimal thickening Pulmonic Valve No gross abnormalities noted Pericardium Normal pericardium without effusion. Aorta Normal ascending aorta dimension. IVC Normal inferior vena cava. CONCLUSIONS Moderately dilated LV cavity. Diffuse hypokinesis of the left ventricular ejection fraction of 25%.Grade III/IV diastolic dysfunction (restrictive filling pattern), severely elevated filling pressures. Mildly increased left atrial size. Thickened aortic valve. Trace to mild aortic valve regurgitation. Moderate mitral annular calcification. Trace mitral valve regurgitation. Minimal thickening. There is no pericardial effusion. There are no intracardiac masses. Compared to the study from 10/13/2021, there is some worsening of the LV systolic function. Dr Cathy Hernandez MD [facility] (Electronically Signed) Final Date: 06 Mar 2024 09:09 S
== END 2024-03-01 10:07 | disposition home or self-care (01) ==
LOC: RAD 10:06
PROVIDERS: PCP Nurse Practitioner; Visit Provider Internal Medicine Cardiovascular Disease
DX: I65.23 Occlusion and stenosis of bilateral carotid arteries (principal); R06.09 Other forms of dyspnea
CPT/HCPCS: 93306; 93880

== ENCOUNTER 2024-04-26 12:00 | Emergency (ER) | payer MEDICARE, OTHER, SELFPAY ==
[2024-04-26 12:05] VITALS: BP 177/83; PULSE 88; RESP 18; TEMP 36.7; O2SAT 98
--- NOTE | 2024-04-26 14:03 | ED_ITS ---
HPI - Weakness 2 General: Chief complaint: Weakness Stated complaint: stroke like sym from snake bite Time Seen by Provider: 04/26/24 13:48 Source: patient Mode of arrival: ambulatory History of Present Illness: Patient reports being bit in the left heel by a copperhead several days ago was seen at another outlying hospital. Presents today because continues to have swelling in that leg as well as aching and discomfort. Complaining of difficulty walking and uncomfortableness when he walks. Initially complained he could not move his extremities however on exam he has full movement and range of motion and strength in all extremities without deficit. He has some discomfort in the left heel with the swelling. MD Complaint: focal weakness and difficulty walking (Due to swelling and pain at bite site) Onset (ago): day(s) Duration: constant Location: LLE Migration: proximal Severity: mild Relieving factors: none Exacerbating factors: none Associated symptoms: Reports myalgias; Denies chest pain, chills, confusion, melena, decreased appetite, diaphoresis, dysuria, easy bruising, fever(s), headache(s), nausea, rash, short of breath, syncope or vomiting Review of Systems 2 Const: Denies: fever(s), chills or diaphoresis Card: Denies: chest pain or syncope Resp: Denies: dyspnea GI: Denies: abdominal pain, nausea, vomiting or melena : Denies: dysuria, urinary frequency or urinary urgency Musc: Denies: neck pain or back pain Skin/Breast: Denies: rash Neuro: Denies: headache(s) or confusion Riley/Lymph: Denies: easy bruising PFSH ED 2 PFSH: Medical History Urolithiasis Multi stone former. 2 punctate stones remaining left kidney. Remote surgical intervention. History of 2019 novel coronavirus disease (COVID-19) Lower urinary tract symptoms Nocturia Abdominal pain Restless leg syndrome Chronic migraine Asthma No past tobacco use, history of secondhand smoke exposure Bronchitis after surgery GERD (gastroesophageal reflux disease) Cardiomyopathy HTN (hypertension), benign ASHD (arteriosclerotic heart disease) Hyperlipidemia CHF (congestive heart failure) Bilateral carotid artery stenosis ICD (implantable cardioverter-defibrillator) in place Patient's ICD was interrogated today. There was no ICD discharges. The pacing function appears to be appropriate. Surgical History Status post colonoscopy (10/10/20) repeat in 10 years S/P extracorporeal shock wave therapy S/P laparoscopic appendectomy (~02/24/20) History of ankle surgery H/O right wrist surgery History of mitral valve repair Hx of CABG History of CEA (carotid endarterectomy) Family History Mother Anesthesia complication Cancer Chronic kidney disease (CKD) Lung disease Stroke Father Bleeding disorder Clotting disorder CAD (coronary artery disease) Cancer Dementia Diabetes Grandfather CAD (coronary artery disease) Family/Other CAD (coronary artery disease) Chronic kidney disease (CKD) Other Hypertension Denies family history of Suicide Social History Smoking and tobacco/nicotine status: current every day tobacco/nicotine user Alcohol intake: never Substance/Drug Use: never Marital status: Current occupational status: retired Physical Exam 2 Const: GENERAL APPEARANCE: cooperative and comfortable O RIENTATION/CONSCIOUSNESS: Yes awake, Yes oriented to person, Yes oriented to place and Yes oriented to time HENMT: COMMON NORMALS: normocephalic, atraumatic and hearing grossly normal bilaterally HEAD & SCALP: normocephalic and atraumatic Resp: COMMON NORMALS: normal respiratory effort, No retractions, No use of accessory muscles and clear to auscultation bilaterally AUSCULTATION: clear to auscultation bilaterally Cardio: COMMON NORMALS: regular rate, regular rhythm and No murmurs present (Cardio) RATE: regular rate RHYTHM: regular rhythm GI: COMMON NORMALS: Soft to palpation and No hepatosplenomegaly present A USCULTATION: Yes normoactive bowel sounds PALPATION: Yes Soft to palpation, No Tenderness to palpation present (GI), No Guarding due to palpation present (GI) and Yes No hepatosplenomegaly present Extremity: COMMON NORMALS: normal to inspection, capillary refill normal and no calf tenderness OTHER: Mild swelling of the left heel at the site of the bite. No sign of infection no skin induration no purulent drainage tenderness to palpation calf moderately swollen. Neuro: SENSORIUM/ORIENTATION: Yes oriented to person, Yes oriented to place and Yes oriented to time Skin: COMMON NORMALS: no rashes or lesions noted GENERAL SKIN EXAM: no rashes or lesions noted Course 2 Vital Signs: Vital signs: Vital Signs Temperature 98.1 F 04/26/24 12:05 Pulse Rate 76 04/26/24 15:45 Respiratory Rate 18 04/26/24 12:05 Blood Pressure 177/83 04/26/24 12:05 Pulse Oximetry 94 04/26/24 15:45 Oxygen Delivery Me thod Room Air 04/26/24 12:05 MDM - Weakness Medical Decision Making No leukocytosis ultrasound DVT negative for in the left lower extremity. Discharge patient home elevate he can apply cold if needed. Follow-up with primary care. Diclofenac as needed. Discussed usual recovery from copperhead bite. The swelling could last for several weeks typically. Medical Records I reviewed the patient's medical records. Lab Data I reviewed the patient's lab results. 04/26/24 13:58 04/26/24 13:[address] 04/26/24 14:30 IMPRESSION: No acute intracranial abnormality. Laboratory Results WBC 8.28 10^3/uL (3.29-11.43) 04/26/24 13:58 RBC 4.31 10^6/uL (3.85-5.65) 04/26/24 13:58 Hgb 13.00 g/dL (11.27-16.99) 04/26/24 13:58 Hct 39.2 % (37-53) 04/26/24 13:58 MCV 91.0 fl (82-101) 04/26/24 13:58 MCH 30.2 pg (27-33) 04/26/24 13:58 MCHC 33.2 g/dL (30-55) 04/26/24 13:58 RDW 12.7 % (12.1-15.1) 04/26/24 13:58 Plt Count 200 10^3/cmm (157-399) 04/26/24 13:58 MPV 9.7 fL (7.4-10.4) 04/26/24 13:58 Neut % (Auto) 74.6 % 04/26/24 13:58 Lymph % (Auto) 15.2 % 04/26/24 13:58 Toombs % (Auto) 7.7 % 04/26/24 13:58 Eos % (Auto) 1.6 % 04/26/24 13:58 Baso % (Auto) 0.5 % 04/26/24 13:58 Neut # (Auto) 6.18 10^3/uL (1.8-7.7) 04/26/24 13:58 Lymph # (Auto) 1.3 10^3/uL (0.8-4.8) 04/26/24 13:58 [place]ombs # (Auto) 0.6 10^3/uL (0.2-0.9) 04/26/24 13:58 Eos # (Auto) 0.1 10^3/uL (0.0-0.8) 04/26/24 13:58 Baso # (Auto) 0.0 10^3/uL (0.0-0.1) 04/26/24 13:58 Nucleated RBC % (auto) 0 % 04/26/24 13:58 Nucleated RBCs # 0.0 /100WBC 04/26/24 13:58 Sodium 139 mmol/L (136-145) 04/26/24 13:58 Potassium 4.0 mmol/L (3.5-5.1) 04/26/24 13:58 Chloride 103 mmol/L (98-107) 04/26/24 13:58 Carbon Dioxide 26 mmol/L (22-29) 04/26/24 13:58 Anion Gap 14.0 (5-19) 04/26/24 13:58 BUN 12 mg/dL (8-23) 04/26/24 13:58 Creatinine 1.2 mg/dL (0.7-1.2) 04/26/24 13:58 GFR Calculation 60.8 mL/min (90-130) L 04/26/24 13:58 Glucose 143 mg/dL (65-115) H 04/26/24 13:58 Calculated Osmolality 290 mOsm/kg (285-295) 04/26/24 13:58 Lactic Acid 1.1 mmol/L (0.5-2.2) 04/26/24 13:58 Calcium 9.0 mg/dL (8.5-10.5) 04/26/24 13:58 Total Bilirubin 0.5 mg/dL (0.15-1.2) 04/26/24 13:58 AST 15 U/L (0-40) 04/26/24 13:58 ALT 13 U/L (0-41) 04/26/24 13:58 Alkaline Phosphatase 80 U/L (40-130) 04/26/24 13:58 Creatine Kinase 167 U/L (39-308) 04/26/24 13:58 Total Protein 7.1 g/dL (6.6-8.7) 04/26/24 13:58 Albumin 3.8 g/dL (3.5-5.2) 04/26/24 13:58 Globulin 3.3 g/dL (1.3-4.6) 04/26/24 13:58 Urine Color Yellow (Yellow) 04/26/24 15:20 Urine Appearance Slightly cloudy (CLEAR) 04/26/24 15:20 Urine pH 6 (5-7) 04/26/24 15:20 Ur Specific [place] 1.020 (1.005-1.030) 04/26/24 15:20 Urine Protein 1+ (Negative) H 04/26/24 15:20 Urine Glucose (UA) Norm (Normal) 04/26/24 15:20 Urine Ketones 1+ (Negative) H 04/26/24 15:20 Urine Blood 3+ (Negative) H 04/26/24 15:20 Urine Nitrate Negative (Negative) 04/26/24 15:20 Urine Bilirubin 1+ (Negative) H 04/26/24 15:20 Urine Urobilinogen 1 mg/dL (Negative) H 04/26/24 15:20 Ur Leukocyte Esterase Negative (Negative) 04/26/24 15:20 Urine RBC 0-4 /hpf (0-2) H 04/26/24 15:20 Urine WBC 0-4 /hpf (0-5) H 04/26/24 15:20 Ur Squamous Epith Cells Rare /hpf (0-5) 04/26/24 15:20 Amorphous Sediment Not Reportable 04/26/24 15:20 Urine Bacteria Trace /hpf (NONE) 04/26/24 15:20 Hyaline Casts 0-4 /lpf H 04/26/24 15:20 All radiology interpretation(s) finalized by discharge Discharge Plan Discharge Patient Disposition: Home Clinical Impression: Venomous snake bite, Leg edema, left Condition: Stable Prescriptions: New diclofenac sodium 75 mg tablet,delayed release (DR/EC) 75 mg PO Q12H PRN (Reason: pain) Qty: 20 0RF No Action aspirin 325 mg tablet 325 mg PO DAILY@0800 albuterol sulfate [Ventolin HFA] 90 mcg/actuation HFA aerosol inhaler 2 puff INHALATION Q6H PRN (Reason: Shortness Of Breath) Qty: 8.5 5RF fluticasone propionate 50 mcg/actuation spray,suspension 1 spray intranasal DAILY PRN (Reason: allergy symptoms) Qty: 16 0RF Rx Instructions: administer into each nostril fluticasone propion-salmeterol [Advair Diskus] 250-50 mcg/dose blister with device 1 inh INHALATION BID 30 Days Qty: 60 5RF omeprazole 40 mg capsule,delayed release(DR/EC) 40 mg PO DAILY 90 Days Qty: 90 1RF topiramate 100 mg tablet 100 mg PO DAILY 90 Days Qty: 90 1RF Entresto 49-51 mg tablet 1 tab PO BID 30 Days Qty: 60 3RF spironolactone 25 mg tablet 25 mg PO DAILY Qty: 30 3RF Jardiance 10 mg tablet 10 mg PO DAILY Qty: 30 3RF hydrocodone-acetaminophen 5-325 mg tablet 1 tab PO Q6H PRN (Reason: Pain) Ranexa 500 mg Tablet Extended Release 12 Hr 500 mg PO BID Fish Oil 1,000 mg (120 mg-180 mg) Capsule 1 cap PO TID montelukast 10 mg tablet 10 mg PO DAILY Discharge Orders: Discharge ED (Routine); Ordered 04/26/24 Ordered By: Rylan Cruz Referrals: Damaris Akins FNP [Primary Care Provider] - Patient Instructions: Opioid Safety, Pain Management Activity Restrictions/Additional Instructions: Thank you for choosing [facility] for your healthcare needs today. It is very important that you follow up as instructed or that you return to the Emergency Department should you have concerns or if your condition changes or worsens in any way. You were seen today for sequela of a previous snakebite. The edema and muscle aches are typical after a snakebite. There is no evidence that you had a stroke. There is no evidence of a clot in the leg. Elevate the leg whenever possible you can use the diclofenac as needed for aches and pains as well. 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
[2024-04-26 14:05] LABS: Basophils % 0.5 %; Eosinophils # 0.1 10^3/uL (0.0-0.8); Eosinophils % 1.6 %; Hematocrit 39.2 % (37-53); Lymphocytes # 1.3 10^3/uL (0.8-4.8); Lymphocytes % 15.2 %; Mean Corpuscular HGB Conc 33.2 g/dL (30-55); Mean Corpuscular Hemoglobin 30.2 pg (27-33); Mean Platelet Volume 9.7 fL (7.4-10.4); Monocytes # 0.6 10^3/uL (0.2-0.9); Monocytes % 7.7 %; Neutrophils # 6.18 10^3/uL (1.8-7.7); Neutrophils % 74.6 %; Nucleated Red Blood Cells % 0 %; Platelet Count 200 10^3/cmm (157-399); Red Blood Count 4.31 10^6/uL (3.85-5.65); Red Cell Distribution Width 12.7 % (12.1-15.1); White Blood Count 8.28 10^3/uL (3.29-11.43)
[2024-04-26 14:27] LABS: Alanine Aminotransferase 13 U/L (0-41); Albumin Level 3.8 g/dL (3.5-5.2); Alkaline Phosphatase 80 U/L (40-130); Aspartate Amino Transferase 15 U/L (0-40); Blood Urea Nitrogen 12 mg/dL (8-23); Carbon Dioxide 26 mmol/L (22-29); Chloride 103 mmol/L (98-107); Creatine Phosphokinase 167 U/L (39-308); Creatinine Clr Calc Pharmacy 69.1097; Globulin 3.3 g/dL (1.3-4.6); Glomerular Filtration Rate 60.8 mL/min (90-130); Glucose 143 mg/dL (65-115); Osmolality Calculated 290 mOsm/kg (285-295); Sodium 139 mmol/L (136-145); Total Bilirubin 0.5 mg/dL (0.15-1.2); Total Protein 7.1 g/dL (6.6-8.7)
[2024-04-26 14:28] LABS: Lactic Sepsis W/Reflex 1.1 mmol/L (0.5-2.2)
--- NOTE | 2024-04-26 14:30 | USCV_ITS ---
James Yen Age: 64 Gender: M : 1960 Exam Date: 04/26/2024 14:37 Ordering Phys: Rylan Cruz DO Technologist: ENMANUEL Exam Location: [facility] – [place] Indication: S/P SNAKE BITE, LLE PAIN AND SWELLING HISTORY: Lower extremity pain. Lower extremity swelling. PROCEDURES: Venous duplex imaging was performed in only the left lower extremity. The following venous structures were evaluated: common femoral vein, profunda vein, proximal portion of the greater saphenous vein, superficial femoral vein, and the popliteal vein. In addition, the posterior tibial and peroneal trunk were evaluated. Serial compression, augmentation maneuvers, and spectral Doppler flow evaluation were performed. FINDINGS: No evidence of DVT seen in any vessel visualized at this time. CONCLUSIONS No evidence of left lower extremity DVT. Abilio Wyman MD (Electronically Signed) Final Date: 26 April 2024 16:32 S
--- NOTE | 2024-04-26 14:30 | CTR_ITS ---
PROCEDURE INFORMATION: Exam: CT Head Without Contrast Exam date and time: 04/26/2024 3:05 PM Age: 64 years old Clinical indication: Weakness, extremity; Patient HX: PT was bit by a copperhead snake on left ankle and now has right arm weakness; Additional info: R arm weakness TECHNIQUE: Imaging protocol: Computed tomography of the head without contrast. Radiation optimization: All CT scans at this facility use at least one of these dose optimization techniques: automated exposure control; mA and/or kV adjustment per patient size (includes targeted exams where dose is matched to clinical indication); or iterative reconstruction. COMPARISON: CT head wo con* [id number] 03/26/2020 1:44 PM RADIATION DOSE METRICS: Total DLP (mGy-cm): 1190 FINDINGS: Brain: No hemorrhage. No edema. Moderate diffuse cerebral atrophy and mild sequela of chronic small vessel ischemic disease. No mass effect. Cerebral ventricles: No ventriculomegaly. Paranasal sinuses: Visualized sinuses are unremarkable. No fluid levels. Mastoid air cells: Visualized mastoid air cells are well aerated. Bones: Unremarkable. No acute fracture. Soft tissues: Unremarkable. CT/CT head wo con* [id number] IMPRESSION: No acute intracranial abnormality.
--- NOTE | 2024-04-26 14:53 | PC.PHAR ---
PT HAS SEVERAL OLD FILL DATES ON MEDICATIONS HE STATES HE IS STILL TAKING. PT STATES HYDROCODONE WAS HIS 'S. NOT SURE WHAT HE MEANT BY THAT. LEFT NOTES IN PHARMACY COMMENTS.
[2024-04-26 15:18] VITALS: PULSE 76; O2SAT 94
[2024-04-26 15:45] VITALS: PULSE 76; O2SAT 94
[2024-04-26 15:55] LABS: Add Urine Microscopic? YES; Bilirubin Urine 1+ (Negative); Blood Urine 3+ (Negative); Glucose Urine UA Norm (Normal); Ketones Urine 1+ (Negative); Leukocyte Esterase Urine Negative (Negative); Nitrate Urine Negative (Negative); Protein Urine 1+ (Negative); Urine Appearance Slightly Cloudy (CLEAR); Urine Color Yellow (Yellow); Urobilinogen Urine 1 mg/dL (Negative); pH Urine 6 (5-7)
[2024-04-26 15:56] LABS: Bacteria Urine TRACE /hpf; Hyaline Casts Urine 0-4 /lpf; RBC Urine 0-4 /hpf (0-2); Squamous Epithelial Cell Urine RARE /hpf (0-5); WBC Urine 0-4 /hpf (0-5)
== END 2024-04-26 15:45 | disposition home or self-care (01) ==
PROVIDERS: Emergency Provider Family Medicine; PCP Nurse Practitioner
DX: T63.091A Toxic effect of venom of other snake, accidental (unintentional), initial encounter (principal); Z79.82 Long term (current) use of aspirin; Z72.0 Tobacco use; I11.0 Hypertensive heart disease with heart failure; I50.9 Heart failure, unspecified; I43 Cardiomyopathy in diseases classified elsewhere; E78.5 Hyperlipidemia, unspecified; Z95.810 Presence of automatic (implantable) cardiac defibrillator; Z95.1 Presence of aortocoronary bypass graft
CPT/HCPCS: 36415; 70450; 80053; 81001; 82550; 83605; 85025; 93971; 99284

== ENCOUNTER 2024-10-06 10:45 | Observation (INO) | payer MEDICARE, OTHER, SELFPAY ==
[2024-10-06 10:54] VITALS: BP 155/78; PULSE 87; RESP 17; TEMP 36.5; O2SAT 98
--- NOTE | 2024-10-06 10:54 | CT_ITS ---
WS: [id number] CT HEAD NONCONTRAST HISTORY: Possible stroke TECHNIQUE: Contiguous axial imaging performed through the brain. Bone and soft tissue windows. Sagitt al and coronal reformats reviewed. All CT scans at [facility] use at least one of these dose optimization techniques: automated exposure control; mA and/or kV adjustment per patient size (includ es targeted exams where dose is matched to clinical indication); or iterative reconstruction. DLP: 1109.18 mGy.cm COMPARISON: 04/26/2024 No acute intracranial hemorrhage, midline shift or mass effect. Mild volume loss and atrophy and small vessel disease. Prior lacunar infarct in the LEFT frontal lobe , centrum semiovale. No additional infarcts. Ventricles: Normal size with no hydrocephalus. No inferior displacement of the cerebellar tonsils. Paranasal sinuses: As visualized are clear. Mastoid air cells: Well pneumatized. Calvarium and scalp: Skull is intact with no soft tissue edema or swelling. CT/CT head wo con* [id number] IMPRESSION: 1. No acute intracranial hemorrhage or edema. 2. Mild volume loss and small vessel disease. No acute infarct. Notified Dr. Maher at 10/06/2024 11:19 AM.
--- NOTE | 2024-10-06 10:54 | CT_ITS ---
WS: [id number] CT ANGIOGRAM CEREBRAL AND CAROTID ARTERIES HISTORY: Possible stroke TECHNIQUE: CT angiogram is performed of the carotid and cerebral arteries. During arterial injection imaging is obtained from the skull vertex to the aortic arch in 1.25 mm imaging. Coronal and sagittal reformats are submitted. Additional multi planar reformats of the carotid and cerebral arteries are submitted, MIP imaging also reviewed. NASCET criteria utilized. All CT scans at [facility] us e at least one of these dose optimization techniques: automated exposure control; mA and/or kV adjust ment per patient size (includes targeted exams where dose is matched to clinical indication); or iter ative reconstruction. CONTRAST: Omnipaque 350; 100 mL IV. DLP: 524.08 mGy.cm COMPARISON: CT angiogram 06/17/2017. Prior carotid ultrasound 03/01/2024 Carotid Angiogram: Right carotid: Common carotid artery: Artifact at the base of the innominate artery. The innominate artery is tortuo us and intact. Internal carotid artery: Calcified plaque in the mid to distal ICA extending through the bifurcation. Calcified plaque and noncalcified plaque at the bifurcation. Stenosis has slightly increased in the prior study estimated between 50 and 60%. External carotid artery: Patent. Left carotid: Common carotid artery: Completely occluded. Internal carotid artery: Chronic complete occlusion. External carotid artery: Patent. Right vertebral artery: Very small caliber RIGHT vertebral artery. Similar appearance to the prior CT from 2016. This is not acute. Left vertebral artery: Small noncalcified plaque at the origin of the LEFT vertebral artery from the subclavian artery. Mild stenosis. Subclavian arteries: No stenosis or significant abnormality. Upper thorax: Normal. Thyroid gland: Normal. Osseous structures: Unremarkable. CEREBRAL ANGIOGRAM: Intracranial vertebral arteries: Small caliber RIGHT vertebral artery. Dominant LEFT vertebral artery . No interval change. Basilar artery: No significant stenosis or occlusion. No aneurysm. Intracranial Internal carotid arteries: Known complete occlusion LEFT intracranial ICA. 50 to 60% dinorah nosis cavernous RIGHT ICA. Heavy calcified plaque continues into the supraclinoid carotid artery. Dis debbie LEFT ICA becomes reconstituted through an intact [place]. Middle cerebral arteries: No cerebral arteries are both well opacified. Similar distribution of the d istal branches. Anterior cerebral arteries and ACOM: Normal. Posterior cerebral arteries and PCOM's: Normal posterior cerebral arteries. Posterior communicating a rteries are small caliber. But they are patent. Dural venous sinuses are normally enhancing. Mastoid air cells: Normal. Paranasal sinuses: Normal. Calvarium: Normal. CT/CT angio headneck* [id number] IMPRESSION: 1. 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 Limited reconstitution distally due to an intact [place]. 2. No thrombus or occlusion of the middle cerebral arteries. 3. Chronic small caliber RIGHT vertebral artery. 4. Increasing plaque in the RIGHT cervical bifurcation and in the intracranial carotid artery. Stenoses approaching 50 to 60%. Similar percent stenosis repor makayla on 03/01/2024 carotid ultrasound.
--- NOTE | 2024-10-06 10:54 | ECG_ITS ---
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 Measurements Intervals [place] Rate: 74 P: -1 AK: 165 QRS: 10 QRSD: 117 T: 141 QT: 382 QTc: 426 Interpretive Statements SINUS RHYTHM WITH SINUS ARRHYTHMIA INFERIOR MYOCARDIAL INFARCTION , PROBABLY OLD [40+ ms Q WAVE AND/OR ST/T ABNORMALITY IN II/aVF] MODERATE T-WAVE ABNORMALITY, CONSIDER LATERAL ISCHEMIA [-0.1+ mV T-WAVE IN I/aVL/V5/V6] Compared to ECG 11/18/2020 22:25:28 No significant changes Electronically Signed On 10-06-2024 21:57:28 REWINDER OPERATOR by Hemant Ruiz M.D. [email or web address]
--- NOTE | 2024-10-06 10:59 | ED_ITS ---
HPI - Neuro Symptoms/Deficit 2 General: Chief Complaint: Neuro Symptoms/Deficit Stated Complaint: stroke like symptoms Time Seen by Provider: 10/06/24 10:49 History of Present Illness: 64-year-old man with a history of hypert ension, coronary artery disease, cardiomyopathy with a pacemaker and defibrillator, 3hyperlipidemia who presents emergency room with strokelike symptoms. He says last night he developed right- sided weakness. He can walk but with difficulty. He cannot lift his leg off of the bed. He can only lift his arm up slightly. No slurred speech. No facial droop. No altered mental status. He says he had similar symptoms when he had a snake bite several months ago. So he did not think much of it last night but then today when he told his family member they had him come to the emergency room. No fevers. No cough. No chest pain. No abdominal pain. No nausea or vomiting. Related Data Home Medications Medication Instructions Recorded Confirmed montelukast 10 mg tablet 10 mg PO DAILY 04/26/24 10/06/24 Previous Rx's Medication Instructions Recorded topiramate 100 mg tablet 100 mg PO DAILY 90 days #90 tabs 12/06/23 sacubitril 49 mg-valsartan 51 mg 1 tab PO BID 30 days #60 tabs 02/10/24 tablet (Entresto) spironolactone 25 mg tablet 25 mg PO DAILY #30 tabs 02/11/24 Allergies Allergy/AdvReac Type Severity Reaction Status Date / Time No Known Allergies Allergy Verified 04/26/24 09:43 Review of Systems 2 Narrative: Constitutional symptoms: Negative except as documented in HPI. Skin symptoms: Negative except as documented in HPI. Eye symptoms: Negative except as documented in HPI. ENMT symptoms: Negative except as documented in HPI. Respiratory symptoms: Negative except as documented in HPI. Cardiovascular symptoms: Negative except as documented in HPI. Gastrointestinal symptoms: Negative except as documented in HPI. Genitourinary symptoms: Negative except as documented in HPI. Musculoskeletal symptoms: Negative except as documented in HPI. Neurologic symptoms: Negative except as documented in HPI. Psychiatric symptoms: Negative except as documented in HPI. Endocrine symptoms: Negative except as documented in HPI. PFSH ED 2 PFSH: Medical History Urolithiasis Multi stone former. 2 punctate stones remaining left kidney. Remote surgical intervention. History of 2019 novel coronavirus disease (COVID-19) Lower urinary tract symptoms Nocturia Abdominal pain Restless leg syndrome Chronic migraine Asthma No past tobacco use, history of secondhand smoke exposure Bronchitis after surgery GERD (gastroesophageal reflux disease) Cardiomyopathy HTN (hypertension), benign ASHD (arteriosclerotic heart disease) Hyperlipidemia CHF (congestive heart failure) Bilateral carotid artery stenosis ICD (implantable cardioverter-defibrillator) in place Patient's ICD was interrogated today. There was no ICD discharges. The pacing function appears to be appropriate. Surgical History Status post colonoscopy (10/10/20) repeat in 10 years S/P extracorporeal shock wave therapy S/P laparoscopic appendectomy (~02/24/20) History of ankle surgery H/O right wrist surgery History of mitral valve repair Hx of CABG History of CEA (carotid endarterectomy) Family History Mother Anesthesia complication Cancer Chronic kidney disease (CKD) Lung disease Stroke Father Bleeding disorder Clotting disorder CAD (coronary artery disease) Cancer Dementia Diabetes Grandfather CAD (coronary artery disease) Family/Other CAD (coronary artery disease) Chronic kidney disease (CKD) Other Hypertension Denies family history of Suicide Social History Smoking and tobacco/nicotine status: current every day tobacco/nicotine user Alcohol intake: never Substance/Drug Use: never Marital status: Current occupational status: retired Physical Exam 2 Narrative: EXAM NARRATIVE: General: Alert, no acute distress. Skin: Warm, dry. Head: Normocephalic, atraumatic. Neck: Supple, trachea midline. Eye: Extraocular movements are intact. Ears, nose, mouth and throat: mucosa moist. Cardiovascular: Regular, Normal peripheral perfusion. Respiratory: Lungs are clear to auscultation, respirations are non-labored, breath sounds are equal, Symmetrical chest wall expansion. Gastrointestinal: Soft, Nontender, Non distended Musculoskeletal: Normal ROM, no deformity. Neurological: Alert and oriented, right arm and leg weakness. No dysarthria. No facial droop. No confusion. No sensory deficits. Psychiatric: Cooperative, appropriate mood & affect. Course 2 Vital Signs: Vital signs: Vital Signs Temperature 97.7 F 10/06/24 10:54 Pulse Rate 72 10/06/24 12:06 Respiratory Rate 16 10/06/24 12:06 Blood Pressure 131/84 10/06/24 12:06 Pulse Oximetry 95 10/06/24 12:06 Oxygen Delivery Me thod Room Air 10/06/24 12:06 MDM - Neuro Symptoms/Deficit Medical Decision Making Medical decision making: Differential diagnosis for patient with focal neurologic deficit(s) includes but not limited to and based on the above HPI, review of systems and physical exam: ischemic stroke, hemorrhagic stroke and embolic stroke secondary to atrial fibrillation), TIA, Kearney's palsey, metabolic encephalopathy with previous stroke. Orders placed to evaluate differential diagnosis based on the above differential, HPI and physical exam MDM: Patient not in the window for TNKase, but if this is major occlusion he would be in the window for thrombectomy so a stroke alert was called. NIH Stroke Scale/Score (NIHSS) from [email or web address] on 10/06/2024 All calculations should be rechecked by clinician prior to use RESULT SUMMARY: 3 points NIH Stroke Scale INPUTS: 1A: Level of consciousness ?> 0 = Alert; keenly responsive 1B: Ask month and age ?> 0 = Both questions right 1C: 'Blink eyes' & 'squeeze hands' ?> 0 = Performs both tasks 2: Horizontal extraocular movements ?> 0 = Normal 3: Visual sweeney ?> 0 = No visual loss 4: Facial palsy ?> 0 = Normal symmetry 5A: Left arm motor drift ?> 0 = No drift for 10 seconds 5B: Right arm motor drift ?> 1 = Drift, but doesn't hit bed 6A: Left leg motor drift ?> 0 = No drift for 5 seconds 6B: Right leg motor drift ?> 2 = Some effort against gravity 7: Limb Ataxia ?> 0 = No ataxia 8: Sensation ?> 0 = Normal; no sensory loss 9: Language/aphasia ?> 0 = Normal; no aphasia 10: Dysarthria ?> 0 = Normal 11: Extinction/inattention ?> 0 = No abnormality CT head: No acute intracranial process. no intracranial hemorrhage, no evidence of infarct. no evidence of acute fracture.This was reviewed and interpreted by myself the ER physician. EKG: Time 1139. Rate 74. Normal sinus rhythm, No ST-T changes, no ectopy, normal AK & QRS intervals, This was reviewed and interpreted by myself the ER physician at 1135. 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 Intact [place]. 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 No leukocytosis. No anemia. Sodium is normal. BUN and creatinine are 17 and 1.5 which is slightly above his baseline but he does seem to have some chronic kidney disease. Several times in the past he has been higher than 1.5. Liver enzymes are normal. Urinalysis does not show infection. Consultation: I have consulted Dr. Galvan with neurology. We have discussed the findings and previous findings. She recommends interrogation of pacemaker to determine if the patient has had any atrial fibrillation. She recommends anticoagulation with Plavix and aspirin and the addition of a statin if he is not already on 1. She also recommends an echocardiogram. Recommends admission. PT evaluation and possible rehab either at home or in a rehabilitation unit. Consultation: I have had [employer] interrogate the pacemaker. This shows 7 episodes of nonsustained V. tach. Also 17 episodes of atrial fibrillation it appears. This likely indicates the patient needs to be on full anticoagulation with Eliquis or equivalent. RICHARD?DS?-VASc Score for Atrial Fibrillation Stroke Risk from [email or web address] on 10/06/2024 All calculations should be rechecked by clinician prior to use RESULT SUMMARY: 6 points Stroke risk was 9.7% per year in >90,000 patients (the [place] Atrial Fibrillation Cohort Study) and 13.6% risk of stroke/TIA/systemic embolism. INPUTS: Age ?> 1 = 65-74 Sex ?> 0 = Male CHF history ?> 1 = Yes Hypertension history ?> 1 = Yes Stroke/TIA/thromboembolism history ?> 2 = Yes Vascular disease history (prior HI, peripheral artery disease, or aortic plaque) ?> 1 = Yes Diabetes history ?> 0 = No Anticoagulation?should be started?in patients with a IRCHARD?DS?-VASc score of?>=2 if male or >=3 if female. I reviewed the patient's medical record. I have read through his cardiology notes and reviewed old films. He had been on a statin but I do not show that he is now. He is unsure. Reexamination: Patient continues to have weakness in his right arm and hand. I did observe him raise his hand to his face on the right side and scratch his face. However he still cannot lift his leg off the bed. Family says he was very difficult to get to the car because he could not use his right leg. No altered mental status. No increased work of breathing. Consultation: I spoke with Dr. Alfonso who is on-call for the hospitalist service who agrees to admission to observation. She is ordering an echocardiogram. Assessment and plan: Acute CVA Right-sided weakness Atrial fibrillation Congestive heart failure Hypertension Coronary artery disease ?Patient will need to be started on anticoagulation, either Plavix and aspirin or given new history of A-fib likely Eliquis. If not on statin he needs to be restarted. Echocardiogram is being ordered. -I discussed the patient with the hospitalist on-call who is admitting the patient. - Discussed findings and plan with patient. Answered any questions. - All laboratory values were reviewed and interpreted personally by myself, the ER physician - All imaging was reviewed and interpreted personally by myself, the ER physician. - Evaluation and treatment of this problem were appropriate in the emergency setting Critical care -I spent a total of >35 minutes of critical care time managing the patient, independent of any other practitioner. -The time involved in the performance of separately reportable procedures was not counted towards critical care time. Lab Data 10/06/24 11:00 10/06/24 11:[address] 10/06/24 10:54 IMPRESSION: 1. No acute intracranial hemorrhage or edema. 2. Mild volume loss and small vessel disease. No acute infarct. Notified Dr. Maher at 10/06/2024 11:19 AM. Head/Neck CTA 10/06/24 10:54 IMPRESSION: 1. 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 Limited reconstitution distally due to an intact [place] of [place]. 2. No thrombus or occlusion of the middle cerebral arteries. 3. Chronic small caliber RIGHT vertebral artery. 4. Increasing plaque in the RIGHT cervical bifurcation and in the intracranial carotid artery. Stenoses approaching 50 to 60%. Similar percent stenosis reported on 03/01/2024 carotid ultrasound. Chest X-Ray 10/06/24 12:35 IMPRESSION: 1. No acute finding. Laboratory Results WBC 7.08 10^3/uL (3.29-11.43) 10/06/24 11:00 RBC 5.29 10^6/uL (3.85-5.65) 10/06/24 11:00 Hgb 15.80 g/dL (11.27-16.99) 10/06/24 11:00 Hct 48.3 % (37-53) 10/06/24 11:00 MCV 91.3 fl (82-101) 10/06/24 11:00 MCH 29.9 pg (27-33) 10/06/24 11:00 MCHC 32.7 g/dL (30-55) 10/06/24 11:00 RDW 12.6 % (12.1-15.1) 10/06/24 11:00 Plt Count 236 10^3/cmm (157-399) 10/06/24 11:00 MPV 10.2 fL (7.4-10.4) 10/06/24 11:00 Neut % (Auto) 60.3 % 10/06/24 11:00 Lymph % (Auto) 29.7 % 10/06/24 11:00 [place] % (Auto) 7.6 % 10/06/24 11:00 Eos % (Auto) 1.3 % 10/06/24 11:00 Baso % (Auto) 0.7 % 10/06/24 11:00 Neut # (Auto) 4.27 10^3/uL (1.8-7.7) 10/06/24 11:00 Lymph # (Auto) 2.1 10^3/uL (0.8-4.8) 10/06/24 11:00 [place] # (Auto) 0.5 10^3/uL (0.2-0.9) 10/06/24 11:00 Eos # (Auto) 0.1 10^3/uL (0.0-0.8) 10/06/24 11:00 Baso # (Auto) 0.1 10^3/uL (0.0-0.1) 10/06/24 11:00 Nucleated RBC % (auto) 0 % 10/06/24 11:00 Nucleated RBCs # 0.0 /100WBC 10/06/24 11:00 PT 12.20 SECONDS (12.1-14.9) 10/06/24 11:00 INR 0.88 (0.8-1.2) 10/06/24 11:00 APTT 29.9 SECONDS (23.9-36.7) 10/06/24 11:00 Sodium 139 mmol/L (136-145) 10/06/24 11:00 Potassium 4.7 mmol/L (3.5-5.1) 10/06/24 11:00 Chloride 105 mmol/L (98-107) 10/06/24 11:00 Carbon Dioxide 25 mmol/L (22-29) 10/06/24 11:00 Anion Gap 13.7 (5-19) 10/06/24 11:00 BUN 17 mg/dL (8-23) 10/06/24 11:00 Creatinine 1.5 mg/dL (0.7-1.2) H 10/06/24 11:00 GFR Calculation 47.0 mL/min (90-130) L 10/06/24 11:00 Glucose 123 mg/dL (65-115) H 10/06/24 11:00 POC Glucose 105 mg/dL (70-110) 10/06/24 10:53 Calculated Osmolality 291 mOsm/kg (285-295) 10/06/24 11:00 Calcium 9.7 mg/dL (8.5-10.5) 10/06/24 11:00 Total Bilirubin 0.4 mg/dL (0.15-1.2) 10/06/24 11:00 AST 15 U/L (0-40) 10/06/24 11:00 ALT 13 U/L (0-41) 10/06/24 11:00 Alkaline Phosphatase 108 U/L (40-130) 10/06/24 11:00 Total Protein 8.1 g/dL (6.6-8.7) 10/06/24 11:00 Albumin 4.5 g/dL (3.5-5.2) 10/06/24 11:00 Globulin 3.6 g/dL (1.3-4.6) 10/06/24 11:00 Urine Color Yellow (Yellow) 10/06/24 11:30 Urine Appearance Clear (CLEAR) 10/06/24 11:30 Urine pH 7.5 (5-7) 10/06/24 11:30 Ur Specific Walker 1.024 (1.005-1.030) 10/06/24 11:30 Urine Protein 1+ (Negative) A 10/06/24 11:30 Urine Glucose (UA) Negative (Normal) 10/06/24 11:30 Urine Ketones Negative (Negative) 10/06/24 11:30 Urine Blood Negative (Negative) 10/06/24 11:30 Urine Nitrate Negative (Negative) 10/06/24 11:30 Urine Bilirubin Negative (Negative) 10/06/24 11:30 Urine Urobilinogen 1.0 mg/dL (Negative) 10/06/24 11:30 Ur Leukocyte Esterase Negative (Negative) 10/06/24 11:30 Urine RBC 0-2 /hpf (0-2) 10/06/24 11:30 Urine WBC 0-5 /hpf (0-5) 10/06/24 11:30 Ur Squamous Epith Cells 0-5 /hpf (0-5) 10/06/24 11:30 Amorphous Sediment Not Reportable 10/06/24 11:30 Urine Bacteria None seen /hpf (NONE) 10/06/24 11:30 Hyaline Casts 0.40 /lpf 10/06/24 11:30 All radiology interpretation(s) finalized by discharge Discharge Plan Discharge Patient Disposition: Placed in Observation Clinical Impression: Cerebrovascular accident, Ischemic cardiomyopathy, ICD (implantable cardioverter-defibrillator) in place, Bilateral carotid artery stenosis, HTN (hypertension), benign, Right sided weakness, Atrial fibrillation Cardiomyopathy Qualifiers: Cardiomyopathy type: ischemic Qualified Code(s): I25.5 - Ischemic cardiomyopathy CHF (congestive heart failure) Qualifiers: Heart failure type: systolic Heart failure chronicity: chronic Qualified Code(s): I50.22 - Chronic systolic (congestive) heart failure Hyperlipidemia Qualifiers: Hyperlipidemia type: mixed hyperlipidemia Qualified Code(s): E78.2 - Mixed hyperlipidemia Coding Level of Care Code 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
[2024-10-06 11:04] LABS: Glucose Point of Care 105 mg/dL (70-110)
[2024-10-06] MEDS: iohexol 350 mg/mL 500 mL Btl (per mL) IV (11:05)
--- NOTE | 2024-10-06 11:12 | PC.NURSE ---
this nurse assumed pt care at 1100.
[2024-10-06 11:13] LABS: Basophils # 0.1 10^3/uL (0.0-0.1); Basophils % 0.7 %; Eosinophils # 0.1 10^3/uL (0.0-0.8); Eosinophils % 1.3 %; Hematocrit 48.3 % (37-53); Lymphocytes # 2.1 10^3/uL (0.8-4.8); Lymphocytes % 29.7 %; Mean Corpuscular HGB Conc 32.7 g/dL (30-55); Mean Corpuscular Hemoglobin 29.9 pg (27-33); Mean Corpuscular Volume 91.3 fl (82-101); Mean Platelet Volume 10.2 fL (7.4-10.4); Monocytes # 0.5 10^3/uL (0.2-0.9); Monocytes % 7.6 %; Neutrophils # 4.27 10^3/uL (1.8-7.7); Neutrophils % 60.3 %; Nucleated Red Blood Cells % 0 %; Platelet Count 236 10^3/cmm (157-399); Red Blood Count 5.29 10^6/uL (3.85-5.65); Red Cell Distribution Width 12.6 % (12.1-15.1); White Blood Count 7.08 10^3/uL (3.29-11.43)
[2024-10-06 11:47] LABS: Alanine Aminotransferase 13 U/L (0-41); Albumin Level 4.5 g/dL (3.5-5.2); Alkaline Phosphatase 108 U/L (40-130); Anion Gap 13.7 (5-19); Aspartate Amino Transferase 15 U/L (0-40); Blood Urea Nitrogen 17 mg/dL (8-23); Calcium 9.7 mg/dL (8.5-10.5); Carbon Dioxide 25 mmol/L (22-29); Chloride 105 mmol/L (98-107); Creatinine Clr Calc Pharmacy 55.9178; Globulin 3.6 g/dL (1.3-4.6); Glucose 123 mg/dL (65-115); Osmolality Calculated 291 mOsm/kg (285-295); Potassium 4.7 mmol/L (3.5-5.1); Sodium 139 mmol/L (136-145); Total Bilirubin 0.4 mg/dL (0.15-1.2); Total Protein 8.1 g/dL (6.6-8.7)
[2024-10-06 11:56] LABS: Bilirubin Urine Negative (Negative); Blood Urine Negative (Negative); Glucose Urine UA Negative (Normal); Ketones Urine Negative (Negative); Leukocyte Esterase Urine Negative (Negative); Nitrate Urine Negative (Negative); Protein Urine 1+ (Negative); Specific Gravity, Urine 1.024 (1.005-1.030); Urine Appearance Clear (CLEAR); Urine Color Yellow (Yellow); pH Urine 7.5 (5-7)
[2024-10-06 11:58] LABS: Bacteria Urine None Seen /hpf; RBC Urine 0-2 /hpf (0-2); Squamous Epithelial Cell Urine 0-5 /hpf (0-5); WBC Urine 0-5 /hpf (0-5)
[2024-10-06 11:59] LABS: INR 0.88 (0.8-1.2)
[2024-10-06 12:00] LABS: Partial Thromboplastin Time 29.9 SECONDS (23.9-36.7)
[2024-10-06 12:06] VITALS: BP 131/84; PULSE 72; RESP 16; O2SAT 95
--- NOTE | 2024-10-06 12:35 | XR_ITS ---
WS: [id number] Exam: XR chest 1V portable [id number] Date/Time of Exam: 10/06/2024 12:35 PM Reason For Exam: Weakness Comparison 11/18/2020. The lungs are clear and fully inflated. Heart size is normal. The mediastinum is normal in contour. A n ICD superimposes the LEFT chest. Signs of median sternotomy and cardiac valve replacement and coron laury artery bypass. LEFT apical pleural thickening. Surgical clips in the LEFT neck. Bony structures a ppear normal. No pleural effusion. XR/XR chest 1V portable [id number] IMPRESSION: 1. No acute finding.
--- NOTE | 2024-10-06 12:58 | P.HP_ITS ---
Providers/Chief Complaint 2 Primary Care Provider: Damaris Akins APN Chief Complaint: stroke like symptoms History of Present Illness James Yen is a 64 year old male With past medical history of coronary artery stenosis bilaterally, CHF hyperlipidemia hypertension, ICD in place, cardiomyopathy, systolic heart failure EF 35% presented to the hospital today with complaint of right-sided weakness that he first noticed yesterday night. He was sitting on the sofa and when he tried to get up he could not due to right-sided weakness. Did not experience any numbness at the time however does state that he was weak. As time goes on the weakness is improving but has not completely resolved yet. Does not take a statin anymore but used to in the past. Has had a headache and does have a history of migraines. He takes Topamax for that. At this time he is resting comfortably bed and does have mild right-sided neurological focal deficits. Denies nausea vomiting diarrhea shortness of breath, chest pain or any other symptoms at this time. Denies any difficulty swallowing. present at bedside. In the ER his his maker was interrogated and did show bouts of intermittent atrial fibrillation. Medications/Allergies Home Medications Medication Instructions Recorded Confirmed Last Taken Type topiramate 100 mg tablet 100 mg PO DAILY 90 days #90 tabs 12/06/23 10/06/24 Unknown Rx sacubitril 49 mg-valsartan 51 mg 1 tab PO BID 30 days #60 tabs 02/10/24 10/06/24 04/25/24 Rx tablet (Entresto) spironolactone 25 mg tablet 25 mg PO DAILY #30 tabs 02/11/24 10/06/24 04/25/24 Rx montelukast 10 mg tablet 10 mg PO DAILY 04/26/24 10/06/24 04/25/24 History Allergies Allergy/AdvReac Type Severity Reaction Status Date / Time No Known Allergies Allergy Verified 04/26/24 09:43 PFSH Acute 2 PFSH: Medical History Urolithiasis Multi stone former. 2 punctate stones remaining left kidney. Remote surgical intervention. History of 2019 novel coronavirus disease (COVID-19) Lower urinary tract symptoms Nocturia Abdominal pain Restless leg syndrome Chronic migraine Asthma No past tobacco use, history of secondhand smoke exposure Bronchitis after surgery GERD (gastroesophageal reflux disease) Cardiomyopathy HTN (hypertension), benign ASHD (arteriosclerotic heart disease) Hyperlipidemia CHF (congestive heart failure) Bilateral carotid artery stenosis ICD (implantable cardioverter-defibrillator) in place Patient's ICD was interrogated today. There was no ICD discharges. The pacing function appears to be appropriate. Surgical History Status post colonoscopy (10/10/20) repeat in 10 years S/P extracorporeal shock wave therapy S/P laparoscopic appendectomy (~02/24/20) History of ankle surgery H/O right wrist surgery History of mitral valve repair Hx of CABG History of CEA (carotid endarterectomy) Family History Mother Anesthesia complication Cancer Chronic kidney disease (CKD) Lung disease Stroke Father Bleeding disorder Clotting disorder CAD (coronary artery disease) Cancer Dementia Diabetes Grandfather CAD (coronary artery disease) Family/Other CAD (coronary artery disease) Chronic kidney disease (CKD) Other Hypertension Denies family history of Suicide Social History Smoking and tobacco/nicotine status: current every day tobacco/nicotine user Alcohol intake: never Substance/Drug Use: never Marital status: Current occupational status: retired Vitals/I&O/Wt Last Vital Signs Temp 97.7 F 10/06/24 10:54 Pulse 72 10/06/24 12:06 Resp 16 10/06/24 12:06 BP 131/84 10/06/24 12:06 Pulse Ox 95 10/06/24 12:06 O2 Del Method Room Air 10/06/24 12:06 Weight last 48 hrs Weight 95.254 kg Physical Exam 2 Narrative: General: Alert oriented x3, patient seen sitting up in bed HEENT: Normocephalic, atraumatic, EOMI, breathing room air Cardio: Regular rate rhythm, normal S1-S2, sinus rhythm on monitor Respiratory: Good bilateral air entry, no wheezes no rhonchi appreciated GI: Abdomen soft, nontender, nondistended, bowel sounds + Behavior: Appropriate and cooperative Extremities:no edema, no cyanosis neuro: right upper and lower extremity weakness present 4 out of 5 compared to left side. No other focal deficits at this time. Sensation intact, cranial nerves intact. Did not test ambulation due to risk of fall Data 10/06/24 11:00 10/06/24 11:00 A&P Assessment and plan (1) HTN (hypertension), benign: (2) CHF (congestive heart failure): Qualifiers: Heart failure type: systolic Heart failure chronicity: chronic Qualified Code(s): I50.22 - Chronic systolic (congestive) heart failure (3) Cardiomyopathy: Qualifiers: Cardiomyopathy type: ischemic Qualified Code(s): I25.5 - Ischemic cardiomyopathy (4) Ischemic cardiomyopathy: (5) ICD (implantable cardioverter-defibrillator) in place: (6) Atrial fibrillation: (7) Bilateral carotid artery stenosis: (8) Hyperlipidemia: Qualifiers: Hyperlipidemia type: mixed hyperlipidemia Qualified Code(s): E78.2 - Mixed hyperlipidemia (9) Cerebrovascular accident: (10) TIA (transient ischemic attack): Plan #TIA vs. Stroke #Right sided weakness #HLD #HTN #CHF, compensated #ICD in place #B/L carotid artery stenosis #New onset afib - check tsh, lipid panel, hba1c - ct head neg for bleed or stroke - check mri brain without contrast - PT/OT, dysphagia screen - Afib noted on ICD interrogation, start pt on eliquis - Continue aspirin, eliquis - Allow permissive htn - pt out of window for tpa and symptoms vague as per ER doc however he still has right sided weakness. ER doc discussed with on-call neurologist - check echo - hold entresto, spironalatone - hold topamax - monitor in hospital - place on telemetry - start atorvastatin 80 daily full code dvt ppx: eliquis Attestations 2 Medical Necessity Statement*: observation , anticipate < 48 hours Diagnoses HTN (hypertension), benign I10 Chronic systolic congestive heart failure I50.22 Heart failure type: systolic Heart failure chronicity: chronic Ischemic cardiomyopathy I25.5 Cardiomyopathy type: ischemic Ischemic cardiomyopathy I25.5 ICD (implantable cardioverter-defibrillator) in place Z95.810 Atrial fibrillation I48.91 Bilateral carotid artery stenosis I65.23 Mixed hyperlipidemia E78.2 Hyperlipidemia type: mixed hyperlipidemia Cerebrovascular accident I63.9 TIA (transient ischemic attack) G45.9
--- NOTE | 2024-10-06 12:59 | USCV_ITS ---
Dewaynedanie Almassaeid Age: 64 Gender: M : 1960 Exam Date: 10/06/2024 17:48 Ordering Phys: Lili Alfonso MD Technologist: Ronnie Pak Exam Location: [facility] [place] Indication: TIA BP: 110 / 70 HR: 70 Rhythm: Sinus Technical Quality: Adequate MEASUREMENTS (Male / Female) Normal Values 2D ECHO LV Diastolic Diameter PLAX 4.4 cm 4.2 - 5.9 / 3.9 - 5.3 cm IVS Diastolic Thickness 1.1 cm 0.6 - 1.0 / 0.6 - 0.9 cm IVS Systolic Thickness 1.2 cm LVPW Diastolic Thickness 1.6 cm 0.6 - 1.0 / 0.6 - 0.9 cm LVPW Systolic Thickness 2.3 cm LVOT Diameter 2.0 cm LV Ejection Fraction 2D Teich 25.1 % LV Ejection Fraction MOD 4C 32.4 % LV Ejection Fraction MOD 2C 32.2 % LV Ejection Fraction 2C AL 32.0 % LA Diameter 3.8 cm RA Systolic Volume 4C AL 28.4 ml RA Systolic Volume 4C MOD 27.4 ml LA Sys Volume AL 45.9 cm cubed LA Sys Volume Index AL 21.0 cm cubed/m squared Aorta at Sinotubular Diameter 2.0 cm IVC Diameter 1.7 cm M-MODE LA Ao Ratio MM 1.3 AV Cusp Separation MM 1.5 cm DOPPLER AV Peak Velocity 213.3 cm/s LVOT Peak Velocity 50.0 cm/s AV Area Cont Eq vti 0.8 cm squared AV Area Cont Eq pk 0.8 cm squared MV Peak Velocity 127.0 cm/s MV Area PHT 2.8 cm squared Mitral E to A Ratio 0.7 TV Peak Velocity 219.5 cm/s TR Peak Velocity 220.5 cm/s TR Peak Gradient 19.4 mmHg TR Mean Velocity 202.0 cm/s TR Mean Gradient 16.6 mmHg TR Velocity Time Integral 66.6 cm PV Peak Velocity 96.0 cm/s RV Ejection Time 0.2 s FINDINGS Left Ventricle Diffuse hypokinesia of the left ventricle with ejection fraction of 32%. Mildly dilated LV cavity. Eccentric left-ventricular hypertrophy. Thinned out septum and inferior wall.Grade I/IV diastolic dysfunction (abnormal relaxation filling pattern), normal to mildly elevated filling pressures. Right Ventricle Pacemaker/defibrillator wire in the right ventricle Right Atrium Pacemaker/defibrillator wire in the right atrium Left Atrium Mildly increased left atrial size. Mitral Valve Moderate mitral annular calcification Aortic Valve Thickened aortic valve. Aortic valve sclerosis. Tricuspid Valve Trace tricuspid valve regurgitation. PA pressure estimation was difficult because of the poor Doppler signals Pulmonic Valve Pulmonic valve not well visualized. Pericardium No pericardial effusion. Aorta Normal aortic annulus size. IVC Inferior vena cava not visualized. CONCLUSIONS Diffuse hypokinesia of the left ventricle with ejection fraction of 32%. Mildly dilated LV cavity. Eccentric left-ventricular hypertrophy. Thinned out septum and inferior wall.Grade I/IV diastolic dysfunction (abnormal relaxation filling pattern), normal to mildly elevated filling pressures. Mildly increased left atrial size. Moderate mitral annular calcification. Aortic valve sclerosis. PA pressure estimation was difficult because of the poor Doppler signals. There is no pericardial effusion. Compared to the study from 03/01/2024, there is slight improvement in the LV ejection fraction from 25 to 32% Dr Cathy Hernandez MD [facility] (Electronically Signed) Final Date: 06 October 2024 19:34 S
[2024-10-06] MEDS: heparin 5,000 unit/mL INJ 1 mL 5000 UNIT SUBCUT (13:46)
[2024-10-06 14:15] LABS: Estmated Average Glucose 126
[2024-10-06 14:18] VITALS: BP 112/53; PULSE 74; RESP 16; O2SAT 99
[2024-10-06 14:48] LABS: Chol HDL Ratio 8.43 mg/dL (1.0-5.00); Cholesterol 312 mg/dL (0-200); HDL Cholesterol 37 mg/dL (60-100); LDL Cholesterol Calculated 236 mg/dL (50-129); LDL HDL Ratio 6.38 RATIO (0.00-3.22); Triglycerides 196 mg/dL (0-150); Vitamin B12 314 pg/mL (232-1245)
[2024-10-06 14:54] LABS: Thyroid Stimulating Hormone 2.85 uIU/mL (0.27-4.20)
[2024-10-06 15:30] VITALS: BP 110/70; PULSE 75; RESP 14; O2SAT 98
[2024-10-06 15:35] VITALS: BP 110/70; PULSE 75; RESP 16; O2SAT 99
[2024-10-06 16:11] VITALS: BMI 31.0
[2024-10-06 20:00] VITALS: BP 134/61; PULSE 70; RESP 18; TEMP 36.8; O2SAT 95
[2024-10-06] MEDS: apixaban 5 mg Tablet PO (20:31)
[2024-10-06] MEDS: atorvastatin 40 mg Tablet 80 MG PO (20:31)
[2024-10-07] VITALS: BP 104/70; PULSE 70; RESP 17; TEMP 36.6; O2SAT 97
[2024-10-07] MEDS: heparin 5,000 unit/mL INJ 1 mL 5000 UNIT SUBCUT (00:25)
[2024-10-07 04:53] LABS: Basophils # 0.1 10^3/uL (0.0-0.1); Eosinophils # 0.1 10^3/uL (0.0-0.8); Eosinophils % 2.2 %; Hematocrit 46.3 % (37-53); Lymphocytes # 2.2 10^3/uL (0.8-4.8); Lymphocytes % 34.9 %; Mean Corpuscular HGB Conc 32.8 g/dL (30-55); Mean Corpuscular Hemoglobin 29.9 pg (27-33); Mean Platelet Volume 10.3 fL (7.4-10.4); Monocytes # 0.6 10^3/uL (0.2-0.9); Monocytes % 10.2 %; Neutrophils # 3.22 10^3/uL (1.8-7.7); Neutrophils % 51.2 %; Nucleated Red Blood Cells % 0 %; Platelet Count 225 10^3/cmm (157-399); Red Blood Count 5.09 10^6/uL (3.85-5.65); Red Cell Distribution Width 12.6 % (12.1-15.1); White Blood Count 6.28 10^3/uL (3.29-11.43)
[2024-10-07 05:16] LABS: Anion Gap 15.3 (5-19); Blood Urea Nitrogen 13 mg/dL (8-23); Calcium 9.5 mg/dL (8.5-10.5); Carbon Dioxide 21 mmol/L (22-29); Chloride 105 mmol/L (98-107); Creatinine Clr Calc Pharmacy 64.5205; Glomerular Filtration Rate 55.4 mL/min (90-130); Glucose 120 mg/dL (65-115); Magnesium 2.3 mg/dL (1.7-2.3); Osmolality Calculated 285 mOsm/kg (285-295); Potassium 4.3 mmol/L (3.5-5.1); Sodium 137 mmol/L (136-145)
[2024-10-07 07:37] VITALS: BP 125/74; PULSE 72; RESP 16; TEMP 36.4; O2SAT 97
[2024-10-07] MEDS: apixaban 5 mg Tablet PO (09:32)
[2024-10-07] MEDS: aspirin 81 mg EC Tablet PO (09:32)
[2024-10-07 11:50] VITALS: BP 126/71; PULSE 81; RESP 18; TEMP 36.4; O2SAT 97
--- NOTE | 2024-10-07 12:49 | P.DS_ITS ---
Discharge Providers Date of Admission: 10/06/24 14:35 Date of Discharge: October 07, 2024 Attending Provider at Admission: Lili Alfonso MD Attending Provider at Discharge: Lili Alfonso MD Primary Care Provider: Damaris Akins APN Diagnoses at Discharge Discharge Diagnosis (1) HTN (hypertension), benign: Status: Acute (2) CHF (congestive heart failure): Status: Acute Qualifiers: Heart failure chronicity: chronic Heart failure type: systolic Qualified Code(s): I50.22 - Chronic systolic (congestive) heart failure (3) Cardiomyopathy: Status: Acute Qualifiers: Cardiomyopathy type: ischemic Qualified Code(s): I25.5 - Ischemic cardiomyopathy (4) Ischemic cardiomyopathy: Status: Acute (5) ICD (implantable cardioverter-defibrillator) in place: Status: Acute Permanent problem details: Patient's ICD was interrogated today. There was no ICD discharges. The pacing function appears to be appropriate. (6) Atrial fibrillation: Status: Acute (7) Bilateral carotid artery stenosis: Status: Acute (8) Hyperlipidemia: Status: Acute Qualifiers: Hyperlipidemia type: mixed hyperlipidemia Qualified Code(s): E78.2 - Mixed hyperlipidemia (9) Cerebrovascular accident: Status: Acute (10) TIA (transient ischemic attack): Status: Acute Reason for Visit Reason for Visit: stroke like symptoms Hospital Course Hospital Course James Yen is a 64 year old male With past medical history of coronary artery stenosis bilaterally, CHF hyperlipidemia hypertension, ICD in place, cardiomyopathy, systolic heart failure EF 35% presented to the hospital today with complaint of right-sided weakness that he first noticed yesterday night. He was sitting on the sofa and when he tried to get up he could not due to right-sided weakness. Did not experience any numbness at the time however does state that he was weak. As time goes on the weakness is improving but has not completely resolved yet. Does not take a statin anymore but used to in the past. Has had a headache and does have a history of migraines. He takes Topamax for that. At this time he is resting comfortably bed and does have mild right-sided neurological focal deficits. Denies nausea vomiting diarrhea shortness of breath, chest pain or any other symptoms at this time. Denies any difficulty swallowing. present at bedside. In the ER his his maker was interrogated and did show bouts of intermittent atrial fibrillation. Patient was admitted under observation to the hospital for TIA. He did have right-sided weakness which has improved by time of discharge. Very mild residual present. MRI cannot be performed secondary to metal in his foot and pacemaker ICD in place. Patient symptoms have improved. His ICD interrogation did reveal atrial fibrillation. Patient will be placed on aspirin and Eliquis going forward. He also has carotid artery disease with 1 side completely occluded another side 50 to 60%. He will be given neurology follow-up at discharge. Lipid panel was also obtained. Patient to be placed on atorvastatin 80 going forward for TIA. Discussed with patient and he demonstrated agreement of the plan. Follow-up with primary care and neurology outpatient. Of note patient also worked with physical therapy and was cleared to go home. Physical Exam Narrative: General: Alert oriented x3, patient seen sitting up in bed HEENT: Normocephalic, atraumatic, EOMI, breathing room air Cardio: Regular rate rhythm, normal S1-S2, sinus rhythm on monitor Respiratory: Good bilateral air entry, no wheezes no rhonchi appreciated GI: Abdomen soft, nontender, nondistended, bowel sounds + Behavior: Appropriate and cooperative Extremities:no edema, no cyanosis neuro: No gross focal deficits at this time. Discharge Data Studies Completed and Pending Completed Studies During Hospitalization Category Date Time Status CT head wo con* [id number] Stat Cat Scan 10/06/24 10:54 Completed CTA head neck [CT angio headneck* [id number]] Stat Cat Scan 10/06/24 10:54 Completed XR chest 1V portable [id number] Stat Exams 10/06/24 12:35 Completed US echo complete [CV. echo complete* [id number]] Routine Ultrasound 10/06/24 12:59 Completed Radiology Impressions Head CT 10/06/24 10:54 IMPRESSION: 1. No acute intracranial hemorrhage or edema. 2. Mild volume loss and small vessel disease. No acute infarct. Notified Dr. Maher at 10/06/2024 11:19 AM. Head/Neck CTA 10/06/24 10:54 IMPRESSION: 1. 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 Limited reconstitution distally due to an intact samish of Torres. 2. No thrombus or occlusion of the middle cerebral arteries. 3. Chronic small caliber RIGHT vertebral artery. 4. Increasing plaque in the RIGHT cervical bifurcation and in the intracranial carotid artery. Stenoses approaching 50 to 60%. Similar percent stenosis reported on 03/01/2024 carotid ultrasound. Chest X-Ray 10/06/24 12:35 IMPRESSION: 1. No acute finding. Laboratory Results WBC 6.28 10^3/uL (3.29-11.43) 10/07/24 04:33 RBC 5.09 10^6/uL (3.85-5.65) 10/07/24 04:33 Hgb 15.20 g/dL (11.27-16.99) 10/07/24 04:33 Hct 46.3 % (37-53) 10/07/24 04:33 MCV 91.0 fl (82-101) 10/07/24 04:33 MCH 29.9 pg (27-33) 10/07/24 04:33 MCHC 32.8 g/dL (30-55) 10/07/24 04:33 RDW 12.6 % (12.1-15.1) 10/07/24 04:33 Plt Count 225 10^3/cmm (157-399) 10/07/24 04:33 MPV 10.3 fL (7.4-10.4) 10/07/24 04:33 Neut % (Auto) 51.2 % 10/07/24 04:33 Lymph % (Auto) 34.9 % 10/07/24 04:33 Emery % (Auto) 10.2 % 10/07/24 04:33 Eos % (Auto) 2.2 % 10/07/24 04:33 Baso % (Auto) 1.0 % 10/07/24 04:33 Neut # (Auto) 3.22 10^3/uL (1.8-7.7) 10/07/24 04:33 Lymph # (Auto) 2.2 10^3/uL (0.8-4.8) 10/07/24 04:33 Emery # (Auto) 0.6 10^3/uL (0.2-0.9) 10/07/24 04:33 Eos # (Auto) 0.1 10^3/uL (0.0-0.8) 10/07/24 04:33 Baso # (Auto) 0.1 10^3/uL (0.0-0.1) 10/07/24 04:33 Nucleated RBC % (auto) 0 % 10/07/24 04:33 Nucleated RBCs # 0.0 /100WBC 10/07/24 04:33 PT 12.20 SECONDS (12.1-14.9) 10/06/24 11:00 INR 0.88 (0.8-1.2) 10/06/24 11:00 APTT 29.9 SECONDS (23.9-36.7) 10/06/24 11:00 Sodium 137 mmol/L (136-145) 10/07/24 04:33 Potassium 4.3 mmol/L (3.5-5.1) 10/07/24 04:33 Chloride 105 mmol/L (98-107) 10/07/24 04:33 Carbon Dioxide 21 mmol/L (22-29) L 10/07/24 04:33 Anion Gap 15.3 (5-19) 10/07/24 04:33 BUN 13 mg/dL (8-23) 10/07/24 04:33 Creatinine 1.3 mg/dL (0.7-1.2) H 10/07/24 04:33 GFR Calculation 55.4 mL/min (90-130) L 10/07/24 04:33 Glucose 120 mg/dL (65-115) H 10/07/24 04:33 POC Glucose 105 mg/dL (70-110) 10/06/24 10:53 Estimat Average Glucose 126 10/06/24 11:00 Hemoglobin A1c 6.0 % (4.0-6.0) 10/06/24 11:00 Calculated Osmolality 285 mOsm/kg (285-295) 10/07/24 04:33 Calcium 9.5 mg/dL (8.5-10.5) 10/07/24 04:33 Magnesium 2.3 mg/dL (1.7-2.3) 10/07/24 04:33 Total Bilirubin 0.4 mg/dL (0.15-1.2) 10/06/24 11:00 AST 15 U/L (0-40) 10/06/24 11:00 ALT 13 U/L (0-41) 10/06/24 11:00 Alkaline Phosphatase 108 U/L (40-130) 10/06/24 11:00 Total Protein 8.1 g/dL (6.6-8.7) 10/06/24 11:00 Albumin 4.5 g/dL (3.5-5.2) 10/06/24 11:00 Globulin 3.6 g/dL (1.3-4.6) 10/06/24 11:00 Triglycerides 196 mg/dL (0-150) H 10/06/24 11:00 Cholesterol 312 mg/dL (0-200) H 10/06/24 11:00 LDL Cholesterol, Calc 236 mg/dL (50-129) H 10/06/24 11:00 HDL Cholesterol 37 mg/dL (60-100) L 10/06/24 11:00 LDL/HDL Ratio 6.38 RATIO (0.00-3.22) H 10/06/24 11:00 Cholesterol/HDL Ratio 8.43 mg/dL (1.0-5.00) H 10/06/24 11:00 Vitamin B12 314 pg/mL (232-1245) 10/06/24 11:00 TSH 2.85 uIU/mL (0.27-4.20) 10/06/24 11:00 Urine Color Yellow (Yellow) 10/06/24 11:30 Urine Appearance Clear (CLEAR) 10/06/24 11:30 Urine pH 7.5 (5-7) 10/06/24 11:30 Ur Specific [place] 1.024 (1.005-1.030) 10/06/24 11:30 Urine Protein 1+ (Negative) A 10/06/24 11:30 Urine Glucose (UA) Negative (Normal) 10/06/24 11:30 Urine Ketones Negative (Negative) 10/06/24 11:30 Urine Blood Negative (Negative) 10/06/24 11:30 Urine Nitrate Negative (Negative) 10/06/24 11:30 Urine Bilirubin Negative (Negative) 10/06/24 11:30 Urine Urobilinogen 1.0 mg/dL (Negative) 10/06/24 11:30 Ur Leukocyte Esterase Negative (Negative) 10/06/24 11:30 Urine RBC 0-2 /hpf (0-2) 10/06/24 11:30 Urine WBC 0-5 /hpf (0-5) 10/06/24 11:30 Ur Squamous Epith Cells 0-5 /hpf (0-5) 10/06/24 11:30 Amorphous Sediment Not Reportable 10/06/24 11:30 Urine Bacteria None seen /hpf (NONE) 10/06/24 11:30 Hyaline Casts 0.40 /lpf 10/06/24 11:30 Vitals Last Vital Signs Temp 97.5 F L 10/07/24 11:50 Pulse 81 10/07/24 11:50 Resp 18 10/07/24 11:50 BP 126/71 10/07/24 11:50 Pulse Ox 97 10/07/24 11:50 O2 Del Method Room Air 10/07/24 11:50 Discharge Plan Discharge Patient Disposition: Home Condition: Stable Prescriptions: New Eliquis 5 mg Tablet 5 mg PO BID@0900,2100 Qty: 60 0RF atorvastatin 40 mg Tablet 80 mg PO BEDTIME Qty: 60 0RF aspirin 81 mg Tablet,Delayed Release (Dr/Ec) 81 mg PO DAILY Qty: 30 0RF Continued topiramate 100 mg tablet 100 mg PO DAILY 90 Days Qty: 90 1RF Entresto 49-51 mg tablet 1 tab PO BID 30 Days Qty: 60 3RF spironolactone 25 mg tablet 25 mg PO DAILY Qty: 30 3RF montelukast 10 mg tablet 10 mg PO DAILY Discharge Orders: Discharge Order (Routine); Ordered 10/07/24 Ordered By: Lili Alfonso Referrals: Nelida Galvan MD [Physician] - 2 weeks (We have notified your physician's clinic of the need for a follow-up appointment to be scheduled. If you have not heard from them within the next 2 business days, please call them directly. ) Damaris Akins FNP [Primary Care Provider] - 7-10 days (We have notified your physician's clinic of the need for a follow-up appointment to be scheduled. If you have not heard from them within the next 2 business days, please call them directly. ) Discharge Diet: Cardiac and Low Cholesterol Discharge Activity: Resume usual activity and As per PT/OT instructions Patient Instructions: Aspirin (By mouth), Atorvastatin (By mouth), Apixaban (By mouth), Ischemic Stroke (DC), Opioid Safety Discharge Attestations Time Spent in Discharge Care*: less than 30 min Quality Metrics Clinical Quality Measures [ No reported AMI, CVA or VTE this stay] Coding Level of Care Code Acute Code for Chg Fwd Diagnoses HTN (hypertension), benign I10 Chronic systolic congestive heart failure I50.22 Heart failure chronicity: chronic Heart failure type: systolic Ischemic cardiomyopathy I25.5 Cardiomyopathy type: ischemic Ischemic cardiomyopathy I25.5 ICD (implantable cardioverter-defibrillator) in place Z95.810 Atrial fibrillation I48.91 Bilateral carotid artery stenosis I65.23 Mixed hyperlipidemia E78.2 Hyperlipidemia type: mixed hyperlipidemia Cerebrovascular accident I63.9 TIA (transient ischemic attack) G45.9
--- NOTE | 2024-10-07 14:30 | PC.NURSE ---
Patient sitting up in chair, after showering, with visitors at bedside. Patient's states patient's face is drooping. This nurse had patient smile with teeth exposed and raise eyebrows, no evidence of facial drooping present, and daughter agreed. Discharge paper and follow-up appointments discussed with patient and family, as well as signs and symptoms to return to the hospital. All questions were answered. IV was removed and patient educated to leave pressure for 30-40 minutes due to being placed on a blood thinner. Patient ambulated to exit, escorted by this nurse and family, with all belongings.
[2024-10-07 14:34] VITALS: BP 126/71; PULSE 81; O2SAT 97
== END 2024-10-07 14:40 | disposition home or self-care (01) ==
LOC: ER 13:35 → MEDSURG 14:35
PROVIDERS: Admitting Provider Internal Medicine; Emergency Provider Emergency Medicine; PCP Nurse Practitioner; Visit Provider Internal Medicine
DX: G45.9 Transient cerebral ischemic attack, unspecified (principal); E78.2 Mixed hyperlipidemia; I65.23 Occlusion and stenosis of bilateral carotid arteries; I48.91 Unspecified atrial fibrillation; Z95.810 Presence of automatic (implantable) cardiac defibrillator; I25.5 Ischemic cardiomyopathy; I11.0 Hypertensive heart disease with heart failure; I50.22 Chronic systolic (congestive) heart failure; F17.200 Nicotine dependence, unspecified, uncomplicated; Z95.1 Presence of aortocoronary bypass graft; Z82.49 Family history of ischemic heart disease and other diseases of the circulatory system
CPT/HCPCS: 36415; 36416; 70450; 70496; 70498; 71045; 80048; 80053; 80061; 81001; 82607; 82962; 83036; 83735; 84443; 85025; 85610; 85730; 93005; 93306; 96372; 97110; 97161; 97165; 99285; G0378; J1644

== ENCOUNTER → 2024-11-24 13:06 | Outpatient (BNVA) | payer MEDICARE, SELFPAY | PROVIDERS: PCP Nurse Practitioner; Referring Provider Nurse Practitioner; Visit Provider Specialist | DX: G45.1 Carotid artery syndrome (hemispheric) (principal); G43.711 Chronic migraine without aura, intractable, with status migrainosus; I48.91 Unspecified atrial fibrillation; I25.5 Ischemic cardiomyopathy; Z95.810 Presence of automatic (implantable) cardiac defibrillator | CPT/HCPCS: 99205 ==

== ENCOUNTER → 2024-12-05 15:51 | Outpatient (BNVA) | payer MEDICARE, SELFPAY | PROVIDERS: PCP Nurse Practitioner; Visit Provider Internal Medicine Cardiovascular Disease | DX: I11.0 Hypertensive heart disease with heart failure (principal); I50.22 Chronic systolic (congestive) heart failure; Z95.810 Presence of automatic (implantable) cardiac defibrillator; I65.23 Occlusion and stenosis of bilateral carotid arteries; E78.2 Mixed hyperlipidemia; I25.10 Atherosclerotic heart disease of native coronary artery without angina pectoris; I25.5 Ischemic cardiomyopathy; I48.0 Paroxysmal atrial fibrillation; Z79.01 Long term (current) use of anticoagulants; Z79.82 Long term (current) use of aspirin | CPT/HCPCS: 99214 ==

== ENCOUNTER → 2025-03-23 14:15 | Outpatient (BNVA) | payer MEDICARE, SELFPAY | PROVIDERS: PCP Nurse Practitioner; Visit Provider Nurse Practitioner | DX: E11.9 Type 2 diabetes mellitus without complications (principal) | CPT/HCPCS: 80053; 83036 ==

== ENCOUNTER → 2025-04-20 09:03 | Outpatient (BNVA) | payer MEDICARE, SELFPAY | PROVIDERS: PCP Nurse Practitioner; Visit Provider Nurse Practitioner | DX: I50.22 Chronic systolic (congestive) heart failure (principal) | CPT/HCPCS: 80048 ==

== ENCOUNTER → 2025-04-24 14:19 | Outpatient (BNVA) | payer MEDICARE, SELFPAY | PROVIDERS: PCP Nurse Practitioner; Visit Provider Specialist | DX: G45.1 Carotid artery syndrome (hemispheric) (principal); G43.711 Chronic migraine without aura, intractable, with status migrainosus; I48.0 Paroxysmal atrial fibrillation; I25.5 Ischemic cardiomyopathy; Z95.810 Presence of automatic (implantable) cardiac defibrillator | CPT/HCPCS: 99214 ==

== ENCOUNTER → 2025-06-15 10:22 | Outpatient (BNVA) | payer MEDICARE, SELFPAY | PROVIDERS: PCP Nurse Practitioner; Visit Provider Internal Medicine Cardiovascular Disease | DX: I11.0 Hypertensive heart disease with heart failure (principal); I50.9 Heart failure, unspecified; I25.10 Atherosclerotic heart disease of native coronary artery without angina pectoris; I65.23 Occlusion and stenosis of bilateral carotid arteries; I48.91 Unspecified atrial fibrillation; Z79.01 Long term (current) use of anticoagulants; Z79.82 Long term (current) use of aspirin; I25.5 Ischemic cardiomyopathy; E78.5 Hyperlipidemia, unspecified; Z95.1 Presence of aortocoronary bypass graft; Z95.810 Presence of automatic (implantable) cardiac defibrillator; Z86.73 Personal history of transient ischemic attack (TIA), and cerebral infarction without residual deficits; R06.02 Shortness of breath | CPT/HCPCS: 80048; 99214 ==

== ENCOUNTER → 2025-06-21 09:42 | Outpatient (BNVA) | payer MEDICARE, SELFPAY | PROVIDERS: PCP Nurse Practitioner; Visit Provider Nurse Practitioner | DX: E11.9 Type 2 diabetes mellitus without complications (principal) | CPT/HCPCS: 83036 ==

== ENCOUNTER 2025-06-28 14:05 | Outpatient (CLI) | payer MEDICARE, SELFPAY ==
--- NOTE | 2025-06-28 14:15 | CT_ITS ---
WS: [id number] CT ANGIOGRAM CEREBRAL AND CAROTID ARTERIES HISTORY: CVA, known occlusion LEFT cervical carotid artery. TECHNIQUE: CT angiogram is performed of the carotid and cerebral arteries. During arterial injection imaging is obtained from the skull vertex to the aortic arch in 1.25 mm imaging. Coronal and sagittal reformats are submitted. Additional multi planar reformats of the carotid and cerebral arteries are submitted, MIP imaging also reviewed. NASCET criteria utilized. All CT scans at [facility] use at least one of these dose optimization techniques: automated exposure control; mA and/or kV adjustment per patient size (includes targeted exams where dose is matched to clinical indication); or iterative reconstruction. CONTRAST: Omnipaque 350; 100 mL IV. DLP: 1223.83 mGy.cm COMPARISON: 10/06/[address] head: No acute intracranial hemorrhage or edema. New areas of decreased attenuation involving the frontoparietal vertex since 10/06/2024. There has been progression of small vessel disease since the prior study. Cortical thinning and volume loss in the posterior LEFT parietal occipital c ortex. Carotid Angiogram: Right carotid: Common carotid artery: Normally arises from the innominate artery. Small amount of plaque in the central common cervical carotid artery. Internal carotid artery: Increasing plaque and intimal thickening at the carotid bifurcation. Stenosis has not significantly progressed. Stenosis estimated near 50%. External carotid artery: Patent. Left carotid: Common carotid artery: No occlusion involving the origin of the common carotid artery. Internal carotid artery: Known chronic occlusion. External carotid artery: Patent. Right vertebral artery: Very small caliber throughout its course is similar to the prior study. Left vertebral artery: Dominant LEFT vertebral artery. There are a few areas of calcified plaque throughout the course. There is plaque at the origin of the LEFT vertebral artery resulting in moderate stenosis. Subclavian arteries: Calcified plaque and intimal thickening involving the proximal LEFT subclavian artery. No high-grade stenosis. Findings similar to the prior study. RIGHT subclavian artery is patent. Upper thorax: LEFT apical pleural thickening and calcification. No change. Atherosclerotic plaque within the aortic arch. Prior CABG. LEFT subclavian defibrillator. Thyroid gland: Normal. Osseous structures: Unremarkable. CEREBRAL ANGIOGRAM: Intracranial vertebral arteries: Tiny but patent LEFT vertebral artery similar to the prior study. Dominant LEFT vertebral artery with mild plaque. Basilar artery: No significant stenosis or occlusion. No aneurysm. Intracranial Internal carotid arteries: Patent RIGHT intracranial carotid artery but there is a moderate amount of plaque to the cavernous sinuses. Stenosis estimated around 50 to 60%. Occluded intracranial LEFT ICA. There is reversal of flow in partial reconstitution of the very distal LEFT ICA. Middle cerebral arteries: Both middle cerebral arteries are patent. LEFT vertebral artery is smaller caliber due to reconstitution through a patent sitka of Torres. Slight paucity of vessels in the distal LEFT MCA territory. No aneurysms. Anterior cerebral arteries and ACOM: Normal. Posterior cerebral arteries and PCOM's: Normal. Dural venous sinuses are normally enhancing. Mastoid air cells: Normal. Paranasal sinuses: Normal. Calvarium: Normal. CT/CT angio headneck* [id number] IMPRESSION: 1. Known chronic occlusion LEFT ICA beginning at the origin from the aortic ar ch. 2. RIGHT cervical carotid artery stenosis at the bifurcation estimated at 50% without progression since 10/06/2024. 3. Chronic very small caliber RIGHT vertebral artery but it is patent. 4. Moderate stenosis origin of the LEFT vertebral artery from the subclavian a rtery. 5. Small caliber LEFT MCA artery but it is patent. LEFT MCA is patent due to a n intact sitka of Torres. 6. Dense calcification bilaterally in the carotid cavernous sinuses with steno sis estimated at 50 to 60% on the RIGHT. 7. Progression of small vessel ischemic changes bilaterally towards the vertex of the frontal parietal lobes. Additional new ischemic changes in the LEFT shivani or occipital cortex. Changes are new since 10/06/2024 CT. This can be further e valuated by MR brain.
[2025-06-28] MEDS: iohexol 350 mg/mL 500 mL Btl (per mL) IV (16:24)
== END 2025-06-28 14:06 | disposition home or self-care (01) ==
LOC: RAD 14:05
PROVIDERS: PCP Nurse Practitioner; Visit Provider Internal Medicine Cardiovascular Disease
DX: I65.22 Occlusion and stenosis of left carotid artery (principal); I65.21 Occlusion and stenosis of right carotid artery; I65.01 Occlusion and stenosis of right vertebral artery; I65.02 Occlusion and stenosis of left vertebral artery; I67.9 Cerebrovascular disease, unspecified; I65.23 Occlusion and stenosis of bilateral carotid arteries; I67.82 Cerebral ischemia; I63.89 Other cerebral infarction; I63.81 Other cerebral infarction due to occlusion or stenosis of small artery
CPT/HCPCS: 70496; 70498

== ENCOUNTER → 2025-07-04 12:46 | Outpatient (BNVA) | payer MEDICARE, SELFPAY | PROVIDERS: PCP Nurse Practitioner; Visit Provider Internal Medicine Cardiovascular Disease | DX: Z45.02 Encounter for adjustment and management of automatic implantable cardiac defibrillator (principal) | CPT/HCPCS: 93296 ==

== ENCOUNTER → 2025-08-21 15:40 | Outpatient (BNVA) | payer MEDICARE, SELFPAY | PROVIDERS: PCP Nurse Practitioner; Visit Provider Nurse Practitioner | DX: M54.50 Low back pain, unspecified (principal); N39.0 Urinary tract infection, site not specified | CPT/HCPCS: 81000; 87086 ==

== ENCOUNTER → 2025-10-03 13:38 | Outpatient (BNVA) | payer MEDICARE, SELFPAY | PROVIDERS: PCP Nurse Practitioner; Visit Provider Internal Medicine Cardiovascular Disease | DX: Z45.02 Encounter for adjustment and management of automatic implantable cardiac defibrillator (principal) | CPT/HCPCS: 93296 ==